=== PATIENT | female | born 1980 | race Caucasian/White ===

== ENCOUNTER → 2017-09-15 13:50 | Outpatient (CLI) | payer MEDICAID, SELFPAY ==
--- NOTE | 2017-09-15 13:54 | RAD_ITS ---
STUDY: X-RAY - RIGHT KNEE REASON FOR EXAM: Female, 37 years old. Knee pain. TECHNIQUE: 4 view(s) of the knee. COMPARISON: None. FINDINGS: Normal visualized distal femur. Normal visualized proximal tibia and fibula. Normal proximal tibiofibular articulation. Normal medial femorotibial compartment. Normal lateral femorotibial compartment. Normal patellofemoral articulation. The soft tissue structures are unremarkable. RAD/Knee 4 or More Views IMPRESSION: Normal x-ray examination of the knee. Electronically Signed: Chong Golden MD at 15:40 EST Tel [phone], Service support ,
--- NOTE | 2017-09-15 13:54 | RAD_ITS ---
STUDY: X-RAY - LEFT KNEE REASON FOR EXAM: Female, 37 years old. Bilateral knee pain. TECHNIQUE: 4 view(s) of the knee. COMPARISON: None. FINDINGS: Normal visualized distal femur. Normal visualized proximal tibia and fibula. Normal proximal tibiofibular articulation. There is mild degenerative arthrosis of the medial femorotibial compartment. Normal lateral femorotibial compartment. Normal patellofemoral articulation. The soft tissue structures are unremarkable. RAD/Knee 4 or More Views IMPRESSION: Degenerative arthrosis. Electronically Signed: Chong Golden MD at 15:40 EST Tel [phone], Service support ,
== END ==
PROVIDERS: Visit Provider Orthopaedic Surgery
DX: M17.12 Unilateral primary osteoarthritis, left knee (principal); M25.561 Pain in right knee
CPT/HCPCS: 73564

== ENCOUNTER → 2017-11-22 17:06 | Outpatient (CLI) | payer MEDICAID, SELFPAY ==
--- NOTE | 2017-11-22 17:07 | MRI_ITS ---
STUDY: MRI LEFT KNEE REASON FOR EXAM: Female, 37 years old. Pain. Decreased range of motion. TECHNIQUE: Standardized fat and water weighted pulse sequences were obtained in all 3 orthogonal planes. COMPARISON: X-ray September 16, 2015. FINDINGS: Normal medial meniscus. Normal hyaline cartilage of the medial femorotibial compartment. There is mild osteoarthritic spur formation of the medial knee compartment. Normal medial collateral ligamentous complex (MCL). Normal distal semimembranosus, gracilis and semitendinosus tendons. Normal lateral meniscus. Normal hyaline cartilage of the lateral femorotibial compartment. There is mild osteoarthritic spur formation of the lateral knee compartment. There is reactive marrow edema of the lateral tibial plateau, series 4 images and . Normal proximal tibiofibular articulation. Normal lateral collateral (fibular) ligament. Normal popliteus tendon. Normal biceps femoris tendon. Normal anterior cruciate ligament (ACL). Normal posterior cruciate ligament (PCL). There is arthrosis of the patellofemoral articulation. There is diffuse, less than 50% thickness articular cartilage loss of the patellofemoral compartment. Normal medial and lateral patellar retinaculum. Normal quadriceps tendon. Normal patellar tendon. Normal Hoffa's fat pad. There is a small volume joint effusion. The soft tissues are unremarkable. The otherwise visualized osseous structures are unremarkable. MRI/Lower Ext Joint Only (Routine) IMPRESSION: No meniscal tear. Marrow edema with stress injury or fracture of the lateral tibial plateau. Degenerative change with mild spurring. Electronically Signed: Julio Oakes MD at 19:58 EDT , Service support ,
--- NOTE | 2017-11-22 17:15 | MRI_ITS ---
STUDY: MRI LEFT ANKLE WITHOUT CONTRAST REASON FOR EXAM: Female, 37 years old. Medial ankle pain. History of tarsal tunnel syndrome. History of tibial tendinosis. TECHNIQUE: Standardized fat and water weighted pulse sequences were obtained in all 3 orthogonal planes. COMPARISON: None. FINDINGS: Normal subcutis adipose space. There is minimal posterior tibialis tendinosis with tenosynovitis (axial series 3 images 8-12). Normal flexor digitorum longus tendon. Normal flexor hallucis longus tendon. Normal peroneus longus and brevis tendons. Normal tibialis anterior tendon. Normal extensor hallucis longus tendon. Normal extensor digitorum longus tendons. Normal Achilles tendon and teno-osseous insertion. There is thickening of the proximal plantar fascia with a calcaneal spur. Findings are compatible with plantar fasciitis (sagittal series 7 images 9-14). Normal plantar calcaneal tubercles. Normal intrinsic muscles of the rearfoot. Normal distal tibiofibular syndesmotic ligamentous complex. Normal lateral ligamentous complex. Normal subtalar ligaments and sinus tarsi. There are varices within the tarsal tunnel (axial series 3 images 10-15). Normal deltoid ligamentous complexes. Normal plantar calcaneonavicular (spring) ligament. Normal tibiotalar articulation. Normal talar dome. There is mild subtalar arthrosis (sagittal series 8 images 8-14). There is mild arthrosis of the talonavicular joint (sagittal series 8 images 6-11). Normal calcaneocuboid articulation. Normal navicular-cuneiform articulations. MRI/Lower Ext Joint Only (Routine) IMPRESSION: Posterior tibialis tendinosis with tenosynovitis. Findings compatible with proximal plantar fasciitis. 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 Electronically Signed: Jaylan Crowley MD at 15:55 EDT , Service support ,
== END ==
PROVIDERS: Family Provider Family Medicine; PCP Family Medicine; Visit Provider Orthopaedic Surgery
DX: S83.282A Other tear of lateral meniscus, current injury, left knee, initial encounter (principal); M76.822 Posterior tibial tendinitis, left leg; G57.52 Tarsal tunnel syndrome, left lower limb; M21.42 Flat foot [pes planus] (acquired), left foot; M72.2 Plantar fascial fibromatosis
CPT/HCPCS: 73721

== ENCOUNTER → 2017-12-05 15:33 | Outpatient (CLI) | payer MEDICAID, SELFPAY ==
--- NOTE | 2017-12-05 15:54 | BD_ITS ---
STUDY: DUAL ENERGY X-RAY ABSORPTIOMETRY / DXA REASON FOR EXAM: Female, 37 years old. Left lower tib-fib stress fracture. TECHNIQUE: Bone Mineral Density (BMD) measurements of lumbar spine and bilateral hips were obtained. COMPARISON: None. FINDINGS: Lumbar Spine (L1-L4): g/cm2 (1.228) / T-score (0.4) / Z-score (0.4) Findings are suggestive of normal bone density with a low fracture risk. Left Femur Total: g/cm2 (0.982) / T-score (-0.2) / Z-score (0.0) Left Femoral Neck: g/cm2 (0.972) / T-score (-0.5) / Z-score (-0.1) Right Femur Total: g/cm2 (1.106) / T-score (0.8) / Z-score (1.0) Right Femoral Neck: g/cm2 (1.171) / T-score (1.0) / Z-score (1.4) BD/Dexa Bone Density Study IMPRESSION: The patient is considered normal as outlined below according to World Rodriguez Organization (WHO) criteria with a low fracture risk. Reference Information: The T-score is the number of standard deviations above or below the standard which is normal for young adults at their peak bone mineral density. The World Health Organization (WHO) interprets the T-scores as follows: Above -1 Normal bone density Between -1 and -2.5 Osteopenia Equal to / or below -2.5 Osteoporosis As a practical clinical guideline, osteopenia may be graded as follows: Mild -1 through -1.5 Moderate -1.6 through -2.0 Severe -2.1 through -2.4 The Z-score is the number of standard deviations above or below age-matched controls. A Z-score of less than -1.5 would be considered abnormal. References: 1. NIH Osteoporosis and Related Bone Diseases http://www.osteo.org 2. International Society for Clinical Densitometry http://www.iscd.org 3. National Osteoporosis Foundation http://www.nof.org Electronically Signed: Chong Golden MD at 8:56 EDT Tel [phone], Service support ,
== END ==
PROVIDERS: Family Provider Family Medicine; PCP Family Medicine; Visit Provider Orthopaedic Surgery
DX: M84.369A Stress fracture, unspecified tibia and fibula, initial encounter for fracture (principal)
CPT/HCPCS: 77080

== ENCOUNTER → 2018-01-04 10:28 | Outpatient (CLI) | payer MEDICAID, SELFPAY ==
--- NOTE | 2018-01-04 10:30 | RAD_ITS ---
STUDY: X-RAY - LEFT KNEE REASON FOR EXAM: Female, 37 years old. Stress fracture. TECHNIQUE: 4 view(s) of the knee. COMPARISON: None. FINDINGS: Normal visualized distal femur. Normal visualized proximal tibia and fibula. Normal proximal tibiofibular articulation. There is no demonstrated fracture. Normal medial femorotibial compartment. Normal lateral femorotibial compartment. Normal patellofemoral articulation. There is no demonstrated joint effusion. The soft tissue structures are unremarkable. RAD/Knee 4 or More Views IMPRESSION: Normal x-ray examination of the knee. Electronically Signed: Fantasma Pruitt MD at 17:10 EDT , Service support ,
== END ==
PROVIDERS: Family Provider Family Medicine; PCP Family Medicine; Visit Provider Orthopaedic Surgery
DX: M25.562 Pain in left knee (principal)
CPT/HCPCS: 73564

== ENCOUNTER → 2018-06-28 16:04 | Outpatient (CLI) | payer MEDICAID, SELFPAY ==
[2018-07-03 10:49] LABS: HPV Reflexed? NOT INDICATED
--- OUTSIDE RECORDS SUMMARY | 2018-08-14 13:43 | XMS RPT_ITS ---
:1980 Author Organization [facility] Care Team Providers Name Role Phone DOMITILA RINCON Attending Unavailable KRJAIME, DOMITILA Referring Unavailable KRUPITZER, DOMITILA Referring Unavailable SARAH MANLEY () Attending Unavailable KRUPCONCEPCION, DOMITILA Referring Unavailable KRUPITZER, DOMITILA Referring Unavailable KRUPITZER, DOMITILA Attending Unavailable KRUPITZER, DOMITILA Attending Unavailable Weeman, Ken Attending Unavailable Laura, Ken Referring Unavailable Krupitzer, Domitila R Primary Care Unavailable Galo, Elijah Attending Unavailable Primay Care Physicia, No Referring Unavailable Primay Care Physicia, No Primary Care Unavailable Elijah Rosenthal Attending Unavailable Galo, Elijah Referring Unavailable Primay Care Physicia, No Primary Care Unavailable Galo, Elijah Attending Unavailable Primay Care Physicia, No Referring Unavailable Primay Care Physicia, No Primary Care Unavailable Elijah Rosenthal Attending Unavailable Galo, Elijah Referring Unavailable Krupitzer, Domitila R Primary Care Unavailable Elijah Kenyon Consulting Unavailable Elijah Rosenthal Attending Unavailable Krupitzer, Domitila R Referring Unavailable Krupitzer, Domitila R Primary Care Unavailable Galo, Elijah Attending Unavailable Krupitzer, Domitila R Primary Care Unavailable Glao, Elijah Attending Unavailable Krupitzer, Domitila R Referring Unavailable Krupitzer, Domitila R Primary Care Unavailable Elijah Rosenthal Attending Unavailable Galo, Elijah Referring Unavailable Krupitzer, Domitila R Primary Care Unavailable PROBLEMS PROBLEMS DATE TYPE CONDITION / CODE ATTENDING STATUS SOURCE 06/28/2018 Unknown Z12.4 - Encounter [facility] for screening for Community malignant neoplasm [facility] / Repository Z12.4(ICD-10) 01/04/2018 Unknown M25.562 - Pain in Elijah Rosenthal left knee / Community M25.562(ICD-10) Hospital Repository 09/16/2013 Active Postprocedural NA Active [facility] hypothyroidism / Clinic Main E89.0(ICD-10) [place] Repository 12/07/2017 Active Displaced bicondylar NA Active [facility] fracture of left [facility] Main tibia, subsequent [place] encounter for closed Repository fracture with routine healing / S82.142D(ICD-10) 12/07/2017 Active Myalgia / NA Active [facility] M79.1(ICD-10) Clinic Main [place] Repository 12/07/2017 Active Pain in unspecified NA Active [facility] joint / Clinic Main M25.50(ICD-10) [place] Repository 12/07/2017 Active Pain in left ankle NA Active [facility] joints of left Clinic Main foot / [place] M25.572(ICD-10) Repository 12/07/2017 Active Other chronic pain / NA Active [facility] G89.29(ICD-10) Clinic Main [place] Repository 11/22/2017 Unknown M23.92 - Unspecified Elijah Rosenthal Active [place] internal derangement Community of left knee / Hospital M23.92(ICD-10) Repository 11/22/2017 Unknown S83.282A - Other Elijah Rosenthal Active [facility] tear of lateral Community meniscus, current Hospital injury, left knee, Repository initial encounter / S83.282A(ICD-10) 09/15/2017 Unknown M25.561 - Pain in Elijah Rosenthal Active [facility] right knee / Community M25.561(ICD-10) Hospital Repository 09/15/2017 Unknown M19.011 - Primary Elijah Rosenthal Active [facility] osteoarthritis, Community right shoulder / Hospital M19.011(ICD-10) Repository 09/15/2017 Unknown Z98.890 - Other Elijah Rosenthal Active [place] specified Community postprocedural Hospital states / Repository Z98.890(ICD-10) PROCEDURES PROCEDURES No Procedure Records FoundRESULTS RESULTS PROGRESS Observed: 07/05/2018 Status: COMPLETED Source: [place] 2:11 PM [facility] RE[facility]IT[facility] HNO ID: [id number] Author: Domitila Rincon Service: (none) Author Type: Physician Type: Progress Notes Filed: 07/05/2018 3:24 PM Note Text: Rody Malave is a 37 year old female presenting for Established Patient (Pt states here for joint pain) FM: She has still been getting the joint pain Seems to have gotten worse Worse in her hands and fingers No swelling Has pain all the time, Sharp pain, Move a certain way, and will get a jolt of pain Worse in the morning Is slightly better when she is active Get burning pain in the elbows Has in the shoulder, elbows, back, knees Hips are ok She does walk on the treadmill Does not help Depression: Has been doing the zoloft Had seen [facility] SOLO[facility] Was diagnosed with endometriosis She was supposed to be started OCP Has been noticing some heart palpitations at night Will be fast and hard at times Will last for about 1 hour Will then go away HISTORIES: PAST MEDICAL HISTORY Diagnosis Date - Anxiety - Calcaneal spur of foot Lt - Depression on zoloft since 2003 - Endometriosis - Multiple thyroid nodules - Post-surgical hypothyroidism PAST SURGICAL HISTORY Procedure Laterality Date - ; THYROIDECTOMY TOTAL OR COMPLETE 08/16/12 [facility] - COLONOSCOP W/ OR W/O [facility] SPEC 09/10/14 Colonoscopy - EGD W/O OR W/BRUSH/WASH 07/04/2014 EGD - EXPLORATORY OF ABDOMEN 1998 Laparotomy, exp removal 2 cysts and endometrial implants - VAGINAL DELIVERY ONLY x3 FAMILY HISTORY Problem Relation Age of Onset - Diabetes Mother - None Father - None Sister - None Sister Social History: Social History Substance Use Topics - Smoking status: Never Smoker - Smokeless tobacco: Never Used - Alcohol use No Allergies: ALLERGIES No Known Allergies Medications: cyclobenzaprine (FLEXERIL) 10 mg tablet Take 1 tablet by mouth twice daily as needed. DIGESTIVE PROBIOTIC 2 billion cell cpSP Take 1 capsule by mouth once daily. levothyroxine (SYNTHROID) 150 mcg tablet Take 1 tablet by mouth once daily. With additional 1/2 tablet 2 days per week. Take on empty stomach. For Thyroid. multivitamin tablet Take 1 tablet by mouth once daily. pregabalin (LYRICA) 75 mg capsule Take 1 capsule by mouth twice daily for 90 days. sertraline (ZOLOFT) 50 mg tablet Take 1 tablet by mouth once daily. REVIEW OF SYSTEMS See HPI PHYSICAL EXAMINATION: BP 122/84 Pulse 65 Temp 37.1 ?C (98.7 ?F) (Oral) Resp 18 Wt 104.2 kg (229 lb 12.8 oz) SpO2 100% BMI 38.24 kg/m? General Appearance: Well appearing, alert, in no acute distress, well-hydrated, well nourished. and Overweight. Neck: Supple, no adenopathy; thyroid symmetric, normal size, no bruits. Lungs: lungs clear to auscultation. No wheezing, rhonchi, rales. Heart: RRR without murmur, gallop, or rubs. No ectopy. Extremities: No deformities, edema, skin discoloration, clubbing or cyanosis. Good capillary refill. . Musculoskeletal: Neck?tenderness noted in the paraspinals as well as the midline Upper extremities?tenderness noted over the joint capsule as well as over the medial and lateral epicondyles bilaterally Hands?no joint swelling or redness, tenderness to palpation in the inner phalangeal joints bilaterally Back?tenderness in the paraspinals and SI joints of the lumbar spine No tenderness noted in the hips Knees?tenderness over the medial lateral joint lines, no effusion, tenderness noted diffusely in the lower legs, no edema, no redness. Peripheral Pulses: Normal. Psych: Appropriate mood and affect, maintains good eye contact, answers questions appropriately. ASSESSMENT/PLAN: 1. Fibromyalgia - ICD9: 729.1, ICD10: M79.7 (primary diagnosis) Patient continues with significant joint pain and all over body pain Has been her hands shoulders and upper back lower back knees and lower legs Has been doing the Lyrica but has not noted any significant improvement Did not note any improvement with a course of steroids Had thorough evaluation and workup with rheumatology Not thought to be an inflammatory cause For now, I have added on Cymbalta She will continue with exercise Continue with the Lyrica Recheck in about 2 months Call if anything drastically changes or worsens If no improvement with treatment, may recommend another blood panel for reevaluation with rheumatology - DULOXETINE 30 MG CAPSULE,DELAYED RELEASE 2. Generalized anxiety disorder - ICD9: 300.02, ICD10: F41.1 3. Depression, unspecified depression type - ICD9: 311, ICD10: F32.9 Patient has been doing the Zoloft Unsure how much this has been helping Feels more stressed and anxious Very worried and concerned about ongoing symptoms Has been on the Zoloft for some time however Given the continuing fibromyalgia type symptoms recommended switching to Cymbalta She will slowly taper off the Zoloft and then start the Cymbalta She will keep me updated via my chart in 4?5 weeks Will also follow-up in 8 weeks 4. Post-surgical hypothyroidism - ICD9: 244.0, ICD10: E89.0 Continue same dose of Synthroid TSH Date Value Ref Range Status 01/23/2018 3.130 0.400 - 5.500 uU/mL Final Comment: If the patient is , TSH reference range varies by gestational period: First Trimester 0.100-2.500 uU/mL Second Trimester 0.200-3.000 uU/mL Third Trimester 0.300-3.000 uU/mL References: 1. De Brianot L, Carlos M, Julien EK, et al. Management of Thyroid Dysfunction during and : An Endocrine Society Clinical Practice Guideline. J Clin Endocrinol Metab, 2012:97:7970-1724. 2. Abe HAMILTON. Overview of thyroid disease in . UpToDate. 2016. Accessed on January 01, 2016. 5. Palpitations - ICD9: 785.1, ICD10: R00.2 Patient has reported couple episodes of palpitations mainly at nighttime Reports no chest pain, shortness of breath, no coughing For now, we'll continue to monitor and she will keep track of when she gets it and see if there is some sort of inciting event Dmoitila Rincon MD Component Latest Ref Rng AND Units 08/06/2015 09/28/2015 09/01/2016 12/07/2016 12/07/2016 12/07/2016 12/07/2016 12/07/2017 01/23/2018 11:25 AM 11:25 AM 11:25 AM 11:33 AM WBC 3.70 - 11.00 k/uL 5.45 4.29 5.73 RBC 3.90 - 5.20 m/uL 4.90 4.73 4.81 Hemoglobin 11.5 - 15.5 g/dL 13.9 13.2 13.6 Hematocrit 36.0 - 46.0 % 42.0 42.7 42.6 MCV 80.0 - 100.0 fL 85.7 90.3 88.6 MCH 26.0 - 34.0 pG 28.4 27.9 28.3 MCHC 30.5 - 36.0 g/dL 33.1 30.9 31.9 RDW-CV 11.5 - 15.0 % 13.0 12.4 12.5 Platelet Count 150 - 400 k/uL 274 269 250 MPV 9.0 - 12.7 fL 9.6 9.8 9.6 Neut% % 61.1 51.9 Abs Neut (ANC) 1.45 - 7.50 k/uL 3.33 2.23 Lymph% % 30.6 37.5 Abs Lymph 1.00 - 4.00 k/uL 1.67 1.61 [place]% % 7.3 8.9 Abs [place]trim 0.00 - 0.86 k/uL 0.40 0.38 Eosin% % 0.6 1.2 Abs Eosin 0.00 - 0.45 k/uL 0.03 0.05 Baso% % 0.4 0.5 Abs Baso 0.00 - 0.10 k/uL 0.02 0.02 Nucleated Reds 0 /100 WBC 0.0 NRBC 0 /100 WBC 0 Absolute nRBC <0.01 k/uL 0.00 <0.01 Diff Type Auto Diff Auto Diff Protein, Total 6.3 - 8.0 g/dL 7.3 6.8 7.2 Albumin 3.9 - 4.9 g/dL 4.5 4.2 4.5 Calcium 8.5 - 10.2 mg/dL 9.6 9.3 9.3 Bilirubin, Total 0.2 - 1.3 mg/dL 0.6 0.4 0.7 Alkaline Phosphatase 32 - 117 U/L 48 39 41 AST 13 - 35 U/L 22 17 18 Glucose 74 - 99 mg/dL 80 89 94 BUN 7 - 21 mg/dL 10 10 11 Creatinine 0.58 - 0.96 mg/dL 0.93 0.90 0.85 0.85 Sodium 136 - 144 mmol/L 140 141 139 Potassium 3.7 - 5.1 mmol/L 4.5 4.3 4.1 Chloride 97 - 105 mmol/L 103 103 102 CO2 22 - 30 mmol/L 25 25 27 Anion Gap 9 - 18 mmol/L 12 13 10 ALT 7 - 38 U/L 13 11 12 eGFR- >60 >60 >60 >60 eGFR-All Other Races . >60 >60 >60 >60 Sm Antibody <1.0 AI <0.2 MONITORING SPECIALIST Antibody <1.0 AI 0.6 SSA Antibody <1.0 AI <0.2 SSB Antibody <1.0 AI <0.2 Centromere Ab <1.0 AI <0.2 Scleroderma Ab, IgG <1.0 AI <0.2 Lexy 1 Antibody <1.0 AI <0.2 Ribosomal MONITORING SPECIALIST <1.0 AI <0.2 Chromatin Antibody <1.0 AI <0.2 Bilirubin, Conjug <0.2 mg/dL 0.2 (H) Hep B Core Ab, Total Negative Negative Hep C Antibody IA Negative Negative Hep B Surface Ag Negative Negative Hep B Surface Ab, Qual Negative Negative Culture Account Credited Specimen Rejected. Specimen unacceptable, received on dry swab. Clinic Desk[facility] notified. Spoke to . . . DIMITRI Negative Positive (A) DIMITRI Titer Negative 1:160 (A) DIMITRI Pattern Atypical speckled Hemoglobin A1C 4.3 - 5.6 % 5.4 Estimated Average Glucose mg/dL 108 TSH 0.400 - 5.500 uU/mL 6.700 (H) 2.130 88.440 (H) 0.799 19.510 (H) 3.130 Free T4 0.9 - 1.7 ng/dL 1.2 1.2 Rheumatoid Factor <16 IU/mL 12 WSR 0 - 20 mm/hr 2 CK 42 - 196 U/L 98 UltraSens C-Reactive Protein <3.1 mg/L 0.6 CCP Antibody, IgG <20 Units <15 Anti-SSA <1.0 AI <0.2 Anti-SSB <1.0 AI <0.2 ANAP LEON Reflex Bill Billed for services performed DNA Antibody w/Confirmation <30 IU/mL <12 C3 86 - 166 mg/dL 103 C4 13 - 46 mg/dL 24 Treatment Recommendations for Fibromyalgia developed by Dr. Stewart Ornelas M.D. ? ? 1. Medications: We recommend first trying a tricyclic antidepressant such as cyclobenzaprine (Flexeril) or amitriptyline (Elavil) in patients who have not yet had an adequate trial of this class of medications. We prefer Flexeril. Although Flexeril is generally marketed as a muscle relaxant, the similarities in chemical structure to the tricyclic antidepressants make it a very useful medication to treat pain and it can also be helpful for treating sleep disturbance. Begin Flexeril at a dose of 5 mg 2-3 hours before bedtime. Taking the medication in this fashion can help decrease morning grogginess. Increase the dose by 5 mg every week as tolerated until a total dose of 20 mg is achieved. Increased fluid intake may decrease the incidence of dry mouth and constipation. Patients should also be warned about potential weight gain. Amitriptyline (Elavil) can be used similarly in doses starting at 10 mg before bedtime, increasing by 10 mg weekly as tolerated up to 50 mg. Nortriptyline is also a good choice for many people. ? If maximum tolerated doses of trycyclics are not providing adequate pain relief, we recommend addition (if Flexeril/Elavil is helping) or substitution of a dual reuptake inhibitor such as Cymbalta (duloxetine) or Savella (milnacipran). Such drugs may be the drug of first choice in fibromyalgia patients with prominent depression or fatigue, as they often work well for these co-morbid symptoms (in addition to treating pain). Begin Cymbalta at 30 mg once daily with food. The dose can eventually be increased up to a total of 120 mg per day as tolerated, taken either as a single night time dose or b.i.d. Begin Savella at 25 mg, slowly increasing the dose as tolerated to a maximum of 100mg daily (e.g. 50 mg b.i.d.). Both drugs may initially cause nausea, palpitations, and other ?noradrenergic? side effects, so patients should be instructed that this may happen. These side effects usually resolve over time. ? Another class of medication with proven efficacy in fibromyalgia are the [id number] ligands, Neurontin (gabapentin) and Lyrica (pregabalin). This class of drug might be the best first choice for a fibromyalgia patient with prominent sleep problems. Lyrica is specifically approved for fibromyalgia, at doses of both 300 and 450mg. For Neurontin, doses typically in the range of 1500 ? 3000 mg are necessary to treat pain. Both drugs are better tolerated if most or even all of the dose is taken at bedtime (e.g. 150 mg in the morning and 300 mg at night for Lyrica, or 600 mg in the morning and 1200 mg at night for Neurontin). ? Some of the other medications that can be helpful in some fibromyalgia patients are higher doses of older SSRI?s such as Prozac, Zoloft, or Paxil. Dosages higher than those typically used for treating depression (e.g. 40 ? 50 mg of Prozac) are often necessary as it appears that at these higher dosages the important noradrenergic activity of these drugs becomes more prominent. Gamma hydroxybutyrate (particularly in those with significant sleep problems) and dopamine agonists (in those with co-morbid restless leg syndrome) can also be helpful in subsets of fibromyalgia patients. ? 2. Non-pharmacologic management: Activity/exercise. A mccullough aspect of fibromyalgia management is for the patient to appreciate that when their symptom(s) decrease in response to pharmacologic therapy, they must correspondingly increase their function. For example, when medication(s) diminishes pain, fatigue or other symptoms by 20%, this should lead to a 20% increase in activity/function. Such an increase in function and activity may result in a continuing reduction in complaints of pain, fatigue, etc. and may also diminish associated depressive and anxiety symptoms. ? We highly recommend patients make use of the [facility] website, (www.zlien.[employer].com), that provides a self-management program for people living with fibromyalgia. When tested in a trial, this was shown to be quite effective at improving symptoms. ? 3. Chronic Pain Rehabilitation Program: We urge patients to attend the Chronic Pain Rehabilitation Program here at [facility]. This program enables patients to be cared for by a multidisciplinary team of providers including experts in pain management, stress management training, physical and occupational therapy, vocational rehabilitation, nursing, nutrition, and psychotherapy. If you are interested, please call [phone] or to schedule an appointment for evaluation. PROGRESS Observed: 07/05/2018 Status: COMPLETED Source: [place] 1:57 PM [facility] REPOSITORY HNO ID: [id number] Author: Arthur Stephens Ma Service: (none) Author Type: (none) Type: Progress Notes Filed: 07/05/2018 3:24 PM Note Text: HPV EVERY 5 YEARS due on 2008 PAP EVERY 5 YEARS due on 07/17/2017 INFLUENZA(1) due on 03/17/2018 CNOV Observed: 07/05/2018 Status: COMPLETED Source: [place] 1:40 PM [facility] REPOSITORY Office Visit (FAM[facility]) RODY MALAVE ([id number]) 1980 F [facility] Date Time Provider Department 07/05/18 1:40 PM DOMITILA RINCON During your visit today, we recorded the following information about you: Temperature Pulse Respiration Blood pressure 98.7 degrees 65/minute 18/minute 122/84 Weight 104.2 kg Arthur Stephens Ma 07/05/2018 1:59 PM Signed Patient presents with: Established Patient: Pt states here for joint pain Jacekjer Angelo Bingham 07/05/2018 3:24 PM Signed HPV EVERY 5 YEARS due on 2008 PAP EVERY 5 YEARS due on 07/17/2017 INFLUENZA(1) due on 03/17/2018 Domitila Rincon MD 07/05/2018 3:24 PM Signed Rody Malave is a 37 year old female presenting for Established Patient (Pt states here for joint pain) FM: She has still been getting the joint pain Seems to have gotten worse Worse in her hands and fingers No swelling Has pain all the time, Sharp pain, Move a certain way, and will get a jolt of pain Worse in the morning Is slightly better when she is active Get burning pain in the elbows Has in the shoulder, elbows, back, knees Hips are ok She does walk on the treadmill Does not help Depression: Has been doing the zoloft Had seen BALLET SOLOIST Was diagnosed with endometriosis She was supposed to be started OCP Has been noticing some heart palpitations at night Will be fast and hard at times Will last for about 1 hour Will then go away HISTORIES: PAST MEDICAL HISTORY Diagnosis Date - Anxiety - Calcaneal spur of foot Lt - Depression on zoloft since 2003 - Endometriosis - Multiple thyroid nodules - Post-surgical hypothyroidism PAST SURGICAL HISTORY Procedure Laterality Date - ; THYROIDECTOMY TOTAL OR COMPLETE 08/16/12 Dr Flanagan Mayberry - COLONOSCOP W/ OR W/O [facility] SPEC 09/10/14 Colonoscopy - EGD W/O OR W/BRUSH/WASH 07/04/2014 EGD - EXPLORATORY OF ABDOMEN 1998 Laparotomy, exp removal 2 cysts and endometrial implants - VAGINAL DELIVERY ONLY x3 FAMILY HISTORY Problem Relation Age of Onset - Diabetes Mother - None Father - None Sister - None Sister Social History: Social History Substance Use Topics - Smoking status: Never Smoker - Smokeless tobacco: Never Used - Alcohol use No Allergies: ALLERGIES No Known Allergies Medications: cyclobenzaprine (FLEXERIL) 10 mg tablet Take 1 tablet by mouth twice daily as needed. DIGESTIVE PROBIOTIC 2 billion cell cpSP Take 1 capsule by mouth once daily. levothyroxine (SYNTHROID) 150 mcg tablet Take 1 tablet by mouth once daily. With additional 1/2 tablet 2 days per week. Take on empty stomach. For Thyroid. multivitamin tablet Take 1 tablet by mouth once daily. pregabalin (LYRICA) 75 mg capsule Take 1 capsule by mouth twice daily for 90 days. sertraline (ZOLOFT) 50 mg tablet Take 1 tablet by mouth once daily. REVIEW OF SYSTEMS See HPI PHYSICAL EXAMINATION: BP 122/84 Pulse 65 Temp 37.1 ?C (98.7 ?F) (Oral) Resp 18 Wt 104.2 kg (229 lb 12.8 oz) SpO2 100% BMI 38.24 kg/m? General Appearance: Well appearing, alert, in no acute distress, well-hydrated, well nourished. and Overweight. Neck: Supple, no adenopathy; thyroid symmetric, normal size, no bruits. Lungs: lungs clear to auscultation. No wheezing, rhonchi, rales. Heart: RRR without murmur, gallop, or rubs. No ectopy. Extremities: No deformities, edema, skin discoloration, clubbing or cyanosis. Good capillary refill. . Musculoskeletal: Neck?tenderness noted in the paraspinals as well as the midline Upper extremities?tenderness noted over the joint capsule as well as over the medial and lateral epicondyles bilaterally Hands?no joint swelling or redness, tenderness to palpation in the inner phalangeal joints bilaterally Back?tenderness in the paraspinals and SI joints of the lumbar spine No tenderness noted in the hips Knees?tenderness over the medial lateral joint lines, no effusion, tenderness noted diffusely in the lower legs, no edema, no redness. Peripheral Pulses: Normal. Psych: Appropriate mood and affect, maintains good eye contact, answers questions appropriately. ASSESSMENT/PLAN: 1. Fibromyalgia - ICD9: 729.1, ICD10: M79.7 (primary diagnosis) Patient continues with significant joint pain and all over body pain Has been her hands shoulders and upper back lower back knees and lower legs Has been doing the Lyrica but has not noted any significant improvement Did not note any improvement with a course of steroids Had thorough evaluation and workup with rheumatology Not thought to be an inflammatory cause For now, I have added on Cymbalta She will continue with exercise Continue with the Lyrica Recheck in about 2 months Call if anything drastically changes or worsens If no improvement with treatment, may recommend another blood panel for reevaluation with rheumatology - DULOXETINE 30 MG CAPSULE,DELAYED RELEASE 2. Generalized anxiety disorder - ICD9: 300.02, ICD10: F41.1 3. Depression, unspecified depression type - ICD9: 311, ICD10: F32.9 Patient has been doing the Zoloft Unsure how much this has been helping Feels more stressed and anxious Very worried and concerned about ongoing symptoms Has been on the Zoloft for some time however Given the continuing fibromyalgia type symptoms recommended switching to Cymbalta She will slowly taper off the Zoloft and then start the Cymbalta She will keep me updated via my chart in 4?5 weeks Will also follow-up in 8 weeks 4. Post-surgical hypothyroidism - ICD9: 244.0, ICD10: E89.0 Continue same dose of Synthroid TSH Date Value Ref Range Status 01/23/2018 3.130 0.400 - 5.500 uU/mL Final Comment: If the patient is , TSH reference range varies by gestational period: First Trimester 0.100-2.500 uU/mL Second Trimester 0.200-3.000 uU/mL Third Trimester 0.300-3.000 uU/mL References: 1. Nam L, Carlos M, Julien EK, et al. Management of Thyroid Dysfunction during and : An Endocrine Society Clinical Practice Guideline. J Clin Endocrinol Metab, 2012:97:2543- 2565. 2. Abe HAMILTON. Overview of thyroid disease in . UpToDate. 2016. Accessed on January 01, 2016. 5. Palpitations - ICD9: 785.1, ICD10: R00.2 Patient has reported couple episodes of palpitations mainly at nighttime Reports no chest pain, shortness of breath, no coughing For now, we'll continue to monitor and she will keep track of when she gets it and see if there is some sort of inciting event Domitila Rincon MD Component Latest Ref Rng AND Units 08/06/2015 09/28/2015 09/01/2016 12/07/2016 12/07/2016 12/07/2016 12/07/2016 12/07/2017 01/23/2018 11:25 AM 11:25 AM 11:25 AM 11:33 AM WBC 3.70 - 11.00 k/uL 5.45 4.29 5.73 RBC 3.90 - 5.20 m/uL 4.90 4.73 4.81 Hemoglobin 11.5 - 15.5 g/dL 13.9 13.2 13.6 Hematocrit 36.0 - 46.0 % 42.0 42.7 42.6 MCV 80.0 - 100.0 fL 85.7 90.3 88.6 MCH 26.0 - 34.0 pG 28.4 27.9 28.3 MCHC 30.5 - 36.0 g/dL 33.1 30.9 31.9 RDW-CV 11.5 - 15.0 % 13.0 12.4 12.5 Platelet Count 150 - 400 k/uL 274 269 250 MPV 9.0 - 12.7 fL 9.6 9.8 9.6 Neut% % 61.1 51.9 Abs Neut (ANC) 1.45 - 7.50 k/uL 3.33 2.23 Lymph% % 30.6 37.5 Abs Lymph 1.00 - 4.00 k/uL 1.67 1.61 [place]% % 7.3 8.9 Abs [place] 0.00 - 0.86 k/uL 0.40 0.38 Eosin% % 0.6 1.2 Abs Eosin 0.00 - 0.45 k/uL 0.03 0.05 Baso% % 0.4 0.5 Abs Baso 0.00 - 0.10 k/uL 0.02 0.02 Nucleated Reds 0 /100 WBC 0.0 NRBC 0 /100 WBC 0 Absolute nRBC <0.01 k/uL 0.00 <0.01 Diff Type Auto Diff Auto Diff Protein, Total 6.3 - 8.0 g/dL 7.3 6.8 7.2 Albumin 3.9 - 4.9 g/dL 4.5 4.2 4.5 Calcium 8.5 - 10.2 mg/dL 9.6 9.3 9.3 Bilirubin, Total 0.2 - 1.3 mg/dL 0.6 0.4 0.7 Alkaline Phosphatase 32 - 117 U/L 48 39 41 AST 13 - 35 U/L 22 17 18 Glucose 74 - 99 mg/dL 80 89 94 BUN 7 - 21 mg/dL 10 10 11 Creatinine 0.58 - 0.96 mg/dL 0.93 0.90 0.85 0.85 Sodium 136 - 144 mmol/L 140 141 139 Potassium 3.7 - 5.1 mmol/L 4.5 4.3 4.1 Chloride 97 - 105 mmol/L 103 103 102 CO2 22 - 30 mmol/L 25 25 27 Anion Gap 9 - 18 mmol/L 12 13 10 ALT 7 - 38 U/L 13 11 12 eGFR- >60 >60 >60 >60 eGFR-All Other Races . >60 >60 >60 >60 Sm Antibody <1.0 AI <0.2 MONITORING SPECIALIST Antibody <1.0 AI 0.6 SSA Antibody <1.0 AI <0.2 SSB Antibody <1.0 AI <0.2 Centromere Ab <1.0 AI <0.2 Scleroderma Ab, IgG <1.0 AI <0.2 Lexy 1 Antibody <1.0 AI <0.2 Ribosomal MONITORING SPECIALIST <1.0 AI <0.2 Chromatin Antibody <1.0 AI <0.2 Bilirubin, Conjug <0.2 mg/dL 0.2 (H) Hep B Core Ab, Total Negative Negative Hep C Antibody IA Negative Negative Hep B Surface Ag Negative Negative Hep B Surface Ab, Qual Negative Negative Culture Account Credited Specimen Rejected. Specimen unacceptable, received on dry swab. Clinic Desk[facility] notified. Spoke to . . . DIMITRI Negative Positive (A) DIMITRI Titer Negative 1:160 (A) DIMITRI Pattern Atypical speckled Hemoglobin A1C 4.3 - 5.6 % 5.4 Estimated Average Glucose mg/dL 108 TSH 0.400 - 5.500 uU/mL 6.700 (H) 2.130 88.440 (H) 0.799 19.510 (H) 3.130 Free T4 0.9 - 1.7 ng/dL 1.2 1.2 Rheumatoid Factor <16 IU/mL 12 WSR 0 - 20 mm/hr 2 CK 42 - 196 U/L 98 UltraSens C-Reactive Protein <3.1 mg/L 0.6 CCP Antibody, IgG <20 Units <15 Anti-SSA <1.0 AI <0.2 Anti-SSB <1.0 AI <0.2 ANAP LEON Reflex Bill Billed for services performed DNA Antibody w/Confirmation <30 IU/mL <12 C3 86 - 166 mg/dL 103 C4 13 - 46 mg/dL 24 Treatment Recommendations for Fibromyalgia developed by Dr. Stewart Ornelas M.D. ? ? 1. Medications: We recommend first trying a tricyclic antidepressant such as cyclobenzaprine (Flexeril) or amitriptyline (Elavil) in patients who have not yet had an adequate trial of this class of medications. We prefer Flexeril. Although Flexeril is generally marketed as a muscle relaxant, the similarities in chemical structure to the tricyclic antidepressants make it a very useful medication to treat pain and it can also be helpful for treating sleep disturbance. Begin Flexeril at a dose of 5 mg 2-3 hours before bedtime. Taking the medication in this fashion can help decrease morning grogginess. Increase the dose by 5 mg every week as tolerated until a total dose of 20 mg is achieved. Increased fluid intake may decrease the incidence of dry mouth and constipation. Patients should also be warned about potential weight gain. Amitriptyline (Elavil) can be used similarly in doses starting at 10 mg before bedtime, increasing by 10 mg weekly as tolerated up to 50 mg. Nortriptyline is also a good choice for many people. ? If maximum tolerated doses of trycyclics are not providing adequate pain relief, we recommend addition (if Flexeril/Elavil is helping) or substitution of a dual reuptake inhibitor such as Cymbalta (duloxetine) or Savella (milnacipran). Such drugs may be the drug of first choice in fibromyalgia patients with prominent depression or fatigue, as they often work well for these co-morbid symptoms (in addition to treating pain). Begin Cymbalta at 30 mg once daily with food. The dose can eventually be increased up to a total of 120 mg per day as tolerated, taken either as a single night time dose or b.i.d. Begin Savella at 25 mg, slowly increasing the dose as tolerated to a maximum of 100mg daily (e.g. 50 mg b.i.d.). Both drugs may initially cause nausea, palpitations, and other ?noradrenergic? side effects, so patients should be instructed that this may happen. These side effects usually resolve over time. ? Another class of medication with proven efficacy in fibromyalgia are the seyem-7-ebkow ligands, Neurontin (gabapentin) and Lyrica (pregabalin). This class of drug might be the best first choice for a fibromyalgia patient with prominent sleep problems. Lyrica is specifically approved for fibromyalgia, at doses of both 300 and 450mg. For Neurontin, doses typically in the range of 1500 ? 3000 mg are necessary to treat pain. Both drugs are better tolerated if most or even all of the dose is taken at bedtime (e.g. 150 mg in the morning and 300 mg at night for Lyrica, or 600 mg in the morning and 1200 mg at night for Neurontin). ? Some of the other medications that can be helpful in some fibromyalgia patients are higher doses of older SSRI?s such as Prozac, Zoloft, or Paxil. Dosages higher than those typically used for treating depression (e.g. 40 ? 50 mg of Prozac) are often necessary as it appears that at these higher dosages the important noradrenergic activity of these drugs becomes more prominent. Gamma hydroxybutyrate (particularly in those with significant sleep problems) and dopamine agonists (in those with co-morbid restless leg syndrome) can also be helpful in subsets of fibromyalgia patients. ? 2. Non-pharmacologic management: Activity/exercise. A mccullough aspect of fibromyalgia management is for the patient to appreciate that when their symptom(s) decrease in response to pharmacologic therapy, they must correspondingly increase their function. For example, when medication(s) diminishes pain, fatigue or other symptoms by 20%, this should lead to a 20% increase in activity/function. Such an increase in function and activity may result in a continuing reduction in complaints of pain, fatigue, etc. and may also diminish associated depressive and anxiety symptoms. ? We highly recommend patients make use of the FibroGuSignNow website, (www.zlien.com), that provides a self-management program for people living with fibromyalgia. When tested in a trial, this was shown to be quite effective at improving symptoms. ? 3. Chronic Pain Rehabilitation Program: We urge patients to attend the Chronic Pain Rehabilitation Program here at [facility]. This program enables patients to be cared for by a multidisciplinary team of providers including experts in pain management, stress management training, physical and occupational therapy, vocational rehabilitation, nursing, nutrition, and psychotherapy. If you are interested, please call [phone] or to schedule an appointment for evaluation. Domitila Rincon MD 07/05/2018 2:24 PM Signed Taper off of the zoloft as directed (1/2 pill for 2-3 days, then 1/2 pill everyother day for 2 doses then stop) Start the Cymbalta Continue on the Lyrica for now Follow up in 2 months Referring Provider: SELF [200] Allergies As of Date: 07/05/2018 (No Known Allergies) Date Reviewed: 07/05/2018 Reviewed by: Arthur Stephens Ma - Fully Assessed Reason for Visit: Established Patient [175] Cmt: Pt states here for joint pain Primary Visit Diagnosis:Fibromyalgia [M79.7] Other Visit Diagnoses:Generalized anxiety disorder [F41.1] Depression, unspecified depression type [F32.9] Post-surgical hypothyroidism [E89.0] Palpitations [R00.2] Order(s):DULoxetine (CYMBALTA) 30 mg capsuleTake 1 capsule by mouth once daily.Disp: 30 capsuleRfl: 3 Prescriptions as of 07/05/2018 Sig: CYCLOBENZAPRINE 10 MG TABLET Take 1 tablet by mouth twice * DIGESTIVE PROBIOTIC 2 BILLION* Take 1 capsule by mouth once * LEVOTHYROXINE 150 MCG TABLET Take 1 tablet by mouth once d* MULTIVITAMIN TABLET Take 1 tablet by mouth once d* PREGABALIN 75 MG CAPSULE Take 1 capsule by mouth twice* DULOXETINE 30 MG CAPSULE,TARA* Take 1 capsule by mouth once * Problem List As Of Date 07/05/2018 Noted Resolved CALCANEAL SPUR [M77.30] INVALID FOR* GENERALIZED ANXIETY DIS [F41.1] INVALID FOR* More... 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 Medications Discontinued During This Encounter sertraline (ZOLOFT) 50 mg tablet 30 t* 3 03/05/2018 07/05/2018 Route: ORAL Sig: Take 1 tablet by mouth once daily. Disc: Reason for discontinue is not on file. Disposition: Return in about 2 months (around 09/05/2018). Follow-up and Disposition History Recorded Encounter Status:Closed by DOMITILA RINCON MD on 07/05/18 PAP IG W/REFLEX HR Collected: 06/28/2018 Status: F Source: [facility] HPV APTIMA 12:15 PM [facility] REPOSITORY Order Comment: CYTOLOGY INFORMATION: - CLINICAL INFORMATION: - DATE LMP/MENOPAUSE: 06/18/18 LMP - COLLECTION VIAL: Thin Prep Vial - BALLET SOLOIST SOURCE: CERVICAL/ENDOCERVICAL - COLLECTION TECHNIQUE: BRUSH/SPATULA Specimen Comment: [id number] Specimen Comment: Source.............Cervix;Endocervix Specimen Comment: LMP / Prev Treat...CPB=[id number] Specimen Comment: No. of containers..01 ThinPrep Vial TYPE CODE TESTS RESULT OUT OF RANGE REFERENCE UNITS LAB L7400.0800 . Normal DIAGN Comment Result Comment: NEGATIVE FOR INTRAEPITHELIAL LESION AND MALIGNANCY. LAB L7400.0900 . Normal ADEQ Comment Result Comment: Satisfactory for evaluation. Endocervical and/or squamous metaplastic cells (endocervical component) are present. LAB L7400.1400 . Normal PERFORM Comment Result Comment: Argelia Quinones, [place] Operator (ASCP) LAB L7400.2575 . Normal TEST METHOD Comment Result Comment: This liquid based ThinPrep(R) pap test was screened with the use of an image guided system. LAB L7400.2600 . Normal . COMM LAB L7400.2700 . Normal PAPSMR Comment Result Comment: The Pap smear is a screening test designed to aid in the detection of premalignant and malignant conditions of the uterine cervix. It is not a diagnostic procedure and should not be used as the sole means of detecting cervical cancer. Both false-positive and false-negative reports do occur. LAB L7400.2800 . Normal HPV RFLX Comment Result Comment: The HPV DNA reflex criteria were not met with this specimen result therefore, no HPV testing was performed. Performed at: - [facility] [place] [id number] Gathering Machine Setter: Carrie Lopez MD, Phone: [phone] Performed By: #### L7400.0357 #### [facility] (refer to report for specific site) refer to report for address and phone number CNPN Observed: 06/26/2018 Status: COMPLETED Source: [place] 12:00 AM [facility] REPOSITORY Telephone (FAM[facility]) RODY MALAVE ([id number]) 1980 F T Date Time Provider Department 06/26/18 DOMITILA RINCON During your visit today, we recorded the following information about you: Arthur Stephens Ma 06/26/2018 1:32 PM Signed PRIOR AUTHORIZATION Medication for Prior Authorization: Lyrica 75 mg Other formulary meds available : Unknown Insurance Company: [employer] phone number: [phone] Patient insurance ID number: [id number] Arthur Stephens Ma Given to Dr. Rincon to review and sign. Fax back to [phone] Domitila Rincon MD 06/26/2018 2:24 PM Signed Form was completed and placed in out box Form was for PA for lyrica Please fax/mail back Thanks SELENA Stephens Ma 06/26/2018 5:41 PM Signed Form faxed. Transmission ok. Arthur Stephens Ma 07/02/2018 12:56 PM Signed Request for coverage approved. Valid 03-16-18 thru 03-29-19 PA# [id number] Pt advised. Copy kept. Allergies As of Date: 06/26/2018 (No Known Allergies) Date Reviewed: 02/07/2018 Reviewed by: Arthur Stephens Ma - Fully Assessed Reason for Visit: Insurance Authorization [[id number]] Cmt: [employer]aresource-Lyrica Prescriptions as of 06/26/2018 Sig: CYCLOBENZAPRINE 10 MG TABLET Take 1 tablet by mouth twice * DIGESTIVE PROBIOTIC 2 BILLION* Take 1 capsule by mouth once * LEVOTHYROXINE 150 MCG TABLET Take 1 tablet by mouth once d* MULTIVITAMIN TABLET Take 1 tablet by mouth once d* PREGABALIN 75 MG CAPSULE Take 1 capsule by mouth twice* SERTRALINE 50 MG TABLET Take 1 tablet by mouth once d* Problem List As Of Date 06/26/2018 Noted Resolved CALCANEAL SPUR [M77.30] INVALID FOR* GENERALIZED ANXIETY DIS [F41.1] INVALID FOR* More... 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.*INVALID FOR* Fibromyalgia [M79.7] INVALID FOR* Encounter Status:Closed by ARTHUR STEPHENS MA on 06/26/18 PROGRESS Observed: 02/07/2018 Status: COMPLETED Source: [place] 8:08 AM [facility] REPOSITORY HNO ID: [id number] Author: Arthur Stephens Ma Service: (none) Author Type: (none) Type: Progress Notes Filed: 02/07/2018 8:32 AM Note Text: BLOOD PRESSURE CONTROLLED due on 1996 HPV EVERY 5 YEARS due on 2008 PAP EVERY 5 YEARS due on 07/17/2017 PROGRESS Observed: 02/07/2018 Status: COMPLETED Source: [place] 8:05 AM [facility] REPOSITORY HNO ID: [id number] Author: Domitila Rincon Service: (none) Author Type: Physician Type: Progress Notes Filed: 02/07/2018 8:32 AM Note Text: Rody Malave is a 37 year old female presenting for follow up Joint pain/arthritis: She did see rheum Was tried on prednisone with no relief of symptoms Not thought be Inflammatory Possible FM Suggest treatment for that She has noticed that she will break out in a rash on her face occure when she ate something garlic cauliflower She is still getting the all over bone pain She has been getting some arm pain, leg pain, back pain Anxiety/depression: Has been on zoloft for years Does still work for her Thyroid: Has been taking the synthroid Recent blood work was good Has no symptoms of hyper or hypo No issues with medications HISTORIES: PAST MEDICAL HISTORY Diagnosis Date - Anxiety - Calcaneal spur of foot Lt - Depression on zoloft since 2003 - Endometriosis - Multiple thyroid nodules - Post-surgical hypothyroidism PAST SURGICAL HISTORY Procedure Laterality Date - ; THYROIDECTOMY TOTAL OR COMPLETE 08/16/12 [facility]anda Merida - COLONOSCOP W/ OR W/O [facility] SPEC 09/10/14 Colonoscopy - EGD W/O OR W/BRUSH/WASH 07/04/2014 EGD - EXPLORATORY OF ABDOMEN 1998 Laparotomy, exp removal 2 cysts and endometrial implants - VAGINAL DELIVERY ONLY x3 FAMILY HISTORY Problem Relation Age of Onset - Diabetes Mother - None Father - None Sister - None Sister Social History: Social History Substance Use Topics - Smoking status: Never Smoker - Smokeless tobacco: Never Used - Alcohol use No Allergies: ALLERGIES No Known Allergies Medications: sertraline (ZOLOFT) 50 mg tablet Take 1 tablet by mouth once daily. levothyroxine (SYNTHROID) 150 mcg tablet Take 1 tablet by mouth once daily. With additional 1/2 tablet 2 days per week. Take on empty stomach. For Thyroid. multivitamin tablet Take 1 tablet by mouth once daily. DIGESTIVE PROBIOTIC 2 billion cell cpSP Take 1 capsule by mouth once daily. cyclobenzaprine (FLEXERIL) 10 mg tablet Take 1 tablet by mouth twice daily as needed. amitriptyline (ELAVIL) 25 mg tablet Take 1 tablet by mouth daily at bedtime. REVIEW OF SYSTEMS See HPI PHYSICAL EXAMINATION: BP 119/58 Pulse 60 Temp 36.8 ?C (98.3 ?F) (Oral) Resp 18 Wt 100.1 kg (220 lb 11.2 oz) SpO2 99% BMI 36.73 kg/m? General Appearance: Well appearing, alert, in no acute distress, well-hydrated, well nourished. and Overweight. Psych: Appropriate mood and affect ASSESSMENT/PLAN: 1. Fibromyalgia - ICD9: 729.1, ICD10: M79.7 (primary diagnosis) Reviewed workup with rheumatology Patient still complains of diffuse pain and neck shoulders arms back legs knees etc. Review blood work Patient did do a trial of prednisone but noted no change or improvement in symptoms Rheumatology ruled out any inflammatory cause and tentative diagnosis of fibromyalgia Recommend treatment regimen for that We'll initiate Flexeril 10 mg twice a day as needed Amitriptyline 25 mg at night follow-up in 6 weeks counseled on doing increased exercise including yoga, Pilates, stretching Depending on how she's doing, could increase the dose of amitriptyline or increased the frequency of the Flexeril If no improvement or side effects, other medications to try include Cymbalta, higher doses of SSRIs, Lyrica, Neurontin - CYCLOBENZAPRINE 10 MG TABLET - AMITRIPTYLINE 25 MG TABLET 2. Generalized anxiety disorder - ICD9: 300.02, ICD10: F41.1 3. Depression, unspecified depression type - ICD9: 311, ICD10: F32.9 Continue with The Zoloft for now Does seem to be working well 4. Post-surgical hypothyroidism - ICD9: 244.0, ICD10: E89.0 - Instructed patient on importance of taking on an empty stomach either first thing in the morning or at bedtime. Continue same dose of synthroid Reviewed recent blood work and level was good 5. BMI 40.0-44.9, adult (HCC) - ICD9: V85.41, ICD10: Z68.41 Patient has been working on diet, exercise, weight control Domitila Rincon MD blood work reviewed: Component Latest Ref Rng AND Units 09/28/2015 09/01/2016 12/07/2016 12/07/2017 01/23/2018 WBC 3.70 - 11.00 k/uL 4.29 5.73 RBC 3.90 - 5.20 m/uL 4.73 4.81 Hemoglobin 11.5 - 15.5 g/dL 13.2 13.6 Hematocrit 36.0 - 46.0 % 42.7 42.6 MCV 80.0 - 100.0 fL 90.3 88.6 MCH 26.0 - 34.0 pG 27.9 28.3 MCHC 30.5 - 36.0 g/dL 30.9 31.9 RDW-CV 11.5 - 15.0 % 12.4 12.5 Platelet Count 150 - 400 k/uL 269 250 MPV 9.0 - 12.7 fL 9.8 9.6 Neut% % 51.9 Abs Neut (ANC) 1.45 - 7.50 k/uL 2.23 Lymph% % 37.5 Abs Lymph 1.00 - 4.00 k/uL 1.61 [place]% % 8.9 Abs [place] 0.00 - 0.86 k/uL 0.38 Eosin% % 1.2 Abs Eosin 0.00 - 0.45 k/uL 0.05 Baso% % 0.5 Abs Baso 0.00 - 0.10 k/uL 0.02 Nucleated Reds 0 /100 WBC 0.0 NRBC 0 /100 WBC 0 Absolute nRBC <0.01 k/uL 0.00 <0.01 Diff Type Auto Diff Protein, Total 6.3 - 8.0 g/dL 6.8 7.2 Albumin 3.9 - 4.9 g/dL 4.2 4.5 Calcium 8.5 - 10.2 mg/dL 9.3 Bilirubin, Total 0.2 - 1.3 mg/dL 0.4 0.7 Alkaline Phosphatase 32 - 117 U/L 39 41 AST 13 - 35 U/L 17 18 Glucose 74 - 99 mg/dL 94 BUN 7 - 21 mg/dL 11 Creatinine 0.58 - 0.96 mg/dL 0.85 0.85 Sodium 136 - 144 mmol/L 139 Potassium 3.7 - 5.1 mmol/L 4.1 Chloride 97 - 105 mmol/L 102 CO2 22 - 30 mmol/L 27 Anion Gap 9 - 18 mmol/L 10 ALT 7 - 38 U/L 11 12 eGFR- >60 >60 eGFR-All Other Races . >60 >60 Sm Antibody <1.0 AI <0.2 MONITORING SPECIALIST Antibody <1.0 AI 0.6 SSA Antibody <1.0 AI <0.2 SSB Antibody <1.0 AI <0.2 Centromere Ab <1.0 AI <0.2 Scleroderma Ab, IgG <1.0 AI <0.2 Lexy 1 Antibody <1.0 AI <0.2 Ribosomal MONITORING SPECIALIST <1.0 AI <0.2 Chromatin Antibody <1.0 AI <0.2 Bilirubin, Conjug <0.2 mg/dL 0.2 (H) Hep B Core Ab, Total Negative Negative Hep C Antibody IA Negative Negative Hep B Surface Ag Negative Negative Hep B Surface Ab, Qual Negative Negative DIMITRI Negative Positive (A) DIMITRI Titer Negative 1:160 (A) DIMITRI Pattern Atypical speckled Hemoglobin A1C 4.3 - 5.6 % 5.4 Estimated Average Glucose mg/dL 108 TSH 0.400 - 5.500 uU/mL 2.130 88.440 (H) 0.799 19.510 (H) 3.130 Free T4 0.9 - 1.7 ng/dL 1.2 1.2 Rheumatoid Factor <16 IU/mL 12 WSR 0 - 20 mm/hr 2 CK 42 - 196 U/L 98 UltraSens C-Reactive Protein <3.1 mg/L 0.6 CCP Antibody, IgG <20 Units <15 Anti-SSA <1.0 AI <0.2 Anti-SSB <1.0 AI <0.2 ANAP LEON Reflex Bill Billed for services performed DNA Antibody w/Confirmation <30 IU/mL <12 C3 86 - 166 mg/dL 103 C4 13 - 46 mg/dL 24 Treatment Recommendations for Fibromyalgia developed by Dr. Stewart Ornelas M.D. ? ? 1. Medications: We recommend first trying a tricyclic antidepressant such as cyclobenzaprine (Flexeril) or amitriptyline (Elavil) in patients who have not yet had an adequate trial of this class of medications. We prefer Flexeril. Although Flexeril is generally marketed as a muscle relaxant, the similarities in chemical structure to the tricyclic antidepressants make it a very useful medication to treat pain and it can also be helpful for treating sleep disturbance. Begin Flexeril at a dose of 5 mg 2-3 hours before bedtime. Taking the medication in this fashion can help decrease morning grogginess. Increase the dose by 5 mg every week as tolerated until a total dose of 20 mg is achieved. Increased fluid intake may decrease the incidence of dry mouth and constipation. Patients should also be warned about potential weight gain. Amitriptyline (Elavil) can be used similarly in doses starting at 10 mg before bedtime, increasing by 10 mg weekly as tolerated up to 50 mg. Nortriptyline is also a good choice for many people. ? If maximum tolerated doses of trycyclics are not providing adequate pain relief, we recommend addition (if Flexeril/Elavil is helping) or substitution of a dual reuptake inhibitor such as Cymbalta (duloxetine) or Savella (milnacipran). Such drugs may be the drug of first choice in fibromyalgia patients with prominent depression or fatigue, as they often work well for these co-morbid symptoms (in addition to treating pain). Begin Cymbalta at 30 mg once daily with food. The dose can eventually be increased up to a total of 120 mg per day as tolerated, taken either as a single night time dose or b.i.d. Begin Savella at 25 mg, slowly increasing the dose as tolerated to a maximum of 100mg daily (e.g. 50 mg b.i.d.). Both drugs may initially cause nausea, palpitations, and other ?noradrenergic? side effects, so patients should be instructed that this may happen. These side effects usually resolve over time. ? Another class of medication with proven efficacy in fibromyalgia are the fluny-7-ycyxf ligands, Neurontin (gabapentin) and Lyrica (pregabalin). This class of drug might be the best first choice for a fibromyalgia patient with prominent sleep problems. Lyrica is specifically approved for fibromyalgia, at doses of both 300 and 450mg. For Neurontin, doses typically in the range of 1500 ? 3000 mg are necessary to treat pain. Both drugs are better tolerated if most or even all of the dose is taken at bedtime (e.g. 150 mg in the morning and 300 mg at night for Lyrica, or 600 mg in the morning and 1200 mg at night for Neurontin). ? Some of the other medications that can be helpful in some fibromyalgia patients are higher doses of older SSRI?s such as Prozac, Zoloft, or Paxil. Dosages higher than those typically used for treating depression (e.g. 40 ? 50 mg of Prozac) are often necessary as it appears that at these higher dosages the important noradrenergic activity of these drugs becomes more prominent. Gamma hydroxybutyrate (particularly in those with significant sleep problems) and dopamine agonists (in those with co-morbid restless leg syndrome) can also be helpful in subsets of fibromyalgia patients. ? 2. Non-pharmacologic management: Activity/exercise. A mccullough aspect of fibromyalgia management is for the patient to appreciate that when their symptom(s) decrease in response to pharmacologic therapy, they must correspondingly increase their function. For example, when medication(s) diminishes pain, fatigue or other symptoms by 20%, this should lead to a 20% increase in activity/function. Such an increase in function and activity may result in a continuing reduction in complaints of pain, fatigue, etc. and may also diminish associated depressive and anxiety symptoms. ? We highly recommend patients make use of the FibroGuSignNow website, (www.zlien.[employer].com), that provides a self-management program for people living with fibromyalgia. When tested in a trial, this was shown to be quite effective at improving symptoms. ? 3. Chronic Pain Rehabilitation Program: We urge patients to attend the Chronic Pain Rehabilitation Program here at [facility]. This program enables patients to be cared for by a multidisciplinary team of providers including experts in pain management, stress management training, physical and occupational therapy, vocational rehabilitation, nursing, nutrition, and psychotherapy. If you are interested, please call [phone] or to schedule an appointment for evaluation. ? KELSEA Observed: 02/07/2018 Status: COMPLETED Source: [place] 8:00 AM [facility] REPOSITORY Office Visit (FAMDNA) FRIEDARODY Zoraida ([id number]) 1980 F [facility] Date Time Provider Department 02/07/18 8:00 AM DOMITILA RINCON During your visit today, we recorded the following information about you: Temperature Pulse Respiration Blood pressure 98.3 degrees 60/minute 18/minute 119/58 Weight 100.1 kg Domitila Rincon MD 02/07/2018 8:32 AM Signed Rody Conway Frieda is a 37 year old female presenting for follow up Joint pain/arthritis: She did see rheum Was tried on prednisone with no relief of symptoms Not thought be Inflammatory Possible FM Suggest treatment for that She has noticed that she will break out in a rash on her face occure when she ate something garlic cauliflower She is still getting the all over bone pain She has been getting some arm pain, leg pain, back pain Anxiety/depression: Has been on zoloft for years Does still work for her Thyroid: Has been taking the synthroid Recent blood work was good Has no symptoms of hyper or hypo No issues with medications HISTORIES: PAST MEDICAL HISTORY Diagnosis Date - Anxiety - Calcaneal spur of foot Lt - Depression on zoloft since 2003 - Endometriosis - Multiple thyroid nodules - Post-surgical hypothyroidism PAST SURGICAL HISTORY Procedure Laterality Date - ; THYROIDECTOMY TOTAL OR COMPLETE 08/16/12 Shawanda Merida - COLONOSCOP W/ OR W/O BRSH SPEC 09/10/14 Colonoscopy - EGD W/O OR W/BRUSH/WASH 07/04/2014 EGD - EXPLORATORY OF ABDOMEN 1998 Laparotomy, exp removal 2 cysts and endometrial implants - VAGINAL DELIVERY ONLY x3 FAMILY HISTORY Problem Relation Age of Onset - Diabetes Mother - None Father - None Sister - None Sister Social History: Social History Substance Use Topics - Smoking status: Never Smoker - Smokeless tobacco: Never Used - Alcohol use No Allergies: ALLERGIES No Known Allergies Medications: sertraline (ZOLOFT) 50 mg tablet Take 1 tablet by mouth once daily. levothyroxine (SYNTHROID) 150 mcg tablet Take 1 tablet by mouth once daily. With additional 1/2 tablet 2 days per week. Take on empty stomach. For Thyroid. multivitamin tablet Take 1 tablet by mouth once daily. DIGESTIVE PROBIOTIC 2 billion cell cpSP Take 1 capsule by mouth once daily. cyclobenzaprine (FLEXERIL) 10 mg tablet Take 1 tablet by mouth twice daily as needed. amitriptyline (ELAVIL) 25 mg tablet Take 1 tablet by mouth daily at bedtime. REVIEW OF SYSTEMS See HPI PHYSICAL EXAMINATION: BP 119/58 Pulse 60 Temp 36.8 ?C (98.3 ?F) (Oral) Resp 18 Wt 100.1 kg (220 lb 11.2 oz) SpO2 99% BMI 36.73 kg/m? General Appearance: Well appearing, alert, in no acute distress, well-hydrated, well nourished. and Overweight. Psych: Appropriate mood and affect ASSESSMENT/PLAN: 1. Fibromyalgia - ICD9: 729.1, ICD10: M79.7 (primary diagnosis) Reviewed workup with rheumatology Patient still complains of diffuse pain and neck shoulders arms back legs knees etc. Review blood work Patient did do a trial of prednisone but noted no change or improvement in symptoms Rheumatology ruled out any inflammatory cause and tentative diagnosis of fibromyalgia Recommend treatment regimen for that We'll initiate Flexeril 10 mg twice a day as needed Amitriptyline 25 mg at night follow-up in 6 weeks counseled on doing increased exercise including yoga, Pilates, stretching Depending on how she's doing, could increase the dose of amitriptyline or increased the frequency of the Flexeril If no improvement or side effects, other medications to try include Cymbalta, higher doses of SSRIs, Lyrica, Neurontin - CYCLOBENZAPRINE 10 MG TABLET - AMITRIPTYLINE 25 MG TABLET 2. Generalized anxiety disorder - ICD9: 300.02, ICD10: F41.1 3. Depression, unspecified depression type - ICD9: 311, ICD10: F32.9 Continue with The Zoloft for now Does seem to be working well 4. Post-surgical hypothyroidism - ICD9: 244.0, ICD10: E89.0 - Instructed patient on importance of taking on an empty stomach either first thing in the morning or at bedtime. Continue same dose of synthroid Reviewed recent blood work and level was good 5. BMI 40.0-44.9, adult (HCC) - ICD9: V85.41, ICD10: Z68.41 Patient has been working on diet, exercise, weight control Domitila Rincon MD blood work reviewed: Component Latest Ref Rng AND Units 09/28/2015 09/01/2016 12/07/2016 12/07/2017 01/23/2018 WBC 3.70 - 11.00 k/uL 4.29 5.73 RBC 3.90 - 5.20 m/uL 4.73 4.81 Hemoglobin 11.5 - 15.5 g/dL 13.2 13.6 Hematocrit 36.0 - 46.0 % 42.7 42.6 MCV 80.0 - 100.0 fL 90.3 88.6 MCH 26.0 - 34.0 pG 27.9 28.3 MCHC 30.5 - 36.0 g/dL 30.9 31.9 RDW-CV 11.5 - 15.0 % 12.4 12.5 Platelet Count 150 - 400 k/uL 269 250 MPV 9.0 - 12.7 fL 9.8 9.6 Neut% % 51.9 Abs Neut (ANC) 1.45 - 7.50 k/uL 2.23 Lymph% % 37.5 Abs Lymph 1.00 - 4.00 k/uL 1.61 Antrim% % 8.9 Abs Antrim 0.00 - 0.86 k/uL 0.38 Eosin% % 1.2 Abs Eosin 0.00 - 0.45 k/uL 0.05 Baso% % 0.5 Abs Baso 0.00 - 0.10 k/uL 0.02 Nucleated Reds 0 /100 WBC 0.0 NRBC 0 /100 WBC 0 Absolute nRBC <0.01 k/uL 0.00 <0.01 Diff Type Auto Diff Protein, Total 6.3 - 8.0 g/dL 6.8 7.2 Albumin 3.9 - 4.9 g/dL 4.2 4.5 Calcium 8.5 - 10.2 mg/dL 9.3 Bilirubin, Total 0.2 - 1.3 mg/dL 0.4 0.7 Alkaline Phosphatase 32 - 117 U/L 39 41 AST 13 - 35 U/L 17 18 Glucose 74 - 99 mg/dL 94 BUN 7 - 21 mg/dL 11 Creatinine 0.58 - 0.96 mg/dL 0.85 0.85 Sodium 136 - 144 mmol/L 139 Potassium 3.7 - 5.1 mmol/L 4.1 Chloride 97 - 105 mmol/L 102 CO2 22 - 30 mmol/L 27 Anion Gap 9 - 18 mmol/L 10 ALT 7 - 38 U/L 11 12 eGFR- >60 >60 eGFR-All Other Races . >60 >60 Sm Antibody <1.0 AI <0.2 MONITORING SPECIALIST Antibody <1.0 AI 0.6 SSA Antibody <1.0 AI <0.2 SSB Antibody <1.0 AI <0.2 Centromere Ab <1.0 AI <0.2 Scleroderma Ab, IgG <1.0 AI <0.2 Lexy 1 Antibody <1.0 AI <0.2 Ribosomal MONITORING SPECIALIST <1.0 AI <0.2 Chromatin Antibody <1.0 AI <0.2 Bilirubin, Conjug <0.2 mg/dL 0.2 (H) Hep B Core Ab, Total Negative Negative Hep C Antibody IA Negative Negative Hep B Surface Ag Negative Negative Hep B Surface Ab, Qual Negative Negative DIMITRI Negative Positive (A) DIMITRI Titer Negative 1:160 (A) DIMITRI Pattern Atypical speckled Hemoglobin A1C 4.3 - 5.6 % 5.4 Estimated Average Glucose mg/dL 108 TSH 0.400 - 5.500 uU/mL 2.130 88.440 (H) 0.799 19.510 (H) 3.130 Free T4 0.9 - 1.7 ng/dL 1.2 1.2 Rheumatoid Factor <16 IU/mL 12 WSR 0 - 20 mm/hr 2 CK 42 - 196 U/L 98 UltraSens C-Reactive Protein <3.1 mg/L 0.6 CCP Antibody, IgG <20 Units <15 Anti-SSA <1.0 AI <0.2 Anti-SSB <1.0 AI <0.2 ANAP LEON Reflex Bill Billed for services performed DNA Antibody w/Confirmation <30 IU/mL <12 C3 86 - 166 mg/dL 103 C4 13 - 46 mg/dL 24 Treatment Recommendations for Fibromyalgia developed by Dr. Stewart Ornelas M.D. ? ? 1. Medications: We recommend first trying a tricyclic antidepressant such as cyclobenzaprine (Flexeril) or amitriptyline (Elavil) in patients who have not yet had an adequate trial of this class of medications. We prefer Flexeril. Although Flexeril is generally marketed as a muscle relaxant, the similarities in chemical structure to the tricyclic antidepressants make it a very useful medication to treat pain and it can also be helpful for treating sleep disturbance. Begin Flexeril at a dose of 5 mg 2-3 hours before bedtime. Taking the medication in this fashion can help decrease morning grogginess. Increase the dose by 5 mg every week as tolerated until a total dose of 20 mg is achieved. Increased fluid intake may decrease the incidence of dry mouth and constipation. Patients should also be warned about potential weight gain. Amitriptyline (Elavil) can be used similarly in doses starting at 10 mg before bedtime, increasing by 10 mg weekly as tolerated up to 50 mg. Nortriptyline is also a good choice for many people. ? If maximum tolerated doses of trycyclics are not providing adequate pain relief, we recommend addition (if Flexeril/Elavil is helping) or substitution of a dual reuptake inhibitor such as Cymbalta (duloxetine) or Savella (milnacipran). Such drugs may be the drug of first choice in fibromyalgia patients with prominent depression or fatigue, as they often work well for these co-morbid symptoms (in addition to treating pain). Begin Cymbalta at 30 mg once daily with food. The dose can eventually be increased up to a total of 120 mg per day as tolerated, taken either as a single night time dose or b.i.d. Begin Savella at 25 mg, slowly increasing the dose as tolerated to a maximum of 100mg daily (e.g. 50 mg b.i.d.). Both drugs may initially cause nausea, palpitations, and other ?noradrenergic? side effects, so patients should be instructed that this may happen. These side effects usually resolve over time. ? Another class of medication with proven efficacy in fibromyalgia are the [id number] ligands, Neurontin (gabapentin) and Lyrica (pregabalin). This class of drug might be the best first choice for a fibromyalgia patient with prominent sleep problems. Lyrica is specifically approved for fibromyalgia, at doses of both 300 and 450mg. For Neurontin, doses typically in the range of 1500 ? 3000 mg are necessary to treat pain. Both drugs are better tolerated if most or even all of the dose is taken at bedtime (e.g. 150 mg in the morning and 300 mg at night for Lyrica, or 600 mg in the morning and 1200 mg at night for Neurontin). ? Some of the other medications that can be helpful in some fibromyalgia patients are higher doses of older SSRI?s such as Prozac, Zoloft, or Paxil. Dosages higher than those typically used for treating depression (e.g. 40 ? 50 mg of Prozac) are often necessary as it appears that at these higher dosages the important noradrenergic activity of these drugs becomes more prominent. Gamma hydroxybutyrate (particularly in those with significant sleep problems) and dopamine agonists (in those with co-morbid restless leg syndrome) can also be helpful in subsets of fibromyalgia patients. ? 2. Non-pharmacologic management: Activity/exercise. A mccullough aspect of fibromyalgia management is for the patient to appreciate that when their symptom(s) decrease in response to pharmacologic therapy, they must correspondingly increase their function. For example, when medication(s) diminishes pain, fatigue or other symptoms by 20%, this should lead to a 20% increase in activity/function. Such an increase in function and activity may result in a continuing reduction in complaints of pain, fatigue, etc. and may also diminish associated depressive and anxiety symptoms. ? We highly recommend patients make use of the [employer] website, (www.fib[employer] Sol[employer].com), that provides a self-management program for people living with fibromyalgia. When tested in a trial, this was shown to be quite effective at improving symptoms. ? 3. Chronic Pain Rehabilitation Program: We urge patients to attend the Chronic Pain Rehabilitation Program here at [facility]. This program enables patients to be cared for by a multidisciplinary team of providers including experts in pain management, stress management training, physical and occupational therapy, vocational rehabilitation, nursing, nutrition, and psychotherapy. If you are interested, please call [phone] or to schedule an appointment for evaluation. ? Arthur Stephens Ma 02/07/2018 8:10 AM Signed Patient presents with: Established Patient: Pt states here for follow up Arthur Stephens Ma 02/07/2018 8:32 AM Signed BLOOD PRESSURE CONTROLLED due on 1996 HPV EVERY 5 YEARS due on 2008 PAP EVERY 5 YEARS due on 07/17/2017 Domitila Rincon MD 02/07/2018 8:23 AM Signed Try the Elavil and Flexeril Work on exercise, stretching, yoga, etc. Follow up in 6 weeks Referring Provider: SELF [[id number]] Allergies As of Date: 02/07/2018 (No Known Allergies) Date Reviewed: 02/07/2018 Reviewed by: Arthur Stephens Ma - Fully Assessed Reason for Visit: Established Patient [175] Cmt: Pt states here for follow up Primary Visit Diagnosis:Fibromyalgia [M79.7] Other Visit Diagnoses:Generalized anxiety disorder [F41.1] Depression, unspecified depression type [F32.9] Post-surgical hypothyroidism [E89.0] BMI 40.0-44.9, adult (HCC) [Z68.41] Order(s):cyclobenzaprine (FLEXERIL) 10 mg tabletTake 1 tablet by mouth twice daily as needed.Disp: 60 tabletRfl: 3 amitriptyline (ELAVIL) 25 mg tabletTake 1 tablet by mouth daily at bedtime.Disp: 30 tabletRfl: 3 Prescriptions as of 02/07/2018 Sig: SERTRALINE 50 MG TABLET Take 1 tablet by mouth once d* LEVOTHYROXINE 150 MCG TABLET Take 1 tablet by mouth once d* MULTIVITAMIN TABLET Take 1 tablet by mouth once d* DIGESTIVE PROBIOTIC 2 BILLION* Take 1 capsule by mouth once * CYCLOBENZAPRINE 10 MG TABLET Take 1 tablet by mouth twice * AMITRIPTYLINE 25 MG TABLET Take 1 tablet by mouth daily * Problem List As Of Date 02/07/2018 Noted Resolved CALCANEAL SPUR [M77.30] INVALID FOR* GENERALIZED ANXIETY DIS [F41.1] INVALID FOR* More... 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.*INVALID FOR* Other instructions from your clinician: Try the Elavil and Flexeril Work on exercise, stretching, yoga, etc. Follow up in 6 weeks Visit Notes: >> Arthur Stephens Ma MonFeb 07, 2018 8:08 AM Status: Signed Patient presents with: Established Patient: Pt states here for follow up Prescriptions ordered this encounter Disp Refills Start End CYCLOBENZAPRINE 10 MG TABLET 60 t* 3 02/07/2018 Route: ORAL Sig: Take 1 tablet by mouth twice daily as needed. AMITRIPTYLINE 25 MG TABLET 30 t* 3 02/07/2018 Route: ORAL Sig: Take 1 tablet by mouth daily at bedtime. Medications Discontinued During This Encounter predniSONE (DELTASONE) 20 mg tablet 8 ta* 0 01/23/2018 02/07/2018 Sig: Take 30mg (1.5 tablets) once daily x5 days, then stop Disc: Reason for discontinue is not on file. Disposition: Return in about 6 weeks (around 03/21/2018). Follow-up and Disposition History Recorded Encounter Status:Closed by DOMITILA RINCON MD on 02/07/18 TSH Collected: 01/23/2018 Status: F Source: [place] 3:42 [facility] TYPE CODE TESTS RESULT OUT OF RANGE REFERENCE UNITS LAB TSH 0.400-5.500 uU/mL TSH 3.130 Result Comment: If the patient is , TSH reference range varies by gestational period: First Trimester 0.100-2.500 uU/mL Second Trimester 0.200-3.000 uU/mL Third Trimester 0.300-3.000 uU/mL References: 1. Nam L, Carlos M, Julien EK, et al. Management of Thyroid Dysfunction during and : An Endocrine Society Clinical Practice Guideline. J Clin Endocrinol Metab, 2012:97:2363-6348. 2. Abe HAMILTON. Overview of thyroid disease in . UpToDate. 2016. Accessed on January 01, 2016. Performed By: #### TSH #### [facility] [address], [place] [address] FREE T4 Collected: 01/23/2018 Status: F Source: [place] 3:42 PM [facility] REPOSITORY TYPE CODE TESTS RESULT OUT OF RANGE REFERENCE UNITS LAB FT4 0.9-1.7 ng/dL Free T4 1.2 Performed By: #### FT4 #### [facility] [address], [place] [address] CBC Collected: 01/23/2018 Status: F Source: [place] 3:41 PM [facility] REPOSITORY TYPE CODE TESTS RESULT OUT OF REFERENCE UNITS RANGE LAB WBC 3.70-11.00 k/uL WBC 5.73 LAB RBC 3.90-5.20 m/uL RBC 4.81 LAB HGB 11.5-15.5 g/dL Hemoglobin 13.6 LAB HCT 36.0-46.0 % Hematocrit 42.6 LAB MCV 80.0-100.0 fL MCV 88.6 LAB MCH 26.0-34.0 pG MCH 28.3 LAB MCHC 30.5-36.0 g/dL MCHC 31.9 LAB RDWCV 11.5-15.0 % RDW-CV 12.5 LAB PLTCT 150-400 k/uL Platelet Count 250 LAB MPV 9.0-12.7 fL MPV 9.6 LAB ABSNUC <0.01 k/uL Absolute nRBC <0.01 Performed By: #### CBC, CRET1, HFP, HREMOP #### [email or web address] [address], [place] [address] CREATININE Collected: 01/23/2018 Status: F Source: [place] 3:41 [facility] REPOSITORY TYPE CODE TESTS RESULT OUT OF REFERENCE UNITS RANGE LAB CRET 0.58-0.96 mg/dL Creatinine 0.85 LAB GFRAA eGFR- >60 Amer. LAB GFRNAA . eGFR-All Other Races >60 Result Comment: eGFR (Estimated GFR) Units of measure: mL/min/1.73 meters squared eGFR is derived from the reexpressed MDRD Study equation using the following parameters: serum creatinine, age, gender and race. The creatinine assay has been calibrated to be traceable to IDMS. An eGFR <60 mL/min/1.73m2 for >3 months is consistent with chronic kidney disease. Refer to KDOQI guidelines for clinical interpretation. In patients with unstable renal function, e.g. those with acute kidney injury, the eGFR may not accurately reflect actual GFR. Performed By: #### CBC, CRET1, HFP, HREMOP #### [email or web address] [address] [place] [address] HEPATIC FUNCTN PANEL Collected: 01/23/2018 Status: F Source: [place] 3:41 [facility] REPOSITORY TYPE CODE TESTS RESULT OUT OF REFERENCE UNITS RANGE LAB ALB 3.9-4.9 g/dL Albumin 4.5 LAB TBIL 0.2-1.3 mg/dL Bilirubin, Total 0.7 LAB CBIL <0.2 mg/dL High Bilirubin,Conjuga 0.2 ronald LAB ALKP 32-117 U/L Alkaline Phosphatase 41 LAB AST 13-35 U/L AST 18 LAB ALT 7-38 U/L ALT 12 LAB TP 6.3-8.0 g/dL Protein, Total 7.2 Performed By: #### CBC, CRET1, HFP, HREMOP #### [email or web address] [address] [place], [place] [address] HEPATITIS REMOTE PANEL Collected: 01/23/2018 Status: F Source: [place] 3:41 [facility] REPOSITORY TYPE CODE TESTS RESULT OUT OF REFERENCE UNITS RANGE LAB AHBCOT Negative Hep B Core Ab,Total Negative LAB AHCV Negative Hepatitis C Ab Negative IA LAB HBSAGR Negative HBsAg Negative LAB AHBSAG Negative HepB Surface Ab,Qual Negative Result Comment: NEGATIVE Performed By: #### CBC, CRET1, HFP, HREMOP #### [facility] [address] [place], [place] [address] C3 COMPLEMENT Collected: 01/23/2018 Status: F Source: [place] 3:41 PM [facility] REPOSITORY TYPE CODE TESTS RESULT OUT OF REFERENCE UNITS RANGE LAB C3COMP 86-166 mg/dL C3 Complement 103 Performed By: #### C3COMP, C4COMP #### [facility] [address] [place], [place] [address] C4 COMPLEMENT Collected: 01/23/2018 Status: F Source: [place] 3:41 PM [facility] REPOSITORY TYPE CODE TESTS RESULT OUT OF REFERENCE UNITS RANGE LAB C4COMP 13-46 mg/dL C4 Complement 24 Performed By: #### C3COMP, C4COMP #### [facility] [address] [place], [place] [id number] PROGRESS Observed: 01/23/2018 Status: COMPLETED Source: [place] 2:43 PM [facility] REPOSITORY HNO ID: [id number] Author: Sarah Beltrán) Russel Service: (none) Author Type: Physician Type: Progress Notes Filed: 01/23/2018 3:49 PM Note Text: On 01/23/2018, I had the pleasure of seeing Rody Malave at the [facility]. Rody Malave was referred by Dr. Domitila Rincon for an opinion and advice regarding joint and muscle pain. My findings and final recommendations will be communicated to the requesting health care provider by way of the shared medical record for internal providers or letter via the [employer] for external providers. Chief complaint: Joint and muscle pain HPI: To review, Rody Malave is a 37 year old female - For 4-5 yrs, noted onset of L>R elbow and L>R knee pain and swelling. - For 1 year, with pain to involve the shoulders, wrists, MCPs, PIPs and L ankle. Some areas of pain improve with activity including knuckles (back is worse). Worst time of day is morning - In September or October, had stress fracture of the L tibial plateau. Was advised to stay off leg. - With redness over cheeks and chest. Facial erythema constant, not worse with sun exposure but maybe worse with heat like a warm shower. - With hair loss from thyroid issues (diagnosed in ) - Had steroid course in spring for infection but doesn't recall if it helped joint pain - Today, reports diffuse pain - Takes ibuprofen 600mg/day, almost everyday for past 2 months. No improvement joint pain - No mouth sores or photosensitivity - To undergo evaluation for L knee fracture by new ortho (original doctor left) - Morning stiffness x30 minutes PAST MEDICAL HISTORY Diagnosis Date - Anxiety - Calcaneal spur of foot Lt - Depression on zoloft since 2003 - Endometriosis - Multiple thyroid nodules - Post-surgical hypothyroidism Osteoarthritis PAST SURGICAL HISTORY Procedure Laterality Date - ; THYROIDECTOMY TOTAL OR COMPLETE 08/16/12 Shawanda Merida - COLONOSCOP W/ OR W/O BRSH SPEC 09/10/14 Colonoscopy - EGD W/O OR W/BRUSH/WASH 07/04/2014 EGD - EXPLORATORY OF ABDOMEN 1998 Laparotomy, exp removal 2 cysts and endometrial implants - VAGINAL DELIVERY ONLY x3 ALLERGIES No Known Allergies MEDICATIONS: Current Outpatient Prescriptions: sertraline (ZOLOFT) 50 mg tablet Take 1 tablet by mouth once daily. levothyroxine (SYNTHROID) 150 mcg tablet Take 1 tablet by mouth once daily. With additional 1/2 tablet 2 days per week. Take on empty stomach. For Thyroid. multivitamin tablet Take 1 tablet by mouth once daily. DIGESTIVE PROBIOTIC 2 billion cell cpSP Take 1 capsule by mouth once daily. No current facility-administered medications for this visit. FAMILY HISTORY Problem Relation Age of Onset - Diabetes Mother - None Father - None Sister - None Sister SOCIAL HISTORY: Lives in [place]. 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 3 kids, 7 yo son (1st grade), 15 yo daughter (10th grade) and 17 yo son (12th). 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 REVIEW OF SYSTEMS: Bolded items below are present CONSTITUTIONAL: Negative for fever, fatigue, unintentional weight loss EYES: Negative for pain, redness, loss of vision, dryness ENM AND T: Negative for nose bleeds, hearing loss, mouth sores, dysphagia, dry mouth CV: Negative for chest pain, swelling in legs or feet RESPIRATORY: Negative for shortness of breath, pain with breathing, chronic cough, coughing up blood GI: Negative for GERD, nausea, diarrhea, bloody or black stool, abdominal pain GENITOURINARY: Negative for bloody urine, pain with urination MSK: Negative for joint pain, joint swelling, morning stiffness in joints, muscle weakness, back pain SKIN: Negative for rash, sun sensitive rashes, color changes of hands or feet in the cold, hair loss, nail changes NEURO: Negative for headaches, dizziness, paresthesia, memory loss, seizure HEME/LYMPH: Negative for swollen glands, anemia ALLERGIC/IMMUNOLOGIC: Negative for allergies (other than medications), increased susceptibility to infection OTHER CONDITIONS: DM, THYROID, HTN PHYSICAL EXAM: VITALS: Blood pressure 127/89, pulse 62, temperature 36.7 ?C (98 ?F), temperature source Oral, height 165.1 cm (5' 5), weight 97.5 kg (215 lb). CONSTITUTIONAL: Well-appearing, in NAD. SKIN: Nonspecific facial erythema. No alopecia. No sclerodactyly, calcinosis, telangiectasias, digitial ulcers, or skin thickening. EYES: No scleral icterus or conjunctivitis, PERRLA. ENT and Mouth: External ears normal. Nares normal. Mucous membranes normal. Oropharynx normal. No oral ulcers. NECK: No lymphadenopathy, full range of motion RESPIRATORY: Normal breath sounds, clear to auscultation. CARDIOVASCULAR: Regular rate and rhythm, no murmurs or rubs GASTROENTEROLOGY: Normal bowel sounds. Abdomen is soft and non-tender. EXTREMITIES/LYMPH: No edema bilaterally NEURO: Awake, alert and oriented, Normal gait, Strength 5/5 in upper and lower extremity muscles bilaterally, Reflexes symmetrical. MUSCULOSKELETAL: JOINT APPEARANCE: No erythema or warmth of any upper or lower extremity joint. RANGE OF MOTION: Able to fully close fists and curl fingers bilaterally. SWOLLEN JOINTS/SYNOVITIS: No synovitis of any joint. TENDER JOINTS: Tenderness to palpation of the L shoulder, L elbow, bilateral wrists, 2nd-5th MCPs, 2nd-5th PIPs, L knee, L ankle, and L MTPs Widespread Pain Index: 8 (0-19) Symptoms Severity Scale: 7 (0-12) WPI>7 and SS Scale>5 OR WPI 3-6 and SS Scale >9 consistent with fibromyalgia LABORATORY: Component Latest Ref Rng AND Units 08/06/2015 12/07/2016 WBC 3.70 - 11.00 k/uL 4.29 RBC 3.90 - 5.20 m/uL 4.73 Hemoglobin 11.5 - 15.5 g/dL 13.2 Platelet Count 150 - 400 k/uL 269 Alkaline Phosphatase 40 - 150 U/L 48 AST 7 - 40 U/L 22 Glucose 74 - 99 mg/dL 80 89 BUN 7 - 21 mg/dL 10 10 Creatinine 0.58 - 0.96 mg/dL 0.93 0.90 Sodium 136 - 144 mmol/L 140 141 Potassium 3.7 - 5.1 mmol/L 4.5 4.3 Chloride 97 - 105 mmol/L 103 103 CO2 22 - 30 mmol/L 25 25 Anion Gap 9 - 18 mmol/L 12 13 ALT 0 - 45 U/L 13 eGFR- >60 >60 eGFR-All Other Races . >60 >60 Component Latest Ref Rng AND Units 12/07/2017 Sm Antibody <1.0 AI <0.2 MONITORING SPECIALIST Antibody <1.0 AI 0.6 SSA Antibody <1.0 AI <0.2 SSB Antibody <1.0 AI <0.2 Centromere Ab <1.0 AI <0.2 Scleroderma Ab, IgG <1.0 AI <0.2 Lexy 1 Antibody <1.0 AI <0.2 Ribosomal MONITORING SPECIALIST <1.0 AI <0.2 Chromatin Antibody <1.0 AI <0.2 DIMITRI Negative Positive (A) DIMITRI Titer Negative 1:160 (A) DIMITRI Pattern Atypical speckled Rheumatoid Factor <16 IU/mL 12 WSR 0 - 20 mm/hr 2 CK 42 - 196 U/L 98 UltraSens C-Reactive Protein <3.1 mg/L 0.6 CCP Antibody, IgG <20 Units <15 Anti-SSA <1.0 AI <0.2 Anti-SSB <1.0 AI <0.2 DNA Antibody w/Confirmation <30 IU/mL <12 STUDIES: *November MRI L ankle- posterior tibialis tendinosis with tenosynovitis, proximal plantar fasciitis *September xray L knee- IMPRESSION: ?Findings are suggestive of mild degenerative changes of the left knee. IMPRESSION and PLAN: 1. Joint pain: Small joint pain (wrists, MCPs, PIPs) with some inflammatory features per history, making autoimmune or inflammatory arthritis likely. Explained that current pain is likely multifactorial with some component of pain from fibromyalgia. Advised further evaluation for inflammatory arthritis via diagnostic prednisone trial- and that prednisone will unlikely help all areas of pain but should focus on wrists and knuckles. - Explained possible diagnosis - Attempt a diagnostic trial of prednisone 30mg daily x5 days to see if any improvement in joint pain. If there is a significant improvement, this could suggest an inflammatory component of pain which may suggest a diagnosis of inflammatory arthritis. Explained potential side effects including increased appetite, upset stomach (advised taking with food), insomnia (advised taking in morning), increased infection risk, elevated blood glucose levels, elevated blood pressure, and to avoid NSAIDs while on prednisone, tylenol prn ok. Advised to very closely monitor the joint symptoms and contact us to report status upon steroid completion. - Hold ibuprofen for prednisone as above - Advised starting HCQ 200mg bid if improvement with prednisone. Potential side effects were explained, including GI upset, headache, and retinal toxicity leading to blindness. Advised that routine ophthalmology follow-up will be required to monitor for potential toxicity at baseline (ie within 2-3 months of starting) and at least annually thereafter. Literature about Plaquenil was provided for review. - Check labs. Notify of results via [employer]t - Discussed anti-inflammatory diet (found that joint pain improved with vegan diet) 2. Positive DIMITRI: Explained that a general inflammatory arthritis is likely. Has facial erythema and joint pain-see above- in the setting of +DIMITRI and Maykel's, but lupus is not clearly present. Explained that an abnormal DIMITRI is not definitively diagnostic of any particular condition and must be interpreted according to the clinical context. - Evaluation and management as above 3. Fibromyalgia: Meets criteria based on WPI/SS scale score as above. - Explained diagnosis and provided literature on fibromyalgia for review - Advised aerobic exercise - Please refer to the fibromyalgia treatment guidelines as detailed below for further management by PCP 4. General health maintenance: - Advised to continue follow-up with PCP for routine health maintenance and malignancy screening Follow-up as needed pending evaluation for #1. Patient was instructed to call if any new or worsening symptoms. Thank you for allowing me to participate in the care of your patient. Sarah Manley MD Treatment Recommendations for Fibromyalgia developed by Dr. Stewart Ornelas M.D. 1. Medications: We recommend first trying a tricyclic antidepressant such as cyclobenzaprine (Flexeril) or amitriptyline (Elavil) in patients who have not yet had an adequate trial of this class of medications. We prefer Flexeril. Although Flexeril is generally marketed as a muscle relaxant, the similarities in chemical structure to the tricyclic antidepressants make it a very useful medication to treat pain and it can also be helpful for treating sleep disturbance. Begin Flexeril at a dose of 5 mg 2-3 hours before bedtime. Taking the medication in this fashion can help decrease morning grogginess. Increase the dose by 5 mg every week as tolerated until a total dose of 20 mg is achieved. Increased fluid intake may decrease the incidence of dry mouth and constipation. Patients should also be warned about potential weight gain. Amitriptyline (Elavil) can be used similarly in doses starting at 10 mg before bedtime, increasing by 10 mg weekly as tolerated up to 50 mg. Nortriptyline is also a good choice for many people. If maximum tolerated doses of trycyclics are not providing adequate pain relief, we recommend addition (if Flexeril/Elavil is helping) or substitution of a dual reuptake inhibitor such as Cymbalta (duloxetine) or Savella (milnacipran). Such drugs may be the drug of first choice in fibromyalgia patients with prominent depression or fatigue, as they often work well for these co-morbid symptoms (in addition to treating pain). Begin Cymbalta at 30 mg once daily with food. The dose can eventually be increased up to a total of 120 mg per day as tolerated, taken either as a single night time dose or b.i.d. Begin Savella at 25 mg, slowly increasing the dose as tolerated to a maximum of 100mg daily (e.g. 50 mg b.i.d.). Both drugs may initially cause nausea, palpitations, and other ?noradrenergic? side effects, so patients should be instructed that this may happen. These side effects usually resolve over time. Another class of medication with proven efficacy in fibromyalgia are the [id number] ligands, Neurontin (gabapentin) and Lyrica (pregabalin). This class of drug might be the best first choice for a fibromyalgia patient with prominent sleep problems. Lyrica is specifically approved for fibromyalgia, at doses of both 300 and 450mg. For Neurontin, doses typically in the range of 1500 ? 3000 mg are necessary to treat pain. Both drugs are better tolerated if most or even all of the dose is taken at bedtime (e.g. 150 mg in the morning and 300 mg at night for Lyrica, or 600 mg in the morning and 1200 mg at night for Neurontin). Some of the other medications that can be helpful in some fibromyalgia patients are higher doses of older SSRI?s such as Prozac, Zoloft, or Paxil. Dosages higher than those typically used for treating depression (e.g. 40 ? 50 mg of Prozac) are often necessary as it appears that at these higher dosages the important noradrenergic activity of these drugs becomes more prominent. Gamma hydroxybutyrate (particularly in those with significant sleep problems) and dopamine agonists (in those with co-morbid restless leg syndrome) can also be helpful in subsets of fibromyalgia patients. 2. Non-pharmacologic management: Activity/exercise. A mccullough aspect of fibromyalgia management is for the patient to appreciate that when their symptom(s) decrease in response to pharmacologic therapy, they must correspondingly increase their function. For example, when medication(s) diminishes pain, fatigue or other symptoms by 20%, this should lead to a 20% increase in activity/function. Such an increase in function and activity may result in a continuing reduction in complaints of pain, fatigue, etc. and may also diminish associated depressive and anxiety symptoms. We highly recommend patients make use of the [employer] website, (www.zlien.com), that provides a self-management program for people living with fibromyalgia. When tested in a trial, this was shown to be quite effective at improving symptoms. 3. Chronic Pain Rehabilitation Program: We urge patients to attend the Chronic Pain Rehabilitation Program here at [facility]. This program enables patients to be cared for by a multidisciplinary team of providers including experts in pain management, stress management training, physical and occupational therapy, vocational rehabilitation, nursing, nutrition, and psychotherapy. If you are interested, please call [phone] or to schedule an appointment for evaluation. KELSEA Observed: 01/23/2018 Status: COMPLETED Source: [place] 2:40 PM [facility] REPOSITORY Office Visit ([facility]) RODY MALAVE ([id number]) 1980 F CHT Date Time Provider Department 01/23/18 2:40 PM SARAH MANLEY MD During your visit today, we recorded the following information about you: Temperature Pulse Blood pressure Weight 98 degrees 62/minute 127/89 97.5 kg Height 1.651 m Oly Miranda Otilia 01/23/2018 2:37 PM Addendum Take prednisone with food in morning, acetaminophen ok to take while on steroids-but avoid ibuprofen-type meds while on steroids. Please contact me after completion of the prednisone to let me know if your joint pain improved __ Treatment Recommendations for Fibromyalgia developed by Dr. Stewart Ornelas M.D. 1. Medications: We recommend first trying a tricyclic antidepressant such as cyclobenzaprine (Flexeril) or amitriptyline (Elavil) in patients who have not yet had an adequate trial of this class of medications. We prefer Flexeril. Although Flexeril is generally marketed as a muscle relaxant, the similarities in chemical structure to the tricyclic antidepressants make it a very useful medication to treat pain and it can also be helpful for treating sleep disturbance. Begin Flexeril at a dose of 5 mg 2-3 hours before bedtime. Taking the medication in this fashion can help decrease morning grogginess. Increase the dose by 5 mg every week as tolerated until a total dose of 20 mg is achieved. Increased fluid intake may decrease the incidence of dry mouth and constipation. Patients should also be warned about potential weight gain. Amitriptyline (Elavil) can be used similarly in doses starting at 10 mg before bedtime, increasing by 10 mg weekly as tolerated up to 50 mg. Nortriptyline is also a good choice for many people. If maximum tolerated doses of trycyclics are not providing adequate pain relief, we recommend addition (if Flexeril/Elavil is helping) or substitution of a dual reuptake inhibitor such as Cymbalta (duloxetine) or Savella (milnacipran). Such drugs may be the drug of first choice in fibromyalgia patients with prominent depression or fatigue, as they often work well for these co-morbid symptoms (in addition to treating pain). Begin Cymbalta at 30 mg once daily with food. The dose can eventually be increased up to a total of 120 mg per day as tolerated, taken either as a single night time dose or b.i.d. Begin Savella at 25 mg, slowly increasing the dose as tolerated to a maximum of 100mg daily (e.g. 50 mg b.i.d.). Both drugs may initially cause nausea, palpitations, and other ?noradrenergic? side effects, so patients should be instructed that this may happen. These side effects usually resolve over time. Another class of medication with proven efficacy in fibromyalgia are the [id number] ligands, Neurontin (gabapentin) and Lyrica (pregabalin). This class of drug might be the best first choice for a fibromyalgia patient with prominent sleep problems. Lyrica is specifically approved for fibromyalgia, at doses of both 300 and 450mg. For Neurontin, doses typically in the range of 1500 ? 3000 mg are necessary to treat pain. Both drugs are better tolerated if most or even all of the dose is taken at bedtime (e.g. 150 mg in the morning and 300 mg at night for Lyrica, or 600 mg in the morning and 1200 mg at night for Neurontin). Some of the other medications that can be helpful in some fibromyalgia patients are higher doses of older SSRI?s such as Prozac, Zoloft, or Paxil. Dosages higher than those typically used for treating depression (e.g. 40 ? 50 mg of Prozac) are often necessary as it appears that at these higher dosages the important noradrenergic activity of these drugs becomes more prominent. Gamma hydroxybutyrate (particularly in those with significant sleep problems) and dopamine agonists (in those with co-morbid restless leg syndrome) can also be helpful in subsets of fibromyalgia patients. 2. Non-pharmacologic management: Activity/exercise. A mccullough aspect of fibromyalgia management is for the patient to appreciate that when their symptom(s) decrease in response to pharmacologic therapy, they must correspondingly increase their function. For example, when medication(s) diminishes pain, fatigue or other symptoms by 20%, this should lead to a 20% increase in activity/function. Such an increase in function and activity may result in a continuing reduction in complaints of pain, fatigue, etc. and may also diminish associated depressive and anxiety symptoms. We highly recommend patients make use of the [employer] website, (www.zlien.com), that provides a self-management program for people living with fibromyalgia. When tested in a trial, this was shown to be quite effective at improving symptoms. 3. Chronic Pain Rehabilitation Program: We urge patients to attend the Chronic Pain Rehabilitation Program here at [facility]. This program enables patients to be cared for by a multidisciplinary team of providers including experts in pain management, stress management training, physical and occupational therapy, vocational rehabilitation, nursing, nutrition, and psychotherapy. If you are interested, please call [phone] or to schedule an appointment for evaluation. Sarah Manley MD 01/23/2018 3:49 PM Signed On 01/23/2018, I had the pleasure of seeing Rody Malave at the [facility]. Rody Malave was referred by Dr. Domitila Rincon for an opinion and advice regarding joint and muscle pain. My findings and final recommendations will be communicated to the requesting health care provider by way of the shared medical record for internal providers or letter via the [employer] for external providers. Chief complaint: Joint and muscle pain HPI: To review, Rody Malave is a 37 year old female - For 4-5 yrs, noted onset of L>R elbow and L>R knee pain and swelling. - For 1 year, with pain to involve the shoulders, wrists, MCPs, PIPs and L ankle. Some areas of pain improve with activity including knuckles (back is worse). Worst time of day is morning - In September or October, had stress fracture of the L tibial plateau. Was advised to stay off leg. - With redness over cheeks and chest. Facial erythema constant, not worse with sun exposure but maybe worse with heat like a warm shower. - With hair loss from thyroid issues (diagnosed in ) - Had steroid course in spring for infection but doesn't recall if it helped joint pain - Today, reports diffuse pain - Takes ibuprofen 600mg/day, almost everyday for past 2 months. No improvement joint pain - No mouth sores or photosensitivity - To undergo evaluation for L knee fracture by [facility] (original doctor left) - Morning stiffness x30 minutes PAST MEDICAL HISTORY Diagnosis Date - Anxiety - Calcaneal spur of foot Lt - Depression on zoloft since 2003 - Endometriosis - Multiple thyroid nodules - Post-surgical hypothyroidism Osteoarthritis PAST SURGICAL HISTORY Procedure Laterality Date - ; THYROIDECTOMY TOTAL OR COMPLETE 08/16/12 [facility] - COLONOSCOP W/ OR W/O BRSH SPEC 09/10/14 Colonoscopy - EGD W/O OR W/BRUSH/WASH 07/04/2014 EGD - EXPLORATORY OF ABDOMEN 1998 Laparotomy, exp removal 2 cysts and endometrial implants - VAGINAL DELIVERY ONLY x3 ALLERGIES No Known Allergies MEDICATIONS: Current Outpatient Prescriptions: sertraline (ZOLOFT) 50 mg tablet Take 1 tablet by mouth once daily. levothyroxine (SYNTHROID) 150 mcg tablet Take 1 tablet by mouth once daily. With additional 1/2 tablet 2 days per week. Take on empty stomach. For Thyroid. multivitamin tablet Take 1 tablet by mouth once daily. DIGESTIVE PROBIOTIC 2 billion cell cpSP Take 1 capsule by mouth once daily. No current facility-administered medications for this visit. FAMILY HISTORY Problem Relation Age of Onset - Diabetes Mother - None Father - None Sister - None Sister SOCIAL HISTORY: Lives in [place]. 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 3 kids, 7 yo son (1st grade), 15 yo daughter (10th grade) and 17 yo son (12th). 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 REVIEW OF SYSTEMS: Bolded items below are present CONSTITUTIONAL: Negative for fever, fatigue, unintentional weight loss EYES: Negative for pain, redness, loss of vision, dryness ENM AND T: Negative for nose bleeds, hearing loss, mouth sores, dysphagia, dry mouth CV: Negative for chest pain, swelling in legs or feet RESPIRATORY: Negative for shortness of breath, pain with breathing, chronic cough, coughing up blood GI: Negative for GERD, nausea, diarrhea, bloody or black stool, abdominal pain GENITOURINARY: Negative for bloody urine, pain with urination MSK: Negative for joint pain, joint swelling, morning stiffness in joints, muscle weakness, back pain SKIN: Negative for rash, sun sensitive rashes, color changes of hands or feet in the cold, hair loss, nail changes NEURO: Negative for headaches, dizziness, paresthesia, memory loss, seizure HEME/LYMPH: Negative for swollen glands, anemia ALLERGIC/IMMUNOLOGIC: Negative for allergies (other than medications), increased susceptibility to infection OTHER CONDITIONS: DM, THYROID, HTN PHYSICAL EXAM: VITALS: Blood pressure 127/89, pulse 62, temperature 36.7 ?C (98 ?F), temperature source Oral, height 165.1 cm (5' 5), weight 97.5 kg (215 lb). CONSTITUTIONAL: Well-appearing, in NAD. SKIN: Nonspecific facial erythema. No alopecia. No sclerodactyly, calcinosis, telangiectasias, digitial ulcers, or skin thickening. EYES: No scleral icterus or conjunctivitis, PERRLA. ENT and Mouth: External ears normal. Nares normal. Mucous membranes normal. Oropharynx normal. No oral ulcers. NECK: No lymphadenopathy, full range of motion RESPIRATORY: Normal breath sounds, clear to auscultation. CARDIOVASCULAR: Regular rate and rhythm, no murmurs or rubs GASTROENTEROLOGY: Normal bowel sounds. Abdomen is soft and non-tender. EXTREMITIES/LYMPH: No edema bilaterally NEURO: Awake, alert and oriented, Normal gait, Strength 5/5 in upper and lower extremity muscles bilaterally, Reflexes symmetrical. MUSCULOSKELETAL: JOINT APPEARANCE: No erythema or warmth of any upper or lower extremity joint. RANGE OF MOTION: Able to fully close fists and curl fingers bilaterally. SWOLLEN JOINTS/SYNOVITIS: No synovitis of any joint. TENDER JOINTS: Tenderness to palpation of the L shoulder, L elbow, bilateral wrists, 2nd-5th MCPs, 2nd-5th PIPs, L knee, L ankle, and L MTPs Widespread Pain Index: 8 (0-19) Symptoms Severity Scale: 7 (0-12) WPI>7 and SS Scale>5 OR WPI 3-6 and SS Scale >9 consistent with fibromyalgia LABORATORY: Component Latest Ref Rng AND Units 08/06/2015 12/07/2016 WBC 3.70 - 11.00 k/uL 4.29 RBC 3.90 - 5.20 m/uL 4.73 Hemoglobin 11.5 - 15.5 g/dL 13.2 Platelet Count 150 - 400 k/uL 269 Alkaline Phosphatase 40 - 150 U/L 48 AST 7 - 40 U/L 22 Glucose 74 - 99 mg/dL 80 89 BUN 7 - 21 mg/dL 10 10 Creatinine 0.58 - 0.96 mg/dL 0.93 0.90 Sodium 136 - 144 mmol/L 140 141 Potassium 3.7 - 5.1 mmol/L 4.5 4.3 Chloride 97 - 105 mmol/L 103 103 CO2 22 - 30 mmol/L 25 25 Anion Gap 9 - 18 mmol/L 12 13 ALT 0 - 45 U/L 13 eGFR- >60 >60 eGFR-All Other Races . >60 >60 Component Latest Ref Rng AND Units 12/07/2017 Sm Antibody <1.0 AI <0.2 MONITORING SPECIALIST Antibody <1.0 AI 0.6 SSA Antibody <1.0 AI <0.2 SSB Antibody <1.0 AI <0.2 Centromere Ab <1.0 AI <0.2 Scleroderma Ab, IgG <1.0 AI <0.2 Lexy 1 Antibody <1.0 AI <0.2 Ribosomal MONITORING SPECIALIST <1.0 AI <0.2 Chromatin Antibody <1.0 AI <0.2 DIMITRI Negative Positive (A) DIMITRI Titer Negative 1:160 (A) DIMITRI Pattern Atypical speckled Rheumatoid Factor <16 IU/mL 12 WSR 0 - 20 mm/hr 2 CK 42 - 196 U/L 98 UltraSens C-Reactive Protein <3.1 mg/L 0.6 CCP Antibody, IgG <20 Units <15 Anti-SSA <1.0 AI <0.2 Anti-SSB <1.0 AI <0.2 DNA Antibody w/Confirmation <30 IU/mL <12 STUDIES: *November MRI L ankle- posterior tibialis tendinosis with tenosynovitis, proximal plantar fasciitis *September xray L knee- IMPRESSION: ?Findings are suggestive of mild degenerative changes of the left knee. IMPRESSION and PLAN: 1. Joint pain: Small joint pain (wrists, MCPs, PIPs) with some inflammatory features per history, making autoimmune or inflammatory arthritis likely. Explained that current pain is likely multifactorial with some component of pain from fibromyalgia. Advised further evaluation for inflammatory arthritis via diagnostic prednisone trial-and that prednisone will unlikely help all areas of pain but should focus on wrists and knuckles. - Explained possible diagnosis - Attempt a diagnostic trial of prednisone 30mg daily x5 days to see if any improvement in joint pain. If there is a significant improvement, this could suggest an inflammatory component of pain which may suggest a diagnosis of inflammatory arthritis. Explained potential side effects including increased appetite, upset stomach (advised taking with food), insomnia (advised taking in morning), increased infection risk, elevated blood glucose levels, elevated blood pressure, and to avoid NSAIDs while on prednisone, tylenol prn ok. Advised to very closely monitor the joint symptoms and contact us to report status upon steroid completion. - Hold ibuprofen for prednisone as above - Advised starting HCQ 200mg bid if improvement with prednisone. Potential side effects were explained, including GI upset, headache, and retinal toxicity leading to blindness. Advised that routine ophthalmology follow-up will be required to monitor for potential toxicity at baseline (ie within 2-3 months of starting) and at least annually thereafter. Literature about Plaquenil was provided for review. - Check labs. Notify of results via [employer] - Discussed anti-inflammatory diet (found that joint pain improved with vegan diet) 2. Positive DIMITRI: Explained that a general inflammatory arthritis is likely. Has facial erythema and joint pain-see above- in the setting of +DIMITRI and Maykel's, but lupus is not clearly present. Explained that an abnormal DIMITRI is not definitively diagnostic of any particular condition and must be interpreted according to the clinical context. - Evaluation and management as above 3. Fibromyalgia: Meets criteria based on WPI/SS scale score as above. - Explained diagnosis and provided literature on fibromyalgia for review - Advised aerobic exercise - Please refer to the fibromyalgia treatment guidelines as detailed below for further management by PCP 4. General health maintenance: - Advised to continue follow-up with PCP for routine health maintenance and malignancy screening Follow-up as needed pending evaluation for #1. Patient was instructed to call if any new or worsening symptoms. Thank you for allowing me to participate in the care of your patient. Sarah Manley MD Treatment Recommendations for Fibromyalgia developed by Dr. Stewart Ornelas M.D. 1. Medications: We recommend first trying a tricyclic antidepressant such as cyclobenzaprine (Flexeril) or amitriptyline (Elavil) in patients who have not yet had an adequate trial of this class of medications. We prefer Flexeril. Although Flexeril is generally marketed as a muscle relaxant, the similarities in chemical structure to the tricyclic antidepressants make it a very useful medication to treat pain and it can also be helpful for treating sleep disturbance. Begin Flexeril at a dose of 5 mg 2-3 hours before bedtime. Taking the medication in this fashion can help decrease morning grogginess. Increase the dose by 5 mg every week as tolerated until a total dose of 20 mg is achieved. Increased fluid intake may decrease the incidence of dry mouth and constipation. Patients should also be warned about potential weight gain. Amitriptyline (Elavil) can be used similarly in doses starting at 10 mg before bedtime, increasing by 10 mg weekly as tolerated up to 50 mg. Nortriptyline is also a good choice for many people. If maximum tolerated doses of trycyclics are not providing adequate pain relief, we recommend addition (if Flexeril/Elavil is helping) or substitution of a dual reuptake inhibitor such as Cymbalta (duloxetine) or Savella (milnacipran). Such drugs may be the drug of first choice in fibromyalgia patients with prominent depression or fatigue, as they often work well for these co-morbid symptoms (in addition to treating pain). Begin Cymbalta at 30 mg once daily with food. The dose can eventually be increased up to a total of 120 mg per day as tolerated, taken either as a single night time dose or b.i.d. Begin Savella at 25 mg, slowly increasing the dose as tolerated to a maximum of 100mg daily (e.g. 50 mg b.i.d.). Both drugs may initially cause nausea, palpitations, and other ?noradrenergic? side effects, so patients should be instructed that this may happen. These side effects usually resolve over time. Another class of medication with proven efficacy in fibromyalgia are the emwur-0-xkgtr ligands, Neurontin (gabapentin) and Lyrica (pregabalin). This class of drug might be the best first choice for a fibromyalgia patient with prominent sleep problems. Lyrica is specifically approved for fibromyalgia, at doses of both 300 and 450mg. For Neurontin, doses typically in the range of 1500 ? 3000 mg are necessary to treat pain. Both drugs are better tolerated if most or even all of the dose is taken at bedtime (e.g. 150 mg in the morning and 300 mg at night for Lyrica, or 600 mg in the morning and 1200 mg at night for Neurontin). Some of the other medications that can be helpful in some fibromyalgia patients are higher doses of older SSRI?s such as Prozac, Zoloft, or Paxil. Dosages higher than those typically used for treating depression (e.g. 40 ? 50 mg of Prozac) are often necessary as it appears that at these higher dosages the important noradrenergic activity of these drugs becomes more prominent. Gamma hydroxybutyrate (particularly in those with significant sleep problems) and dopamine agonists (in those with co-morbid restless leg syndrome) can also be helpful in subsets of fibromyalgia patients. 2. Non-pharmacologic management: Activity/exercise. A mccullough aspect of fibromyalgia management is for the patient to appreciate that when their symptom(s) decrease in response to pharmacologic therapy, they must correspondingly increase their function. For example, when medication(s) diminishes pain, fatigue or other symptoms by 20%, this should lead to a 20% increase in activity/function. Such an increase in function and activity may result in a continuing reduction in complaints of pain, fatigue, etc. and may also diminish associated depressive and anxiety symptoms. We highly recommend patients make use of the [employer] website, (www.zlien.[employer].com), that provides a self-management program for people living with fibromyalgia. When tested in a trial, this was shown to be quite effective at improving symptoms. 3. Chronic Pain Rehabilitation Program: We urge patients to attend the Chronic Pain Rehabilitation Program here at [facility]. This program enables patients to be cared for by a multidisciplinary team of providers including experts in pain management, stress management training, physical and occupational therapy, vocational rehabilitation, nursing, nutrition, and psychotherapy. If you are interested, please call [phone] or to schedule an appointment for evaluation. Referring Provider: DOMITILA RINCON [[id number]] Allergies As of Date: 01/23/2018 (No Known Allergies) Date Reviewed: 01/23/2018 Reviewed by: Oly Miranda Ma - Fully Assessed Reason for Visit: New Patient [172] Primary Visit Diagnosis:Pain in joint, multiple sites [M25.50] Other Visit Diagnoses:Myalgia [M79.1] Positive DIMITRI (antinuclear antibody) [R76.8] Order(s):HEP REMOTE PANEL BL [SQHREMOP] Order #: [id number] FUTURE HEPATIC FUNCTION PNL [SQHFP] Order #: [id number] FUTURE CBC [SQCBC] Order #: [id number] FUTURE CREATININE BLD [SQCRET] Order #: [id number] FUTURE predniSONE (DELTASONE) 20 mg tabletTake 30mg (1.5 tablets) once daily x5 days, then stopDisp: 8 tabletRfl: 0 C4 COMPLEMENT BLD [SEP3NZKC] Order #: [id number] FUTURE C3 COMPLEMENT BLD [TNL0HWAC] Order #: [id number] FUTURE Prescriptions as of 01/23/2018 Sig: SERTRALINE 50 MG TABLET Take 1 tablet by mouth once d* LEVOTHYROXINE 150 MCG TABLET Take 1 tablet by mouth once d* MULTIVITAMIN TABLET Take 1 tablet by mouth once d* DIGESTIVE PROBIOTIC 2 BILLION* Take 1 capsule by mouth once * PREDNISONE 20 MG TABLET Take 30mg (1.5 tablets) once * Problem List As Of Date 01/23/2018 Noted Resolved CALCANEAL SPUR [M77.30] INVALID FOR* GENERALIZED ANXIETY DIS [F41.1] INVALID FOR* More... 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.*INVALID FOR* Other instructions from your clinician: Take prednisone with food in morning, acetaminophen ok to take while on steroids-but avoid ibuprofen-type meds while on steroids. Please contact me after completion of the prednisone to let me know if your joint pain improved __ Treatment Recommendations for Fibromyalgia developed by Dr. Stewart Ornelas M.D. 1. Medications: We recommend first trying a tricyclic antidepressant such as cyclobenzaprine (Flexeril) or amitriptyline (Elavil) in patients who have not yet had an adequate trial of this class of medications. We prefer Flexeril. Although Flexeril is generally marketed as a muscle relaxant, the similarities in chemical structure to the tricyclic antidepressants make it a very useful medication to treat pain and it can also be helpful for treating sleep disturbance. Begin Flexeril at a dose of 5 mg 2-3 hours before bedtime. Taking the medication in this fashion can help decrease morning grogginess. Increase the dose by 5 mg every week as tolerated until a total dose of 20 mg is achieved. Increased fluid intake may decrease the incidence of dry mouth and constipation. Patients should also be warned about potential weight gain. Amitriptyline (Elavil) can be used similarly in doses starting at 10 mg before bedtime, increasing by 10 mg weekly as tolerated up to 50 mg. Nortriptyline is also a good choice for many people. If maximum tolerated doses of trycyclics are not providing adequate pain relief, we recommend addition (if Flexeril/Elavil is helping) or substitution of a dual reuptake inhibitor such as Cymbalta (duloxetine) or Savella (milnacipran). Such drugs may be the drug of first choice in fibromyalgia patients with prominent depression or fatigue, as they often work well for these co-morbid symptoms (in addition to treating pain). Begin Cymbalta at 30 mg once daily with food. The dose can eventually be increased up to a total of 120 mg per day as tolerated, taken either as a single night time dose or b.i.d. Begin Savella at 25 mg, slowly increasing the dose as tolerated to a maximum of 100mg daily (e.g. 50 mg b.i.d.). Both drugs may initially cause nausea, palpitations, and other ?noradrenergic? side effects, so patients should be instructed that this may happen. These side effects usually resolve over time. Another class of medication with proven efficacy in fibromyalgia are the xftbo-3-kgerk ligands, Neurontin (gabapentin) and Lyrica (pregabalin). This class of drug might be the best first choice for a fibromyalgia patient with prominent sleep problems. Lyrica is specifically approved for fibromyalgia, at doses of both 300 and 450mg. For Neurontin, doses typically in the range of 1500 ? 3000 mg are necessary to treat pain. Both drugs are better tolerated if most or even all of the dose is taken at bedtime (e.g. 150 mg in the morning and 300 mg at night for Lyrica, or 600 mg in the morning and 1200 mg at night for Neurontin). Some of the other medications that can be helpful in some fibromyalgia patients are higher doses of older SSRI?s such as Prozac, Zoloft, or Paxil. Dosages higher than those typically used for treating depression (e.g. 40 ? 50 mg of Prozac) are often necessary as it appears that at these higher dosages the important noradrenergic activity of these drugs becomes more prominent. Gamma hydroxybutyrate (particularly in those with significant sleep problems) and dopamine agonists (in those with co-morbid restless leg syndrome) can also be helpful in subsets of fibromyalgia patients. 2. Non-pharmacologic management: Activity/exercise. A mccullough aspect of fibromyalgia management is for the patient to appreciate that when their symptom(s) decrease in response to pharmacologic therapy, they must correspondingly increase their function. For example, when medication(s) diminishes pain, fatigue or other symptoms by 20%, this should lead to a 20% increase in activity/function. Such an increase in function and activity may result in a continuing reduction in complaints of pain, fatigue, etc. and may also diminish associated depressive and anxiety symptoms. We highly recommend patients make use of the [employer] website, (www.zlien.com), that provides a self-management program for people living with fibromyalgia. When tested in a trial, this was shown to be quite effective at improving symptoms. 3. Chronic Pain Rehabilitation Program: We urge patients to attend the Chronic Pain Rehabilitation Program here at [facility]. This program enables patients to be cared for by a multidisciplinary team of providers including experts in pain management, stress management training, physical and occupational therapy, vocational rehabilitation, nursing, nutrition, and psychotherapy. If you are interested, please call [phone] or to schedule an appointment for evaluation. Prescriptions ordered this encounter Disp Refills Start End PREDNISONE 20 MG TABLET 8 ta* 0 01/23/2018 Sig: Take 30mg (1.5 tablets) once daily x5 days, then stop Disposition: Return for 3 months [employer], 6 months me. Follow-up and Disposition History Recorded Encounter Status:Closed by SARAH MANLEY MD on 01/23/18 ORTHOPEDIC VISIT Observed: 01/11/2018 Status: F Source: [facility] 9:37 AM [facility] Orthopa[facility]ics AND Sports Medicine [address] [place] [id number] OFFICE VISIT Date of Service: 01/04/18 MR#: [id number] Acct: [id number] Name: RODY MALAVE Rep #: [id number] : 1980 Provider: Elijah Rosenthal DO Age/Sex: 37/F Location: [facility] Status: Signed Intake Intake Visit Reasons: LEFT KNEE Is patient in pain?: Yes Allergies No Known Allergies Allergy (Verified 01/04/18 12:16) Medications levothyroxine 125 mcg capsule PO 09/15/17 [History Confirmed 09/15/17] multivitamin tablet 1 tab PO QAM 09/15/17 [History Confirmed 09/15/17] sertraline 50 mg tablet 50 mg PO QDAY 09/15/17 [History Confirmed 09/15/17] PFSH Medical History Depression with anxiety (Acute) Hypothyroidism (Chronic) Surgical History H/O thyroidectomy (Inactive) S/P removal of ovarian cyst (Inactive) Family History Mother Hypertension Father Hypertension Social History Smoking Status: Never smoker HPI LEFT KNEE: Details: RODY MALAVE is a 37 year old F here today for a continued left knee pain. She continues to have popping and clicking over her lateral knee. Her pain increases with all activities and ambulation. Denies numbness, tingling or other associated symptoms. She would like to discuss her options. ROS Const Reports system reviewed and no additional complaints, except as docu Eyes Reports system reviewed and no additional complaints, except as docu ENT Reports system reviewed and no additional complaints, except as docu Card Reports system reviewed and no additional complaints, except as docu Resp Reports system reviewed and no additional complaints, except as docu GI Reports system reviewed and no additional complaints, except as docu Reports system reviewed and no additional complaints, except as docu Musc Reports joint pain, Reports joint swelling Skin/Breast Reports system reviewed and no additional complaints, except as docu Neuro Yes system reviewed and no additional complaints, except as docu Psych Reports system reviewed and no additional complaints, except as docu Endo Reports system reviewed and no additional complaints, except as docu Ortho Exam Right Knee Skin/Wound: Yes CDI Contralateral Normal: Yes Swelling: No Homans Sign: No Knee ROM: Yes ROM-Extension -20 to 0, Yes ROM-Passive Flexion 0-140, Yes ROM-Flexion 0-140, Yes ROM-Passive Extension -10 to 0 Quad Atrophy: No Stability: NML: Anterior Drawer, NML: Duglas, NML: Posterior Drawer, NML: Valgus 0, NML: Valgus 30, NML: Varus 0, NML: Varus 30, NML: Dial 90, NML: Dial 30 Popliteal Adenopathy: No Patella Translation: 1 Apprehension with Lateral Translation: No Patellar Tilt Normal: Yes Patella Grind: No Left Knee Skin/Wound: Yes CDI Contralateral Normal: Yes Swelling: No Homans Sign: No Knee ROM: Yes ROM-Extension -20 to 0, Yes ROM-Flexion 0-140, Yes ROM-Passive Extension -10 to 0, Yes ROM-Passive Flexion 0-140 Examination: Yes Lat jt line tenderness Quad Atrophy: No Stability: NML: Anterior Drawer, NML: Duglas, NML: Posterior Drawer, NML: Valgus 0, NML: Valgus 30, NML: Varus 0, NML: Varus 30, NML: Dial 90, NML: Dial 30 Popliteal Adenopathy: No Patella Translation: 1 Apprehension with Lateral Translation: No Patellar Tilt Normal: Yes Patella Grind: No KNEE: Patient is alert and oriented 3 no acute distress. Appropriate eye contact and affect. Walks an antalgic gait with a cam boot to the left foot and ankle. Moves her knee through appropriate range of motion but continues to be tender palpation across that proximal tibia greatest across the lateral plateau. No obvious effusion remains ligamentously stable no adenopathy. Gross motor strength out of 5. X-rays: Left knee-evaluated by myself with the patient-patient shows no obvious radiographic evidence at this point for advancement of her stress fracture that was identified by MRI. Assessment AND Plan Problems 1. Stress fracture of left tibia with routine healing, subsequent encounter M84.472D Plan Assessment: Left knee proximal tibia stress fracture versus stress reaction left knee pain. Plan: This point time the patient is going to have surgery to her left foot and ankle and will be immobilized for period of time and limited weightbearing status. I told the patient that in terms of her proximal tibia primary pain that perhaps waiting until after the surgical intervention to the foot and ankle to see if her knee will respond to limit weightbearing status and heal on its own. If the patient were to fail conservative measures she continues with nonweightbearing status which is been going on for extended period of time versus consideration for micro internal fixation with calcium phosphate cement. Patient will follow-up with my partner for possible surgical intervention. I did tell the patient that there is a possibility of a joint combination of the foot and ankle procedure and the knee procedure however that would be based on availability of my partner for procedure and whether or not there is agreement with the treating foot and ankle surgeon. I will leave a logistics to the patient should she try to have both things done at the same time however my recommendation is waiting to see if she will gain any relief from the extent weightbearing status or limited weightbearing status after her foot neck procedure. Any issues return. Orders Orders: Coding Level of Care Code Off vis,est,level 4 Diagnoses Stress fracture of left tibia with routine healing, subsequent encounter M84.362D Encounter type: subsequent encounter Laterality: left Fracture healing: with routine healing 01/11/18 0937 <Electronically signed by Elijah Rosenthal DO> Date Elijah Rosenthal DO Cosigner Signature: Date (if applicable) CC: KNEE 4 OR MORE Observed: 01/04/2018 Status: F Source: [place] VIEWS 10:30 AM [facility] REPOSITORY [facility] Imaging Services [address] [place] [id number] Knee 4 or More Views MR#: [id number] Acct: [id number] Name: RODY MALAVE Rep #: [id number] : 1980 F 37 From: Fantasma Pruitt MD PCP: Domitila Rincon Status: REG CLI Study: Knee 4 or More Views Date of Exam: 01/04/18 Exam# [id number] Ordering Dr: Elijah Rosenthal DO STUDY: X-RAY - LEFT KNEE REASON FOR EXAM: Female, 37 years old. Stress fracture. TECHNIQUE: 4 view(s) of the knee. COMPARISON: None. FINDINGS: Normal visualized distal femur. Normal visualized proximal tibia and fibula. Normal proximal tibiofibular articulation. There is no demonstrated fracture. Normal medial femorotibial compartment. Normal lateral femorotibial compartment. Normal patellofemoral articulation. There is no demonstrated joint effusion. The soft tissue structures are unremarkable. RAD/Knee 4 or More Views IMPRESSION: Normal x-ray examination of the knee. Electronically Signed: Fantasma Pruitt MD at 17:10 EDT , Service support , CC: Domitila Rincon; Elijah Rosenthal DO Collarette Separator: Signed ORTHOPEDIC VISIT Observed: 12/11/2017 Status: F Source: [facility] REPORT 6:03 PM [facility] REPOSITORY [facility] Orthopaedics AND Sports Medicine [address] [place] [address] OFFICE VISIT Date of Service: 11/29/17 MR#: [id number] Acct: [id number] Name: RODY MALAVE Rep #: [id number] : 1980 Provider: Elijah Rosenthal DO Age/Sex: 37/F Location: [facility] Status: Signed Intake Intake Visit Reasons: LEFT KNEE Is patient in pain?: Yes Allergies No Known Allergies Allergy (Verified 11/29/17 11:50) Medications levothyroxine 125 mcg capsule PO 09/15/17 [History Confirmed 09/15/17] multivitamin tablet 1 tab PO QAM 09/15/17 [History Confirmed 09/15/17] sertraline 50 mg tablet 50 mg PO QDAY 09/15/17 [History Confirmed 09/15/17] PFSH Medical History Depression with anxiety (Acute) Hypothyroidism (Chronic) Surgical History H/O thyroidectomy (Inactive) S/P removal of ovarian cyst (Inactive) Family History Mother Hypertension Father Hypertension Social History Smoking Status: Never smoker HPI LEFT KNEE: Details: RODY MALAVE is a 37 year old F here today for a followup after her left knee MRI. She states that she continues to have popping and clicking over her lateral knee. She notes that her knee pain is worsening. She has increased pain with ambulation and all activities. Patients MRI is here for review. ROS Const Reports system reviewed and no additional complaints, except as docu Eyes Reports system reviewed and no additional complaints, except as docu ENT Reports system reviewed and no additional complaints, except as docu Card Reports system reviewed and no additional complaints, except as docu Resp Reports system reviewed and no additional complaints, except as docu GI Reports system reviewed and no additional complaints, except as docu Reports system reviewed and no additional complaints, except as docu Musc Reports joint pain, Reports stiffness, Reports limited joint movement Skin/Breast Reports system reviewed and no additional complaints, except as docu Neuro Yes system reviewed and no additional complaints, except as docu Psych Reports system reviewed and no additional complaints, except as docu Endo Reports system reviewed and no additional complaints, except as docu Ortho Exam Right Knee Patella Translation: 1 Left Knee Contralateral Normal: Yes Swelling: Yes Homans Sign: No Knee ROM: Yes ROM-Extension -20 to 0, Yes ROM-Flexion 0-140, Yes ROM-Passive Extension -10 to 0, Yes ROM-Passive Flexion 0-140 Examination: Yes Lat jt line tenderness, No med jt line tenderness, No TTP inf pole patella, No Crepitus, No Pain with flexion, No Ashley's Test, No Dial at 90, No Dial at 60, No Duck Walk Quad Atrophy: No Stability: NML: Anterior Drawer, NML: Duglas, NML: Posterior Drawer, NML: Valgus 0, NML: Valgus 30, NML: Varus 0, NML: Varus 30, NML: Dial 90, NML: Dial 30 Popliteal Adenopathy: No Patella Translation: 1 Apprehension with Lateral Translation: No Patellar Tilt Normal: Yes Patella Grind: No KNEE: Alert oriented 3 no acute distress. Appropriate eye contact and affect. Otherwise intact from L1-S1 distributions. She has positive pulses. EHL anterior gastrocsoleus peroneals quads hamstrings 5 out of 5. Patient remains tender palpation across the lateral joint line across the lateral tibial plateau. She continues to walk with an antalgic gait. MRI: Evaluated by myself the patient-patient shows a stress fracture versus stress reaction to the lateral tibial plateau with obvious edema into the plateau. There is no other meniscal pathology or intra-articular abnormalities could be appreciated. Assessment AND Plan 1. Stress fracture of left tibia, initial encounter M84.362A Plan Assessment: Left proximal tibia stress fracture and associated left knee pain. Plan: At this point time I discussed with patient the MRI findings of the stress reaction versus stress fracture to the lateral aspect of the tibial plateau. I recommendation at this point time is for the patient to be touchdown weightbearing on crutches and I will provide her with prescription and send her over to [facility] in order to get the get that prescription filled. Recommend the patient continued multivitamin calcium and vitamin D supplementation. The patient has no known history of where she can think there was a true insult to the knee which is always concerning perhaps this is a component of osteopenic changes. My recommendation is for a bone mineral density testing to be sure that were not missing some underlying pathology. I told the patient that she will not be getting improved with simple protected weightbearing that my recommendation would be for micro-internal fixation of the tibial plateau with calcium phosphate cement. For now continue with conservative care for an additional 4-6 weeks. I will get new x-rays of the knee to see if there is any radiographic changes as this is an MRI finding. Patient agrees with plan. Coding Level of Care Code Off vis,est,level 4 Diagnoses Stress fracture of left tibia, initial encounter M84.362A Laterality: left Encounter type: initial encounter 12/11/17 1803 <Electronically signed by Elijah Rosenthal DO> Date Elijah Rosenthal DO Cosigner Signature: Date (if applicable) CC: COMP METABOLIC PANEL Collected: 12/07/2017 Status: F Source: [facility] 2:45 PM [facility] REPOS[facility] TYPE CODE TESTS RESULT OUT OF REFERENCE UNITS [facility] LAB TP 6.3-8.0 g/dL Protein, Total 6.8 LAB ALB 3.9-4.9 g/dL Albumin 4.2 LAB CA 8.5-10.2 mg/dL Calcium, Total 9.3 LAB TBIL 0.2-1.3 mg/dL Bilirubin, Total 0.4 LAB ALKP 32-117 U/L Alkaline Phosphatase 39 LAB AST 13-35 U/L AST 17 LAB GLU 74-99 mg/dL Glucose 94 Result Comment: The [place] Diabetes Association (ADA) provides guidance for cutoff values for fasting glucose and random glucose. The ADA defines fasting as no caloric intake for at least 8 hours. Fas ting plasma glucose results between 100 to 125 mg/dL indicate increased risk for diabetes (prediabetes). Fasting plasma glucose results greater than or equal to 126 mg/dL meet the criteria for diagnosis of diabetes. In the absence of unequivocal hyperglycemia, results should be confirmed by repeat testing. In a patient with classic symptoms of hyperglycemia or hyperglycemic crisis, random plasma glucose results greater than or equal to 200 mg/dL meet the criteria for diagnosis of diabetes. Reference: Standards of Medical Care in Diabetes 2016, [place] [employer] Association. Diabetes Care. 2016.39(Suppl 1). LAB BUN 7-21 mg/dL BUN 11 LAB CRET 0.58-0.96 mg/dL Creatinine 0.85 LAB NA 136-144 mmol/L Sodium 139 LAB K 3.7-5.1 mmol/L Potassium 4.1 LAB CL 97-105 mmol/L Chloride 102 LAB CO2 22-30 mmol/L CO2 27 LAB AGAP 9-18 mmol/L Anion Gap 10 LAB ALT 7-38 U/L ALT 11 LAB GFRAA eGFR- Amer. >60 LAB GFRNAA . eGFR-All Other Races >60 Result Comment: eGFR (Estimated GFR) Units of measure: mL/min/1.73 meters squared eGFR is derived from the reexpressed MDRD Study equation using the following parameters: serum creatinine, age, gender and race. The creatinine assay has been calibrated to be traceable to IDMS. An eGFR <60 mL/min/1.73m2 for >3 months is consistent with chronic kidney disease. Refer to KDOQI guidelines for clinical interpretation. In patients with unstable renal function, e.g. those with acute kidney injury, the eGFR may not accurately reflect actual GFR. Performed By: #### CMP #### [facility] [address] [place] [address] #### CK, HSCRP, RF, TSH, WSR, ANTSSA, SSB, ANAIFR, ANABLL, CCP, ENAID, DNA #### [place] [address] CK Collected: 12/07/2017 Status: F Source: [facility] 2:45 PM MAIN [facility] REPOSITORY TYPE CODE TESTS RESULT OUT OF RANGE REFERENCE UNITS LAB CK 42-196 U/L CK 98 Result Comment: Please note the updated, gender-specific reference range for this test (effective 06/30/2016). Performed By: #### CMP #### [place] [phone] #### CK, HSCRP, RF, TSH, WSR, ANTSSA, SSB, ANAIFR, ANABLL, CCP, ENAID, DNA #### [place] [address] ULTRA-SENSITIVE CRP Collected: 12/07/2017 Status: F Source: [place] 2:45 PM [facility] REPOSITORY TYPE CODE TESTS RESULT OUT OF REFERENCE UNITS RANGE LAB CRPUS <3.1 mg/L UltraSens 0.6 C-ReacProt Result Comment: (NOTE) hsCRP < 1.0 mg/L, relative risk is low hsCRP 1.0-3.0 mg/L, relative risk is average hsCRP > 3.0 mg/L, relative risk is high Reference: Rhea TA, Eduardo GA, Julien RW, et al. Markers of Inflammation and Cardiovascular Disease. Application to Clinical and Public Health Practice. A Statement for Healthcare Professionals From the Centers for Disease Control and Prevention and the [place] [employer]. Circulation 2003;107:499-511. Performed By: #### CMP #### [address] [phone] #### CK, HSCRP, RF, TSH, WSR, ANTSSA, SSB, ANAIFR, ANABLL, CCP, ENAID, DNA #### [address] [id number] RHEUMATOID FACTOR Collected: 12/07/2017 Status: F Source: [place] 2:45 PM [facility] REPOSITORY TYPE CODE TESTS RESULT OUT OF REFERENCE UNITS RANGE LAB RF <16 IU/mL Rheumatoid 12 Factor Performed By: #### CMP #### [address] [phone] #### CK, HSCRP, RF, TSH, WSR, ANTSSA, SSB, ANAIFR, ANABLL, CCP, ENAID, DNA #### [place] [address] TSH Collected: 12/07/2017 Status: F Source: [place] 2:45 PM [facility] REPOSITORY TYPE CODE TESTS RESULT OUT OF RANGE REFERENCE UNITS LAB TSH 0.400-5.500 uU/mL High TSH 19.510 Result Comment: If the patient is , TSH reference range varies by gestational period: First Trimester 0.100-2.500 uU/mL Second Trimester 0.200-3.000 uU/mL Third Trimester 0.300-3.000 uU/mL References: 1. Nam L, Carlos M, Julien EK, et al. Management of Thyroid Dysfunction during and : An Endocrine Society Clinical Practice Guideline. J Clin Endocrinol Metab, 2012:97:0513-2921. 2. Abe HAMILTON. Overview of thyroid disease in . UpToDate. 2016. Accessed on January 01, 2016. Performed By: #### CMP #### [place] [phone] #### CK, HSCRP, RF, TSH, WSR, ANTSSA, SSB, ANAIFR, ANABLL, CCP, ENAID, DNA #### [place] [address] SED RATE WESTERGREN Collected: 12/07/2017 Status: F Source: [place] 2:45 PM [facility] REPOSITORY TYPE CODE TESTS RESULT OUT OF REFERENCE UNITS RANGE LAB WSR 0-20 mm/hr Sed Rate Westergren 2 Performed By: #### CMP #### [address] [phone] #### CK, HSCRP, RF, TSH, WSR, ANTSSA, SSB, ANAIFR, ANABLL, CCP, ENAID, DNA #### [place] [address] SSA ANTIBODY Collected: 12/07/2017 Status: F Source: [place] 2:45 [facility] REPOSITORY TYPE CODE TESTS RESULT OUT OF REFERENCE UNITS RANGE LAB ANTSSA <1.0 AI SSA Antibody <0.2 Result Comment: NEGATIVE Negative: <1.0 AI Positive: >0.9 AI Performed By: #### CMP #### [place] [phone] #### CK, HSCRP, RF, TSH, WSR, ANTSSA, SSB, ANAIFR, ANABLL, CCP, ENAID, DNA #### [place] [phone] SSB ANTIBODY Collected: 12/07/2017 Status: F Source: [place] 2:45 [facility] REPOSITORY TYPE CODE TESTS RESULT OUT OF REFERENCE UNITS RANGE LAB SSB <1.0 AI SSB Antibody <0.2 Result Comment: NEGATIVE Negative: <1.0 AI Positive: >0.9 AI Performed By: #### CMP #### [address] [phone] #### CK, HSCRP, RF, TSH, WSR, ANTSSA, SSB, ANAIFR, ANABLL, CCP, ENAID, DNA #### [place] [phone] DIMITRI BY IFA W/REFLEX Collected: 12/07/2017 Status: F Source: [place] 2:[address] [place] [address] REPOSITORY TYPE CODE TESTS RESULT OUT OF RANGE REFERENCE UNITS LAB ANASC Negative Abnormal Alert DIMITRI Positive Result Comment: Normal range : negative at <1:80 serum dilution. LAB LEON Negative Abnormal 1:160 Alert DIMITRI Titer LAB ANAP DIMITRI Pattern Atypical speckled Performed By: #### CMP #### [place] [phone] #### CK, HSCRP, RF, TSH, WSR, ANTSSA, SSB, ANAIFR, ANABLL, CCP, ENAID, DNA #### [place] [address] DIMITRI IFA TITER BILL Collected: 12/07/2017 Status: F Source: [place] 2:45 [facility] REPOSITORY TYPE CODE TESTS RESULT OUT OF REFERENCE UNITS RANGE LAB ANABLL DIMITRI Billed for IFA Titer services Bill performed Performed By: #### CMP #### [address] [phone] #### CK, HSCRP, RF, TSH, WSR, ANTSSA, SSB, ANAIFR, ANABLL, CCP, ENAID, DNA #### [place] [address] CCP ANTIBODY, IGG Collected: 12/07/2017 Status: F Source: [place] [facility] 2:[address] [place] [address] REPOSITORY TYPE CODE TESTS RESULT OUT OF REFERENCE UNITS RANGE LAB CCPABG <20 Units CCP <15 Antibody, IgG Result Comment: < 20 units: Negative 20-39 units: Weak Positive 40-59 units: Moderate Positive > 60 units: Strong Positive The following results were obtained with the [employer] QUANTA Lite CCP3 IgG AJAY. Anti-CCP values obtained with different manufacturers' assay methods may not be used interchangeably. The magnitude of the reported IgG levels cannot be correlated to an endpoint titer. Performed By: #### CMP #### [place] [phone] #### CK, HSCRP, RF, TSH, WSR, ANTSSA, SSB, ANAIFR, ANABLL, CCP, ENAID, DNA #### [place] [address] NIKI ANTIBODY PANEL Collected: 12/07/2017 Status: F Source: [place] 2:45 [facility] REPOSITORY TYPE CODE TESTS RESULT OUT OF REFERENCE UNITS RANGE LAB SMIB <1.0 AI Sm Antibody <0.2 Result Comment: NEGATIVE Negative: <1.0 AI Positive: >0.9 AI LAB RNPIB <1.0 AI MONITORING SPECIALIST Antibody 0.6 Result Comment: NEGATIVE Negative: <1.0 AI Positive: >0.9 AI LAB SSAIB <1.0 AI SSA Antibody <0.2 Result Comment: NEGATIVE Negative: <1.0 AI Positive: >0.9 AI LAB SSBIB <1.0 AI SSB Antibody <0.2 Result Comment: NEGATIVE Negative: <1.0 AI Positive: >0.9 AI LAB CENTIB <1.0 AI Centromere <0.2 Result Comment: NEGATIVE Negative: <1.0 AI Positive: >0.9 AI LAB SCLIB <1.0 AI Scleroderma IgG Ab <0.2 Result Comment: NEGATIVE Negative: <1.0 AI Positive: >0.9 AI LAB JO1IB <1.0 AI LEXY 1 Antibody <0.2 Result Comment: NEGATIVE Negative: <1.0 AI Positive: >0.9 AI LAB RRNPIB <1.0 AI Ribosomal MONITORING SPECIALIST <0.2 Result Comment: NEGATIVE Negative: <1.0 AI Positive: >0.9 AI LAB CHRMIB <1.0 AI Chromatin Antibody <0.2 Result Comment: NEGATIVE Negative: <1.0 AI Positive: >0.9 AI Performed By: #### CMP #### [address] [phone] #### CK, HSCRP, RF, TSH, WSR, ANTSSA, SSB, ANAIFR, ANABLL, CCP, ENAID, DNA #### [facility] [email or web address] [address] [place] [address] DNA ANTIBODY W/ CONF. Collected: 12/07/2017 Status: F Source: [place] 2:45 PM [facility] REPOSITORY TYPE CODE TESTS RESULT OUT OF REFERENCE UNITS RANGE LAB DNA <30 IU/mL DNA Antibody <12 w/ Conf. Result Comment: Negative for ds DNA Antibodies Negative: <30 IU/mL Equivocal: 30-74 IU/mL Positive: >74 IU/mL Performed By: #### CMP #### [facility] [address] [place] [address] #### CK, HSCRP, RF, TSH, WSR, ANTSSA, SSB, ANAIFR, ANABLL, CCP, ENAID, DNA #### [place] [address] PROGRESS Observed: 12/07/2017 Status: COMPLETED Source: [place] 2:10 PM [facility] REPOSITORY HNO ID: [id number] Author: Domitila Rincon Service: (none) Author Type: Physician Type: Progress Notes Filed: 12/07/2017 3:25 PM Note Text: Rody Jimenez is a 37 year old female presenting for Knee Injury and Establish Care She is has been getting some issues with her leg She had been getting some worseing pain on the L leg She had knee pain for some time She then had some knee pain She had seen ortho for this She had xray and MRI done of the foot/ankle and knee Knee MRI shows tibial FX Ankle shows some artritis as well some tendonitis She does not recall and repetative injury She also has other joint pain She has spine. Back pain Has pain in the elbows, wrists, knees ankles She will get some redness and warmth Will swell up Worse in the L elbow and spine Has tried various medications Has tried ice and heat with no relief She will get some redness on her cheeks at time Will get a feeling of heat HISTORIES: PAST MEDICAL HISTORY Diagnosis Date - Anxiety - Calcaneal spur of foot Lt - Depression on zoloft since 2003 - Endometriosis - Multiple thyroid nodules - Post-surgical hypothyroidism PAST SURGICAL HISTORY Procedure Laterality Date - ; THYROIDECTOMY TOTAL OR COMPLETE 08/16/12 Dr Flanagan Romance - COLONOSCOP W/ OR W/O [facility] SPEC 09/10/14 Colonoscopy - EGD W/O OR W/BRUSH/WASH 07/04/2014 EGD - EXPLORATORY OF ABDOMEN 1998 Laparotomy, exp removal 2 cysts and endometrial implants - VAGINAL DELIVERY ONLY x3 FAMILY HISTORY Problem Relation Age of Onset - Diabetes Mother - None Father - None Sister - None Sister Social History: Social History Substance Use Topics - Smoking status: Never Smoker - Smokeless tobacco: Never Used - Alcohol use No Allergies: ALLERGIES No Known Allergies Medications: levothyroxine (SYNTHROID) 150 mcg tablet Take 1 tablet by mouth once daily. Take on empty stomach. For Thyroid. sertraline (ZOLOFT) 50 mg tablet Take 1 tablet by mouth once daily. multivitamin tablet Take 1 tablet by mouth once daily. DIGESTIVE PROBIOTIC 2 billion cell cpSP Take 1 capsule by mouth once daily. REVIEW OF SYSTEMS See HPI PHYSICAL EXAMINATION: BP 128/74 Pulse (!) 56 Temp 36.8 ?C (98.3 ?F) (Oral) Resp 16 Ht 165.1 cm (5' 5) Wt 97.3 kg (214 lb 8 oz) SpO2 98% BMI 35.69 kg/m? General Appearance: Well appearing, alert, in no acute distress, well-hydrated, well nourished.. Musculoskeletal: Shoulders?range of motion grossly normal Left elbow?range of motion is normal however some tenderness over the olecranon, redness, warmth, no swelling Left wrist?range of motion is normal some pain with full flexion extension ulnar and radial deviation, redness, no swelling Left ankle?in walking boot not examined Left knee?some tenderness noted medially, no effusion, some pain with pressure in walking Back?tenderness noted in the thoracic midline as well as paraspinal on the right side, some pain with rotation and flexion. Hands?no swelling or nodules noted in the fingers ASSESSMENT/PLAN: 1. Post-surgical hypothyroidism - ICD9: 244.0, ICD10: E89.0 (primary diagnosis) Continue same dose of Synthroid Check TSH now - TSH BLD 2. Closed fracture of left tibial plateau with routine healing, subsequent encounter - ICD9: V54.16, ICD10: S82.142D Recent diagnosed with this left tibial plateau stress reaction/fracture Has been following with orthopedics Also has some significant arthritis in the left ankle - CONSULT TO RHEUM/IMMUN DISEASE - RHEUMATOID FACTOR BL - DIMITRI BY IFA WITH REFLEX - SED RATE WESTERGREN - CK CREATINE KINASE - COMP METABOLIC PANEL - TSH BLD - C-REACTIVE ULTRA SEN 3. Myalgia - ICD9: 729.1, ICD10: M79.1 4. Multiple joint pain - ICD9: 719.49, ICD10: M25.50 5. Chronic pain of left ankle - ICD9: 719.47, 338.29, ICD10: M25.572, G89.29 Patient was diagnosed with some tendinosis, tendinitis, arthritis in the ankle Also noted with a tibial plateau stress reaction/fracture on the left leg Did have MRI done of the knee and left ankle Had DEXA scan done as well which was normal Orthopedic had recommended evaluation for rheumatologic cause Does get diffuse joint pains worse in her back as well as her left elbow and left wrist Also has joint pain in both knees both ankles and hips at times Does complain of some warmth Also complains of a rash on her cheeks and nose at times Some concern for autoimmune Check blood work as noted below Was also referred to rheumatology - CONSULT TO RHEUM/IMMUN DISEASE - RHEUMATOID FACTOR BL - DIMITRI BY IFA WITH REFLEX - SED RATE WESTERGREN - CK CREATINE KINASE - COMP METABOLIC PANEL - TSH BLD - C-REACTIVE ULTRA SEN Domitila Rincon MD DEXA 12/05/17: FINDINGS: Lumbar Spine (L1-L4): g/cm2 (1.228) / T-score (0.4) / Z-score (0.4) Findings are suggestive of normal bone density with a low fracture risk. Left Femur Total: g/cm2 (0.982) / T-score (-0.2) / Z- score (0.0) Left Femoral Neck: g/cm2 (0.972) / T-score (-0.5) / Z-score (-0.1) Right Femur Total: g/cm2 (1.106) / T-score (0.8) / Z-score (1.0) Right Femoral Neck: g/cm2 (1.171) / T-score (1.0) / Z-score (1.4) BD/Dexa Bone Density Study IMPRESSION: The patient is considered normal as outlined below according to World [place] Organization (WHO) criteria with a low fracture risk MRI knee: FINDINGS: Normal medial meniscus. Normal hyaline cartilage of the medial femorotibial compartment. There is mild osteoarthritic spur formation of the medial knee compartment. Normal medial collateral ligamentous complex (MCL). Normal distal semimembranosus, gracilis and semitendinosus tendons. Normal lateral meniscus. Normal hyaline cartilage of the lateral femorotibial compartment. There is mild osteoarthritic spur formation of the lateral knee compartment. There is reactive marrow edema of the lateral tibial plateau, series 4 images and . Normal proximal tibiofibular articulation. Normal lateral collateral (fibular) ligament. Normal popliteus tendon. Normal biceps femoris tendon. Normal anterior cruciate ligament (ACL). Normal posterior cruciate ligament (PCL). There is arthrosis of the patellofemoral articulation. There is diffuse, less than 50% thickness articular cartilage loss of the patellofemoral compartment. Normal medial and lateral patellar retinaculum. Normal quadriceps tendon. Normal patellar tendon. Normal Hoffa's fat pad. There is a small volume joint effusion. The soft tissues are unremarkable. The otherwise visualized osseous structures are unremarkable IMPRESSION: No meniscal tear. Marrow edema with stress injury or fracture of the lateral tibial plateau. Degenerative change with mild spurring MRI L ankle 11/22/17: FINDINGS: Normal subcutis adipose space. There is minimal posterior tibialis tendinosis with tenosynovitis (axial series 3 images 8-12). Normal flexor digitorum longus tendon. Normal flexor hallucis longus tendon. Normal peroneus longus and brevis tendons. Normal tibialis anterior tendon. Normal extensor hallucis longus tendon. Normal extensor digitorum longus tendons. Normal Achilles tendon and teno-osseous insertion. There is thickening of the proximal plantar fascia with a calcaneal spur. Findings are compatible with plantar fasciitis (sagittal series 7 images 9-14). Normal plantar calcaneal tubercles. Normal intrinsic muscles of the rearfoot. Normal distal tibiofibular syndesmotic ligamentous complex. Normal lateral ligamentous complex. Normal subtalar ligaments and sinus tarsi. There are varices within the tarsal tunnel (axial series 3 images 10-15). Normal deltoid ligamentous complexes. Normal plantar calcaneonavicular (spring) ligament. Normal tibiotalar articulation. Normal talar dome. There is mild subtalar arthrosis (sagittal series 8 images 8-14). There is mild arthrosis of the talonavicular joint (sagittal series 8 images 6-11). Normal calcaneocuboid articulation. Normal navicular-cuneiform articulations IMPRESSION: Posterior tibialis tendinosis with tenosynovitis. Findings compatible with proximal plantar fasciitis. 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 PROGRESS Observed: 12/07/2017 Status: COMPLETED Source: [place] 2:02 PM [facility] REPOSITORY HNO ID: [id number] Author: Olesya Howell Service: (none) Author Type: Telephone Engineer Type: Progress Notes Filed: 12/07/2017 3:25 PM Note Text: HPV EVERY 5 YEARS due on 2008 PAP EVERY 5 YEARS due on 07/17/2017 CNOV Observed: 12/07/2017 Status: COMPLETED Source: [place] 2:00 PM [facility] REPOSITORY Office Visit (FAMDNA) FRIEDARODY Conway ([id number]) 1980 F CHT Date Time Provider Department 12/07/17 2:00 PM DOMITILA RINCON During your visit today, we recorded the following information about you: Temperature Pulse Respiration Blood pressure 98.3 degrees 56/minute 16/minute 128/74 Weight Height 97.3 kg 1.651 m Olesya Howell MA 12/07/2017 2:10 PM Signed Patient presents with: Knee Injury Establish Care Olesya Howell MA 12/07/2017 3:25 PM Signed HPV EVERY 5 YEARS due on 2008 PAP EVERY 5 YEARS due on 07/17/2017 Olesya Howell MA 12/07/2017 2:03 PM Addendum Get blood work done make appointment with rheumatology I will let you know when I get the results [facility] Address: [address] [place], [place] [address] , [place] [address] Domitila Rincon MD 12/07/2017 3:25 PM Signed Rodyfrancisca Jimenez is a 37 year old female presenting for Knee Injury and Establish Care She is has been getting some issues with her leg She had been getting some worseing pain on the L leg She had knee pain for some time She then had some knee pain She had seen ortho for this She had xray and MRI done of the foot/ankle and knee Knee MRI shows tibial FX Ankle shows some artritis as well some tendonitis She does not recall and repetative injury She also has other joint pain She has spine. Back pain Has pain in the elbows, wrists, knees ankles She will get some redness and warmth Will swell up Worse in the L elbow and spine Has tried various medications Has tried ice and heat with no relief She will get some redness on her cheeks at time Will get a feeling of heat HISTORIES: PAST MEDICAL HISTORY Diagnosis Date - Anxiety - Calcaneal spur of foot Lt - Depression on zoloft since 2003 - Endometriosis - Multiple thyroid nodules - Post-surgical hypothyroidism PAST SURGICAL HISTORY Procedure Laterality Date - ; THYROIDECTOMY TOTAL OR COMPLETE 08/16/12 Shawanda Merida - COLONOSCOP W/ OR W/O [facility] SPEC 09/10/14 Colonoscopy - EGD W/O OR W/BRUSH/WASH 07/04/2014 EGD - EXPLORATORY OF ABDOMEN 1998 Laparotomy, exp removal 2 cysts and endometrial implants - VAGINAL DELIVERY ONLY x3 FAMILY HISTORY Problem Relation Age of Onset - Diabetes Mother - None Father - None Sister - None Sister Social History: Social History Substance Use Topics - Smoking status: Never Smoker - Smokeless tobacco: Never Used - Alcohol use No Allergies: ALLERGIES No Known Allergies Medications: levothyroxine (SYNTHROID) 150 mcg tablet Take 1 tablet by mouth once daily. Take on empty stomach. For Thyroid. sertraline (ZOLOFT) 50 mg tablet Take 1 tablet by mouth once daily. multivitamin tablet Take 1 tablet by mouth once daily. DIGESTIVE PROBIOTIC 2 billion cell cpSP Take 1 capsule by mouth once daily. REVIEW OF SYSTEMS See HPI PHYSICAL EXAMINATION: BP 128/74 Pulse (!) 56 Temp 36.8 ?C (98.3 ?F) (Oral) Resp 16 Ht 165.1 cm (5' 5) Wt 97.3 kg (214 lb 8 oz) SpO2 98% BMI 35.69 kg/m? General Appearance: Well appearing, alert, in no acute distress, well-hydrated, well nourished.. Musculoskeletal: Shoulders?range of motion grossly normal Left elbow?range of motion is normal however some tenderness over the olecranon, redness, warmth, no swelling Left wrist?range of motion is normal some pain with full flexion extension ulnar and radial deviation, redness, no swelling Left ankle?in walking boot not examined Left knee?some tenderness noted medially, no effusion, some pain with pressure in walking Back?tenderness noted in the thoracic midline as well as paraspinal on the right side, some pain with rotation and flexion. Hands?no swelling or nodules noted in the fingers ASSESSMENT/PLAN: 1. Post-surgical hypothyroidism - ICD9: 244.0, ICD10: E89.0 (primary diagnosis) Continue same dose of Synthroid Check TSH now - TSH BLD 2. Closed fracture of left tibial plateau with routine healing, subsequent encounter - ICD9: V54.16, ICD10: S82.142D Recent diagnosed with this left tibial plateau stress reaction/fracture Has been following with orthopedics Also has some significant arthritis in the left ankle - CONSULT TO RHEUM/IMMUN DISEASE - RHEUMATOID FACTOR BL - DIMITRI BY IFA WITH REFLEX - SED RATE WESTERGREN - CK CREATINE KINASE - COMP METABOLIC PANEL - TSH BLD - C-REACTIVE ULTRA SEN 3. Myalgia - ICD9: 729.1, ICD10: M79.1 4. Multiple joint pain - ICD9: 719.49, ICD10: M25.50 5. Chronic pain of left ankle - ICD9: 719.47, 338.29, ICD10: M25.572, G89.29 Patient was diagnosed with some tendinosis, tendinitis, arthritis in the ankle Also noted with a tibial plateau stress reaction/fracture on the left leg Did have MRI done of the knee and left ankle Had DEXA scan done as well which was normal Orthopedic had recommended evaluation for rheumatologic cause Does get diffuse joint pains worse in her back as well as her left elbow and left wrist Also has joint pain in both knees both ankles and hips at times Does complain of some warmth Also complains of a rash on her cheeks and nose at times Some concern for autoimmune Check blood work as noted below Was also referred to rheumatology - CONSULT TO RHEUM/IMMUN DISEASE - RHEUMATOID FACTOR BL - DIMITRI BY IFA WITH REFLEX - SED RATE WESTERGREN - CK CREATINE KINASE - COMP METABOLIC PANEL - TSH BLD - C-REACTIVE ULTRA SEN Domitila Rincon MD DEXA 12/05/17: FINDINGS: Lumbar Spine (L1-L4): g/cm2 (1.228) / T-score (0.4) / Z-score (0.4) Findings are suggestive of normal bone density with a low fracture risk. Left Femur Total: g/cm2 (0.982) / T-score (-0.2) / Z-score (0.0) Left Femoral Neck: g/cm2 (0.972) / T-score (-0.5) / Z-score (-0.1) Right Femur Total: g/cm2 (1.106) / T-score (0.8) / Z-score (1.0) Right Femoral Neck: g/cm2 (1.171) / T-score (1.0) / Z-score (1.4) BD/Dexa Bone Density Study IMPRESSION: The patient is considered normal as outlined below according to World Rodriguez Organization (WHO) criteria with a low fracture risk MRI knee: FINDINGS: Normal medial meniscus. Normal hyaline cartilage of the medial femorotibial compartment. There is mild osteoarthritic spur formation of the medial knee compartment. Normal medial collateral ligamentous complex (MCL). Normal distal semimembranosus, gracilis and semitendinosus tendons. Normal lateral meniscus. Normal hyaline cartilage of the lateral femorotibial compartment. There is mild osteoarthritic spur formation of the lateral knee compartment. There is reactive marrow edema of the lateral tibial plateau, series 4 images 16 and 17. Normal proximal tibiofibular articulation. Normal lateral collateral (fibular) ligament. Normal popliteus tendon. Normal biceps femoris tendon. Normal anterior cruciate ligament (ACL). Normal posterior cruciate ligament (PCL). There is arthrosis of the patellofemoral articulation. There is diffuse, less than 50% thickness articular cartilage loss of the patellofemoral compartment. Normal medial and lateral patellar retinaculum. Normal quadriceps tendon. Normal patellar tendon. Normal Hoffa's fat pad. There is a small volume joint effusion. The soft tissues are unremarkable. The otherwise visualized osseous structures are unremarkable IMPRESSION: No meniscal tear. Marrow edema with stress injury or fracture of the lateral tibial plateau. Degenerative change with mild spurring MRI L ankle 11/22/17: FINDINGS: Normal subcutis adipose space. There is minimal posterior tibialis tendinosis with tenosynovitis (axial series 3 images 8-12). Normal flexor digitorum longus tendon. Normal flexor hallucis longus tendon. Normal peroneus longus and brevis tendons. Normal tibialis anterior tendon. Normal extensor hallucis longus tendon. Normal extensor digitorum longus tendons. Normal Achilles tendon and teno-osseous insertion. There is thickening of the proximal plantar fascia with a calcaneal spur. Findings are compatible with plantar fasciitis (sagittal series 7 images 9-14). Normal plantar calcaneal tubercles. Normal intrinsic muscles of the rearfoot. Normal distal tibiofibular syndesmotic ligamentous complex. Normal lateral ligamentous complex. Normal subtalar ligaments and sinus tarsi. There are varices within the tarsal tunnel (axial series 3 images 10-15). Normal deltoid ligamentous complexes. Normal plantar calcaneonavicular (spring) ligament. Normal tibiotalar articulation. Normal talar dome. There is mild subtalar arthrosis (sagittal series 8 images 8-14). There is mild arthrosis of the talonavicular joint (sagittal series 8 images 6-11). Normal calcaneocuboid articulation. Normal navicular-cuneiform articulations IMPRESSION: Posterior tibialis tendinosis with tenosynovitis. Findings compatible with proximal plantar fasciitis. 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 Referring Provider: DOMITILA RINCON [[id number]] Allergies As of Date: 12/07/2017 (No Known Allergies) Date Reviewed: 12/07/2017 Reviewed by: Olesya Ruiz) Dante - Fully Assessed Reason for Visit: Knee Injury [1981] Establish Care [42] Reason For Visit History Recorded Primary Visit Diagnosis:Post-surgical hypothyroidism [E89.0] Other Visit Diagnoses:Closed fracture of left tibial plateau with routine healing, subsequent encounter [S82.142D] Myalgia [M79.1] Multiple joint pain [M25.50] Chronic pain of left ankle [M25.572, G89.29] Order(s):CONSULT TO RHEUM/IMMUN DISEASE [9039] Order #: [id number]: 1 RHEUMATOID FACTOR BL [SQRF] Order #: [id number] FUTURE DIMITRI BY IFA WITH REFLEX [SQANAIFR] Order #: [id number] FUTURE SED RATE WESTERGREN [SQWSR] Order #: [id number] FUTURE CK CREATINE KINASE [SQCK] Order #: [id number] FUTURE COMP METABOLIC PANEL [SQCMP] Order #: [id number] FUTURE TSH BLD [SQTSH] Order #: [id number] FUTURE C-REACTIVE ULTRA SEN [SQHSCRP] Order #: [id number] FUTURE CCP ANTIBODY IGG [SQCCP] Order #: [id number] FUTURE ANTI SSA BLD [SQANTSSA] Order #: [id number] FUTURE ANTI SSB BLD [SQSSB] Order #: [id number] FUTURE Prescriptions as of 12/07/2017 Sig: LEVOTHYROXINE 150 MCG TABLET Take 1 tablet by mouth once d* SERTRALINE 50 MG TABLET Take 1 tablet by mouth once d* MULTIVITAMIN TABLET Take 1 tablet by mouth once d* DIGESTIVE PROBIOTIC 2 BILLION* Take 1 capsule by mouth once * Problem List As Of Date 12/07/2017 Noted Resolved CALCANEAL SPUR [M77.30] INVALID FOR* GENERALIZED ANXIETY DIS [F41.1] INVALID FOR* More... 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.*INVALID FOR* Other instructions from your clinician: Get blood work done make appointment with rheumatology I will let you know when I get the results [facility] Address: [address] [place], [place] [address] , [place] [address] Visit Notes: >> Olesya Howell Edith December 07, 2017 2:02 PM Status: Signed Patient presents with: Knee Injury Establish Care Encounter Status:Closed by DOMITILA RINCON MD on 12/07/17 DEXA BONE DENSITY Observed: 12/05/2017 Status: F Source: [place] STUDY 3:54 PM [facility] Imaging Services [address] [place] [address] Dexa Bone Density Study MR#: [id number] Acct: [id number] Name: RODY MALAVE Rep #: [id number] : 1980 F 37 From: Chong Golden MD PCP: Domitila Rincon Status: REG CLI Study: Dexa Bone Density Study Date of Exam: 12/05/17 Exam# [id number] Ordering Dr: Elijah Rosenthal DO STUDY: DUAL ENERGY X-RAY ABSORPTIOMETRY / DXA REASON FOR EXAM: Female, 37 years old. Left lower tib-fib stress fracture. TECHNIQUE: Bone Mineral Density (BMD) measurements of lumbar spine and bilateral hips were obtained. COMPARISON: None. FINDINGS: Lumbar Spine (L1-L4): g/cm2 (1.228) / T-score (0.4) / Z-score (0.4) Findings are suggestive of normal bone density with a low fracture risk. Left Femur Total: g/cm2 (0.982) / T-score (-0.2) / Z- score (0.0) Left Femoral Neck: g/cm2 (0.972) / T-score (-0.5) / Z- score (-0.1) Right Femur Total: g/cm2 (1.106) / T-score (0.8) / Z- score (1.0) Right Femoral Neck: g/cm2 (1.171) / T-score (1.0) / Z- score (1.4) BD/Dexa Bone Density Study IMPRESSION: The patient is considered normal as outlined below according to World Rodriguez Organization (WHO) criteria with a low fracture risk. Reference Information: The T-score is the number of standard deviations above or below the standard which is normal for young adults at their peak bone mineral density. The World Health Organization (WHO) interprets the T-scores as follows: Above -1 Normal bone density Between -1 and -2.5 Osteopenia Equal to / or below -2.5 Osteoporosis As a practical clinical guideline, osteopenia may be graded as follows: Mild -1 through -1.5 Moderate -1.6 through -2.0 Severe -2.1 through -2.4 The Z-score is the number of standard deviations above or below age-matched controls. A Z-score of less than -1.5 would be considered abnormal. References: 1. NIH Osteoporosis and Related Bone Diseases http://www.osteo.org 2. International Society for Clinical Densitometry http://www.iscd.org 3. National Osteoporosis Foundation http://www.nof.org Electronically Signed: Chogn Golden MD at 8:56 EDT Tel [phone], Service support , CC: Domitila Rincon; Elijah Rosenthal DO Collarette Separator: Signed LOWER EXT JOINT ONLY Observed: 11/22/2017 Status: F Source: [place] (ROUTINE) 5:24 PM [facility] Imaging Services [address] [place] [address] Lower Ext Joint Only (Routine) MR#: [id number] Acct: [id number] Name: RODY MALAVE Rep #: [id number] : 1980 F 37 From: Domitila Crowley MD PCP: Domitila Rincon Status: REG CLI Study: Lower Ext Joint Only (Routine) Date of Exam: 11/22/17 Exam# [id number] Ordering Dr: Elijah Kenyon DPM STUDY: MRI LEFT ANKLE WITHOUT CONTRAST REASON FOR EXAM: Female, 37 years old. Medial ankle pain. History of tarsal tunnel syndrome. History of tibial tendinosis. TECHNIQUE: Standardized fat and water weighted pulse sequences were obtained in all 3 orthogonal planes. COMPARISON: None. FINDINGS: Normal subcutis adipose space. There is minimal posterior tibialis tendinosis with tenosynovitis (axial series 3 images 8-12). Normal flexor digitorum longus tendon. Normal flexor hallucis longus tendon. Normal peroneus longus and brevis tendons. Normal tibialis anterior tendon. Normal extensor hallucis longus tendon. Normal extensor digitorum longus tendons. Normal Achilles tendon and teno-osseous insertion. There is thickening of the proximal plantar fascia with a calcaneal spur. Findings are compatible with plantar fasciitis (sagittal series 7 images 9-14). Normal plantar calcaneal tubercles. Normal intrinsic muscles of the rearfoot. Normal distal tibiofibular syndesmotic ligamentous complex. Normal lateral ligamentous complex. Normal subtalar ligaments and sinus tarsi. There are varices within the tarsal tunnel (axial series 3 images 10- 15). Normal deltoid ligamentous complexes. Normal plantar calcaneonavicular (spring) ligament. Normal tibiotalar articulation. Normal talar dome. There is mild subtalar arthrosis (sagittal series 8 images 8-14). There is mild arthrosis of the talonavicular joint (sagittal series 8 images 6-11). Normal calcaneocuboid articulation. Normal navicular-cuneiform articulations. MRI/Lower Ext Joint Only (Routine) IMPRESSION: Posterior tibialis tendinosis with tenosynovitis. Findings compatible with proximal plantar fasciitis. 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 Electronically Signed: Domitila Crowley MD at 15:55 EDT , Service support , CC: PATRICIA Kenyon; Domitila Rincon Collarette Separator: Signed LOWER EXT JOINT ONLY Observed: 11/22/2017 Status: F Source: [place] (ROUTINE) 5:07 PM [facility] Imaging Services [address] [place] [address] Lower Ext Joint Only (Routine) MR#: [id number] Acct: [id number] Name: RODY MALAVE Rep #: [id number] : 1980 F 37 From: Julio Oakes MD PCP: Domitila Rincon Status: REG CLI Study: Lower Ext Joint Only (Routine) Date of Exam: 11/22/17 Exam# [id number] Ordering Dr: Elijah Rosenthal DO STUDY: MRI LEFT KNEE REASON FOR EXAM: Female, 37 years old. Pain. Decreased range of motion. TECHNIQUE: Standardized fat and water weighted pulse sequences were obtained in all 3 orthogonal planes. COMPARISON: X-ray September 16, 2015. FINDINGS: Normal medial meniscus. Normal hyaline cartilage of the medial femorotibial compartment. There is mild osteoarthritic spur formation of the medial knee compartment. Normal medial collateral ligamentous complex (MCL). Normal distal semimembranosus, gracilis and semitendinosus tendons. Normal lateral meniscus. Normal hyaline cartilage of the lateral femorotibial compartment. There is mild osteoarthritic spur formation of the lateral knee compartment. There is reactive marrow edema of the lateral tibial plateau, series 4 images 16/ and 17/23. Normal proximal tibiofibular articulation. Normal lateral collateral (fibular) ligament. Normal popliteus tendon. Normal biceps femoris tendon. Normal anterior cruciate ligament (ACL). Normal posterior cruciate ligament (PCL). There is arthrosis of the patellofemoral articulation. There is diffuse, less than 50% thickness articular cartilage loss of the patellofemoral compartment. Normal medial and lateral patellar retinaculum. Normal quadriceps tendon. Normal patellar tendon. Normal Hoffa's fat pad. There is a small volume joint effusion. The soft tissues are unremarkable. The otherwise visualized osseous structures are unremarkable. MRI/Lower Ext Joint Only (Routine) IMPRESSION: No meniscal tear. Marrow edema with stress injury or fracture of the lateral tibial plateau. Degenerative change with mild spurring. Electronically Signed: Julio Oakes MD at 19:58 EDT , Service support , CC: Domitila Rincon; Elijah Rosenthal DO Collarette Separator: Signed ORTHOPEDIC VISIT Observed: 11/06/2017 Status: F Source: [place] REPORT 1:55 PM [facility] Orthopaedics AND Sports Medicine [address] [place] [address] OFFICE VISIT Date of Service: 11/03/17 MR#: [id number] Acct: [id number] Name: RODY MALAVE Rep #: [id number] : 1980 Provider: Elijah Rosenthal DO Age/Sex: 37/F Location: [facility] Status: Signed with Addenda ADDENDUM by Elijah Rosenthal DO on 11/06/17 at 1355 Addendum entered and electronically signed by Elijah Rosenthal DO 11/06/17 13:55: HPI: 37-year-old female here with recalcitrant left knee pain that failed nonoperative management to include NSAIDs active modifications physical therapy and injections. Patient reports continued mechanical symptoms to the knee to include the patellofemoral joint lateral joint line. Patient at this point time is frustrated with the knee would like to advance with further imaging studies to determine whether or not operative intervention will be required. No other fevers chills nausea vomiting chest pain or shortness of breath noted at this time. 11/06/17 1355 <Electronically signed by Elijah Rosenthal DO> Date Elijah Rosenthal DO cc: * Signed Intake Intake Visit Reasons: Left Knee Allergies No Known Allergies Allergy (Verified 09/15/17 13:41) Medications levothyroxine 125 mcg capsule PO 09/15/17 [History Confirmed 09/15/17] multivitamin tablet 1 tab PO QAM 09/15/17 [History Confirmed 09/15/17] sertraline 50 mg tablet 50 mg PO QDAY 09/15/17 [History Confirmed 09/15/17] PFSH Medical History Depression with anxiety (Acute) Hypothyroidism (Chronic) Surgical History H/O thyroidectomy (Inactive) S/P removal of ovarian cyst (Inactive) Family History Mother Hypertension Father Hypertension Social History Smoking Status: Never smoker HPI Left Knee: Details: RODY MALAVE is a 37 year old F here today for Ortho Exam Right Knee Skin/Wound: Yes CDI Contralateral Normal: Yes Swelling: No Homans Sign: No Knee ROM: Yes ROM-Extension -20 to 0, Yes ROM-Passive Flexion 0-140, Yes ROM-Flexion 0-140, Yes ROM-Passive Extension -10 to 0 Quad Atrophy: No Stability: NML: Anterior Drawer, NML: Duglas, NML: Posterior Drawer, NML: Valgus 0, NML: Valgus 30, NML: Varus 0, NML: Varus 30, NML: Dial 90, NML: Dial 30 Popliteal Adenopathy: No Apprehension with Lateral Translation: No Patellar Tilt Normal: Yes Patella Grind: No Left Knee Contralateral Normal: Yes Swelling: Yes Homans Sign: No 1+: Effusion Knee ROM: Yes ROM-Extension -20 to 0, Yes ROM-Flexion 0-140, Yes ROM-Passive Extension -10 to 0, Yes ROM-Passive Flexion 0-140 Examination: Yes Pain with flexion, Yes Crepitus, Yes Ashley's Test, Yes Lat jt line tenderness Quad Atrophy: No Stability: NML: Anterior Drawer, NML: Duglas, NML: Posterior Drawer, NML: Valgus 0, NML: Valgus 30, NML: Varus 0, NML: Varus 30, NML: Dial 90, NML: Dial 30 Popliteal Adenopathy: No Apprehension with Lateral Translation: No Patellar Tilt Normal: Yes Patella Grind: No KNEE: Patient is alert and oriented 3 in no acute distress. Appropriate eye contact and affect. Otherwise intact from the L1-S1 distributions. She has positive pulses EHL anterior gastrosoleus peroneals quads hamstrings 5 out of 5. Left knee shows no popliteal masses or calf pain however she has lateral joint line pain a positive Ashley's and Apley's maneuver she has pain with compression across the patellofemoral joint with grind. No obvious J sign to be appreciated with tracking. Quad strength otherwise 5 out of 5. Assessment AND Plan Problems 1. Internal derangement of left knee M23.92 2. Tear of lateral meniscus of left knee, current, unspecified tear type, subsequent encounter S83.270W Plan Assessment: Left knee pain left knee internal derangement left knee lateral meniscus tear. Plan: This point time patient is failed conservative measures to include NSAIDs active modifications physical therapy and injections. Recommendation at this point time and failed conservative measures before an MRI of the left knee to evaluate for internal derangement and probable surgical intervention at that time. Patient will follow-up after MRI completed. Continue to work on home exercise program and physical therapy. NSAIDs as tolerated. Continue with knee sleeve as needed. Any major issues return. Coding Level of Care Code Off vis,est,level 3 Diagnoses Internal derangement of left knee M23.92 Tear of lateral meniscus of left knee, current, unspecified tear type, subsequent encounter S83.509D Encounter type: subsequent encounter Meniscus tear of knee type: unspecified type 11/06/17 1354 <Electronically signed by Elijah Rosenthal DO> Date Elijah Rosenthal DO Cosigner Signature: Date (if applicable) CC: ORTHOPEDIC VISIT Observed: 09/25/2017 Status: F Source: [place] REPORT 10:11 AM [facility] Orthopaedics AND Sports Medicine [address] [place] [address] OFFICE VISIT Date of Service: 09/15/17 MR#: [id number] Acct: [id number] Name: RODY MALAVE Rep #: [id number] : 1980 Provider: Elijah Rosenthal DO Age/Sex: 37/F Location: [facility] Status: Signed with Addenda ADDENDUM by Elijah Rosenthal DO on 09/25/17 at 1011 Addendum entered and electronically signed by Elijah Rosenthal DO 09/25/17 10:11: Patient is alert and oriented 3 no acute distress. I contact and affect. Otherwise intact from the L1-S1 distributions bilaterally she has positive pulses. EHL anterior gastrocsoleus peroneals quads hamstrings 5 out of 5. Right knee examination shows full range of motion remains ligamentously stable. She has no calf pain no popliteal masses. She has mild patellofemoral compression pain. No obvious effusions today. Remains ligaments stable. Left knee examination shows patellofemoral pain with compression. Pain across office pad. Otherwise no medial lateral joint line pain ligamentously stable in all planes are palpable mass or calf pain. Range of motion 0-130. EHL into the gastric soleus peroneals quads hamstrings 5 out of 5. X-rays: Evaluate myself the patient right knee shows mild degenerative changes with a loose body appears to be asymptomatic. This is visualized on both AP and lateral planes. Appears to be in the posterior fossa knee may be locked in the soft tissues. No obvious defect site to be appreciated. Left knee shows relatively healthy joint no obvious bony abnormalities at this point time. Mild changes across the patellofemoral. Assessment: Bilateral knee pain with a loose body to the right knee left knee patellofemoral syndrome. And internal derangement. Bilateral knees. Plan: At this point time we discussed the radiologic and physical physiologic findings with the patient. Perform conservative care to the right knee. However the patient seem to be symptomatic to the left knee. I discussed his therapy brace wear and/or injections. This point time patient would like to proceed with a left knee injection. Obtained consent for injection. Under sterile conditions, injected the patients left knee with a 10cc cocktail of 8cc bupivacaine and 2cc kenalog . The patient tolerated the injection well without any noted complication. Patient should call our office if redness develops, pain worsens or if they have any concerns. Patient will follow with me in 6 weeks. Continue with conservative care working on range of motion. Home exercise program will be provided. The patient fails conservative measures consideration for MRI of potential bilateral knees to evaluate without loose bodies coming from and if symptoms remain to that left knee to evaluate the patellofemoral joint or cartilaginous changes. Any issues please contact me. cpt: [id number] knee injection: [id number] 09/25/17 1011 <Electronically signed by Elijah Rosenthal DO> Date Elijah Rosenthal DO cc: * Signed Intake Vital Signs09/15/17 Height 5 ft 5 in 09/15/17 Weight: 205 lb 09/15/17 Body Mass Index (BMI) 34.1 Intake Visit Reasons: bilateral knee Allergies No Known Allergies Allergy (Verified 09/15/17 13:41) Medications levothyroxine 125 mcg capsule PO 09/15/17 [History Confirmed 09/15/17] multivitamin tablet 1 tab PO QAM 09/15/17 [History Confirmed 09/15/17] sertraline 50 mg tablet 50 mg PO QDAY 09/15/17 [History Confirmed 09/15/17] PFSH Medical History Depression with anxiety (Acute) Hypothyroidism (Chronic) Surgical History H/O thyroidectomy (Inactive) S/P removal of ovarian cyst (Inactive) Family History Mother Hypertension Father Hypertension Social History Smoking Status: Never smoker HPI bilateral knee: Details: RODY MALAVE is a 37 year old F here today for Assessment AND Plan Orders Orders: 09/22/17 1026 <Electronically signed by Elijah Rosenthal DO> Date Elijah Rosenthal DO Cosigner Signature: Date (if applicable) CC: ORTHOPEDIC VISIT Observed: 09/22/2017 Status: F Source: [facility] REPORT 10:26 AM [facility]opa[facility] Medicine [address] [place] [address] OFFICE VISIT Date of Service: 09/15/17 MR#: [id number] Acct: [id number] Name: RODY MALAVE Rep #: [id number] : 1980 Provider: Elijah Rosenthal DO Age/Sex: 37/F [place] [facility] [place]: Signed Intake Vital Signs09/15/17 Body Mass Index (BMI) 34.1 09/15/17 Height 5 ft 5 in 09/15/17 Weight: 205 lb 09/15/17 Body Mass Index (BMI) 34.1 Intake Visit Reasons: bilateral knee Is patient in pain?: Yes Pain scale (1-10): 7 Allergies No Known Allergies Allergy (Verified 09/15/17 13:41) Medications levothyroxine 125 mcg capsule PO 09/15/17 [History Confirmed 09/15/17] multivitamin tablet 1 tab PO QAM 09/15/17 [History Confirmed 09/15/17] sertraline 50 mg tablet 50 mg PO QDAY 09/15/17 [History Confirmed 09/15/17] PFSH Medical History Depression with anxiety (Acute) Hypothyroidism (Chronic) Surgical History H/O thyroidectomy (Inactive) S/P removal of ovarian cyst (Inactive) Family History Mother Hypertension Father Hypertension Social History Smoking Status: Never smoker HPI bilateral knee: Details: RODY MALAVE is a 37 year old F here today for bilateral knee pain. She complains of constant anterior left knee pain x4 years. She denies pain in the right knee, however, cracking sound is how the left knee started. She states about 9 years ago she fell, landed on a nail that went into her left knee but she said the cracking sound she had prior to this incident. She denies radiation of pain. No swelling. No tingling/numbness. Bilateral knees are cracking frequently. She saw a provider at [facility] little over 1 year ago. She did have x-ray of left knee but has been either over 1 year or almost. No prior injections. ROS Const Reports system reviewed and no additional complaints, except as docu Eyes Reports system reviewed and no additional complaints, except as docu ENT Reports system reviewed and no additional complaints, except as docu Card Reports system reviewed and no additional complaints, except as docu Resp Reports system reviewed and no additional complaints, except as docu GI Reports system reviewed and no additional complaints, except as docu Musc Reports joint pain Skin/Breast Reports system reviewed and no additional complaints, except as docu Neuro Yes system reviewed and no additional complaints, except as docu Psych Reports system reviewed and no additional complaints, except as docu Endo Reports system reviewed and no additional complaints, except as docu Moe/Lymph Reports system reviewed and no additional complaints, except as docu Aller/Immun Reports system reviewed and no additional complaints, except as docu Ortho Exam Right Shoulder Skin/Wound: Yes CDI, Yes healed Contralateral Normal: Yes Internal Rotation: T12 SHOULDER: Patient is alert oriented 3 in no acute distress. Appropriate eye contact and affect. Otherwise intact from C5 T2 distributions. She has positive pulses. She has no axillary adenopathy. Incision clean dry and intact. Range of motion active forward elevation is roughly 150 passive 170. External rotation at side is a firm endpoint about 30 . She has negative belly press internal rotation is around T10-T12 region. Abduction external rotation is 8585. Cuff strength 5 out of 5 in all planes. X-rays: Evaluated myself the patient-hardware otherwise well- seated well-placed that is post right total shoulder arthroplasty. No early signs of loosening Assessment AND Plan Problems 1. Primary osteoarthritis of right shoulder M19.011 2. History of arthroplasty of right shoulder Z98.890 Plan Assessment: Status post right total shoulder arthroplasty due to history of osteoarthritis and associated rheumatoid arthritis. Plan: Point time patient doing very well. Patient has excellent range of motion she is back to near full activities. I cautioned her about extension of the shoulder to 4 as she wants to get back and do new into doing yoga. We obviously want to protect the subscapularis. However otherwise really activity as tolerated. I will see her back in 6 months for repeat radiographs for serial follow-up. Otherwise as needed. Orders Orders: Coding Level of Care Code Off vis,est,level 4 Diagnoses Primary osteoarthritis of right shoulder M19.011 Osteoarthritis type: primary History of arthroplasty of right shoulder Z98.890 09/22/17 1026 <Electronically signed by Elijah Rosenthal DO> Date Elijah Rosenthal DO Cosigner Signature: Date (if applicable) CC: KNEE 4 OR MORE Observed: 09/15/2017 Status: F Source: [place] VIEWS 1:54 PM [facility] REPOSITORY [facility] Imaging Services [address] [place] [address]16 Knee 4 or More Views MR#: [id number] Acct: [id number] Name: RODY MALAVE Rep #: [id number] : 1980 F 37 From: Chong Golden MD PCP: Care Physician, No Primary Status: REG CLI Study: Knee 4 or More Views Date of Exam: 09/15/17 Exam# [id number] Ordering Dr: Elijah Rosenthal DO STUDY: X-RAY - LEFT KNEE REASON FOR EXAM: Female, 37 years old. Bilateral knee pain. TECHNIQUE: 4 view(s) of the knee. COMPARISON: None. FINDINGS: Normal visualized distal femur. Normal visualized proximal tibia and fibula. Normal proximal tibiofibular articulation. There is mild degenerative arthrosis of the medial femorotibial compartment. Normal lateral femorotibial compartment. Normal patellofemoral articulation. The soft tissue structures are unremarkable. RAD/Knee 4 or More Views IMPRESSION: Degenerative arthrosis. Electronically Signed: Chong Golden MD at 15:40 EST Tel [phone], Service support , CC: No Primary Care Physician; Elijah Rosenthal DO Collarette Separator: Signed KNEE 4 OR MORE Observed: 09/15/2017 Status: F Source: [place] VIEWS 1:54 PM [facility] REPOSITORY [facility] Imaging Services [address] [place] [address] Knee 4 or More Views MR#: [id number] Acct: [id number] Name: RODY MALAVE Rep #: [id number] : 1980 F 37 From: Chong Golden MD PCP: Care Physician, No Primary Status: REG CLI Study: Knee 4 or More Views Date of Exam: 09/15/17 Exam# [id number] Ordering Dr: Elijah Rosenthal DO STUDY: X-RAY - RIGHT KNEE REASON FOR EXAM: Female, 37 years old. Knee pain. TECHNIQUE: 4 view(s) of the knee. COMPARISON: None. FINDINGS: Normal visualized distal femur. Normal visualized proximal tibia and fibula. Normal proximal tibiofibular articulation. Normal medial femorotibial compartment. Normal lateral femorotibial compartment. Normal patellofemoral articulation. The soft tissue structures are unremarkable. RAD/Knee 4 or More Views IMPRESSION: Normal x-ray examination of the knee. Electronically Signed: Chong Golden MD at 15:40 EST Tel [phone], Service support , CC: No Primary Care Physician; Elijah Rosenthal DO Collarette Separator: Signed ALLERGIES ALLERGIES DATE TYPE / CODE NAME / CODE REACTION SEVERITY SOURCE 01/04/[address] [facility] Allergy/416 Allergies/B74061 Hospital 403990(SNOM 0388(RXNORM) Repository ED CT) Drug NO KNOWN [facility] Class/77452 ALLERGIES Main [place] 1003(SNOMED Repository CT) ENCOUNTERS ENCOUNTERS ADMIT/DISCHARGE ACCOUNT ADMITTING ENCOUNTER LOCATION SOURCE NUMBER CLASS 07/05/2018/07/06/20 [id number] Ambulatory [address] Repository 06/28/2018 [id number] Ambulatory [facility] ing:LABSPEC Repository 02/07/2018/02/09/20 [id number] Ambulatory [address] Repository 01/23/2018/01/24/20 [id number] Ambulatory [address] Repository 01/23/2018/01/26/20 [id number] Ambulatory [address] Repository 01/04/2018 [id number] Ambulatory [facility] ing:HPRAD Repository 01/04/2018/01/05/20 [id number] Ambulatory BMSBuilding:B [place] [facility] Repository 12/07/2017 [id number] Ambulatory [facility] Repository 12/07/2017/12/09/19 [id number] Ambulatory [address] Repository 12/05/2017 [id number] Ambulatory [facility] ing:OPBD Repository 11/29/2017/11/30/19 [id number] Ambulatory BMSBuilding:B [place] [facility] Repository 11/22/2017 [id number] Ambulatory [facility] ing:MRI Repository 11/03/2017/11/04/19 [id number] Ambulatory BMSBuilding:B [place] [facility] Repository 09/15/2017 [id number] Ambulatory [place]aim[place] [facility] ing:HPRAD Repository 09/15/2017/09/16/19 [id number] Ambulatory BMSBuilding:B [place] [facility] Repository PAYERS PAYERS ENCOUNTER GUARANTOR PAYER SUBSCRIBER SOURCE 06/28/2018 RODY Conway Primary RODY [id number] Insurance:CARESOURCEP IRELANDDOB: Community YAMILKA olicy [place]: [id number] [id number] Repository [address]Sfp: (330) Date:2018-06-28P O [phone] () [address]ATTN: [place] [address]LP: 06/28/2018 Secondary NOT GIVENUNK [place] Insurance:SELF PAY [facility] Number: Effective Repository Date:2018-06-28 01/04/2018 RODY DUARTE Primary RODY [place] [id number] Insurance:CARESOURCEP IRELANDDOB: [facility] YAMILKA olicy Number: [id number], [place] [id number] Repository [address]Mdu: (330) Date:2018-01-04P O [phone] () [address]ATTN: [place] [address]SZ: 01/04/2018 Secondary NOT GIVENUNK [place] Insurance:SELF PAY [facility] Number: Effective Repository Date:2018-01-04 01/04/2018 RODY DUARTE Primary RODY [place] [id number] Insurance:CARESOURCEP IRELANDDOB: [facility] YAMILKA olicy Number: [id number], [place] [id number] Repository [address]Hau: (330) Date:2017-11-29P O [phone] () [address]ATTN: [place] [address]DL: 01/04/2018 Secondary NOT GIVENUNK [place] Insurance:SELF PAY [facility] Number: Effective Repository Date:2018-01-04 12/05/2017 RODY GERALD Primary RODY [place] [id number] Insurance:CARESOURCEP IRELANDDOB: Community YAMILKA olicy Number: [id number], [place] [id number] Repository [address]Nqo: (330) Date:2017-11-29P O [phone] () [address]ATTN: [place] [address]PJ: 12/05/2017 Secondary NOT GIVENUNK [place] Insurance:SELF PAY [facility] Number: Effective Repository Date:2017-11-29 11/29/2017 RODY GERALD Primary RODY [place] [id number] Insurance:CARESOURCEP IRELANDDOB: [facility] YAMILKA [facility] Number: [id number], [place] [id number] Repository [address]Yua: (330) Date:2017-11-27P O [phone] () [address]ATTN: [place] [address]YO: 11/29/2017 Secondary NOT GIVENUNK [place] Insurance:SELF PAY [facility] Number: Effective Repository Date:2017-11-29 11/22/2017 RODY GERALD Primary RODY [place] [id number] Insurance:CARESOURCEP IRELANDDOB: [facility] YAMILKA [facility] Number: [id number], [place] [id number] Repository [address]Krj: (330) Date:2017-11-14P O [phone] () [address]ATTN: [place] [address]PA: 11/22/2017 Secondary NOT GIVENUNK [place] Insurance:SELF PAY [facility] Number: Effective Repository Date:2017-11-14 11/03/2017 RODY GERALD Primary RODY [place] [id number] Insurance:CARESOURCEP IRELANDDOB: [facility] YAMILKA [facility] Number: [id number], [place] [id number] Repository [address]Dij: (330) Date:2017-09-15P O [phone] (HP) [address]ATTN: [place] [address]XN: 11/03/2017 Secondary NOT GIVENUNK [place] Insurance:SELF PAY [facility] Number: Effective Repository Date:2017-11-03 09/15/2017 RODY GERALD Primary RODY [place] [id number] Insurance:CARESOURCEP IRELANDDOB: Community YAMILKA olicy Number: [id number], [place] [id number] Repository [address]Zlk: (330) Date:2017-09-15P O [phone] (HP) [address]ATTN: [place] [address]KM: 09/15/2017 Secondary NOT GIVENUNK [place] Insurance:SELF PAY [facility] Number: Effective Repository Date:2017-09-15 09/15/2017 [facility] GERALD Primary RODY Landaver[place] [id number] Insurance:CARESOURCEP IRELANDDOB: Community YAMILKA olicy Number: [id number], [place] [id number] Repository [address]Hxd: (330) Date:2017-09-14P O [phone] (HP) [address]ATTN: [place] [address]YF: 09/15/2017 Secondary NOT GIVENUNK [place] Insurance:SELF PAY [facility] Number: Effective Repository Date:2017-09-14
== END ==
PROVIDERS: Family Provider Family Medicine; PCP Family Medicine; Referring Provider Obstetrics & Gynecology; Visit Provider Obstetrics & Gynecology
DX: Z12.4 Encounter for screening for malignant neoplasm of cervix (principal)
CPT/HCPCS: 87624; 88175; G0145

== ENCOUNTER → 2019-12-11 11:25 | Outpatient (CLI) | payer MEDICAID, SELFPAY ==
[2019-12-11 11:25] VITALS: BMI 34.1
--- NOTE | 2019-12-11 11:25 | RAD_ITS ---
STUDY: X-RAY - RIGHT KNEE REASON FOR EXAM: Female, 39 years old. Nontraumatic knee pain. TECHNIQUE: view(s) of the knee. COMPARISON: None. FINDINGS: Normal visualized distal femur. Normal visualized proximal tibia and fibula. Normal proximal tibiofibular articulation. There is no acute fracture, dislocation or destructive osseous pathology. There is mild narrowing of the medial femoral tibial compartment. There appears to be a osteochondral defect in the femoral condyle. Normal lateral femorotibial compartment. Normal patellofemoral articulation. There is no demonstrated joint effusion. The soft tissue structures are unremarkable. RAD/Knee 4 or More Views IMPRESSION: Degenerative changes in knee with osteochondral defect of the medial femoral condyle. Electronically Signed: Mark Hannon DO at 21:36 EDT Tel [phone], Service support ,
== END ==
PROVIDERS: PCP Family Medicine; Referring Provider Orthopaedic Surgery; Visit Provider Orthopaedic Surgery
DX: M25.561 Pain in right knee (principal)
CPT/HCPCS: 73564

== ENCOUNTER 2023-09-07 16:30 | Outpatient (RCR) | payer MEDICAID, SELFPAY ==
--- NOTE | 2023-08-24 18:05 | HP.PTEVAL_ITS ---
Patient's Visit Information Visit Information Visit Information: NORA MALAVE is a 42 year old F referred to Physical Therapy by Dr. Jimenez Butt DO with a diagnosis of OTHER INTERVERTBRAL DISC DEGENERATION ,[id number]. Date of Evaluation: 08/24/23 Physical Therapist: Tima Terrazas, PT, Cert MDT, OCS Visit Plan Frequency: 2x /Week Duration: 4 Weeks Plan: PT INTERVENTIONS BRIAN EX'S ( TRIAL EXTENSION) DLS ,POSTURAL EX'S ,LEF FLEXABILITY AND MODALTIES FOR PAIN Subjective Subjective: This 42 y/o female present to physical therapy with lumbar radiculopathy. This patient lumbar pain and leg leg radicular symptoms 2010 . Patient pain in leg got better but currently pain has worsen in past ~ 3weeks ago. Patient was unable to get out of bed unable to stand or walk for 1week. Patient to DR Butt and did x-rays showed DDD and prednisone pack which helped symptoms. Patient pain located left LS lateral leg hip to knee . Described as ache cold burning. C/O paresthesia/tingling. Coughing/sneezing -.Bowel/bladder-. Sleeping good at night. Aggravating bending ,lifting twisting ,walking and standing /sitting. Alleviating factors medication. Patient pain affects QOL and function/housework tasks and job demands. Patient goals to decrease pain. 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 Pain Bilateral Back: Pain Intensity (Out of 10): 4 Pain Intensity Range: 10 Left Lower Extremity: Pain Intensity (Out of 10): 6 Comment: lateral leg Objective Objective: POSTURE: mild forward posture GAIT: reciprocal pattern antalgic gait left side NEURO: c/o paresthesia/tingling left leg ,reflexes L3-4,L4-5,L5-S1 1/3 SYMTTRIES: align PALAPTION: tender LS LUMBAR ROM: flexion mod- severe loss ,extension mod loss ,SG's mod loss pain MMT: quads/hams 4-/5 ,hip flexion 3+/5 ,ankle 4/5 GTE 4/5 FLEXABLITY: mod tight hamstrings Special Tests L/S Slump test left side: Positive L/S Slump test right side: Positive L/S Left Straight Leg Raise: Positive L/S Right Straight Leg Raise: Positive Balance/Special Test Scores Oswestry Low Back Score: 31 Goals Goal 1:: Patient to be I with HEP Goal Time Frame: 4-6 Weeks Goal 2:: Patient to demonstrate to 50% improvement with decrease pain and improved function Goal Time Frame: 4-6 Weeks Goal 3:: Patient to improve lumbar ROM for function of recovery to put on shoes and ADLS Goal Time Frame: 4-6 Weeks Goal 4:: Patient to improve back oswestry score by 5 points to improve QOL and function Goal Time Frame: 4-6 Weeks Goal 5:: Patient to increase strength BLE to 4/5 to improve gait Goal Time Frame: 4-6 Weeks Rehabilitation Potential Physical Therapy Diagnosis: This patient has lumbar radiculopathy with possible Disc with derangement below knee with symptoms worse with bending, flexion sitting standin g extension ,improved motion with REIL affects walking standing and job demands thus benefit from skilled PT Rehabilitation Potential: Fair Anticipated Interventions Patient/Client Instruction: Educate patient on: Condition For the Purpose of:: To decrease pain, To increase ROM, To improve muscle performance and motor function, To improve ability to perform ADL's, To increase tolerance to activity/condition/position, To improve ability of physical actions for home/community/work/leisure, To decrease soft tissue restriction, To increase flexibility/ROM, To reduce risk of recurrence and To prevent re-injury Therapeutic Exercise to Include: Strength training, Postural training, Flexibilty training, Dynamic Lumbar Stabilization and Brian Exercises For the Purpose of:: To decrease pain, To increase ROM, To improve muscle performance and motor function, To increase tolerance to activity/condition/position, To improve ability of physical actions for home/community/work/leisure, To improve health of tissue, To decrease soft tissue restriction, To increase flexibility/ROM, To prevent re-injury and To improve tolerance to ADL's Manual Therapy Techniques to Include: Mobilization Comment: LUMBAR For the Purpose of:: To decrease pain, To increase ROM, To improve health of tissue and To decrease soft tissue restriction TENS: Yes IF ES: Yes Cryotherapy (ice pack, ice massage): Yes Thermo therapy (hot pack): Yes Ultrasound (thermal/non thermal): Yes For the Purpose of:: To decrease pain, To increase ROM, To improve muscle performance and motor function, To improve health of tissue and To decrease soft tissue restriction Text: Thank you for the opportunity to evaluate your patient. For Medicare and Medicare HMO plans, please review the plan of care and approve it. It will need to be FAXED BACK to us at [phone] for Medicare purposes. For Medicare only, by signing this I certify the plan of care. Please let me know if there are questions or concerns regarding this plan of care. Physician Signature: Date:
--- NOTE | 2023-10-30 12:53 | HP.PT.NRP ---
Patient Information Patient Information: NORA MALAVE was seen in my office for initial evaluation on 08/24/23. The following Plan of Care was established for this patient: POC Established Initial Frequency: 2x /Week Initial Duration: 4 Weeks Anticipated Interventions Patient/Client Instruction: Educate patient on: Condition For the Purpose of:: To decrease pain, To increase ROM, To improve muscle performance and motor function, To improve ability to perform ADL's, To increase tolerance to activity/condition/position, To improve ability of physical actions for home/community/work/leisure, To decrease soft tissue restriction, To increase flexibility/ROM, To reduce risk of recurrence and To prevent re-injury Therapeutic Exercise to Include: Strength training, Postural training, Flexibilty training, Dynamic Lumbar Stabilization and Johan Exercises For the Purpose of:: To decrease pain, To increase ROM, To improve muscle performance and motor function, To increase tolerance to activity/condition/position, To improve ability of physical actions for home/community/work/leisure, To improve health of tissue, To decrease soft tissue restriction, To increase flexibility/ROM, To prevent re-injury and To improve tolerance to ADL's Manual Therapy Techniques to Include: Mobilization Comment: LUMBAR For the Purpose of:: To decrease pain, To increase ROM, To improve health of tissue and To decrease soft tissue restriction TENS: Yes IF ES: Yes Cryotherapy (ice pack, ice massage): Yes Thermo therapy (hot pack): Yes Ultrasound (thermal/non thermal): Yes For the Purpose of:: To decrease pain, To increase ROM, To improve muscle performance and motor function, To improve health of tissue and To decrease soft tissue restriction Last Seen Last Seen: This patient was last seen in our office . Pertinent comments regarding their Physical therapy will appear below: Patient seen for PT for back pain with PT nor helping thus RTD At this point I will be discontinuing this patient from physical therapy. I would be happy to see this patient again in the future if found appropriate by the physician. Thank you! Tima Terrazas, PT, Cert MDT, OCS Balance/Gait/Functional tests Balance/Special Test Scores Oswestry Low Back Score: 31
== END 2023-09-07 19:00 | disposition home or self-care (01) ==
LOC: PT 16:30
PROVIDERS: PCP Family Medicine; Referring Provider Orthopaedic Surgery; Visit Provider Orthopaedic Surgery
DX: M51.37 Other intervertebral disc degeneration, lumbosacral region (principal)
CPT/HCPCS: 97014; 97110; 97162; G0283